=== PATIENT | female | born 1935 | race Caucasian/White ===

== ENCOUNTER 2016-10-13 08:10 | Inpatient (IN) | payer MEDICAID, OTHER ==
[~2016-10-13] VITALS: Ht 160 cm; Wt 48.1 kg
[2016-10-13] VITALS (21 sets, daily range): BP systolic 64–138; BP diastolic 33–79; PULSE 81–119; RESP 14–37; TEMP 98.7–99.5; O2SAT 80–100
[~2016-10-13 08:10] MED LIST: ACET-2165 PO; CARB1TAB21 GT; CAT.1 GT; CLON0.5T4 PO; CLON1POW; COLL100 GT; DEXT1CAP3 PO; DOCU-144 PO; DONE10TA4 PO; DONE10TA44 GT; ESCI10TA PO; FER300L GT; GLU500 PO; HYDR-1189 GT; INSU100V11 SQ; INSU100V7 SUBCUT; LACTIN GT; LEVE500T77 GT; LIP20 GT; LIP20 PO; LOVI30 SQ; MAGN400O4 GT; MAGN400O4 PO; MEGE400O2 PO; MEMA10TA12 PO; MEMA5TAB PO; MULT-1117; MULT240L3 GT; OLAN15TA3 PO; OLAN7.5T3 PO; PROR4 PO; RISP1TAB27 PO; RISP3TAB8 PO; SSNOVOLOG SUBCUT; TRIH2TAB3 PO; TYLL650 GT; VALS160T2; VIT C GT; ZIN220 GT; [UNRECOGNIZED DRUG - CODE] GT
--- NOTE | 2016-10-13 08:10 | NUR ---
Pt BIB BLS, placed to ER bed 01 and to alarm security or surveillance monitor. Pt report given to GUALBERTO Clayton.
--- NOTE | 2016-10-13 08:11 | NUR ---
RT called STAT Addendum: 10/13/16 at 0851 by VIET Patient placed on non-rebreather mask at 15L per MD verbal order.
--- NOTE | 2016-10-13 08:12 | NUR ---
Patient non-verbal, moans at times, limbs contracted. Per laborer steel handling patient began becoming tachycardia (120s) around 3AM. Patient appears to be in respiratory distress, non-rebreather mask present on arrival, tachypenic, accessory muscle usage and wheezing noted throughout lung feilds. Per laborer steel handling, the respiratory distress is patient's baseline. No other complaints/injuries per laborer steel handling/patient or noted.
--- NOTE | 2016-10-13 08:13 | NUR ---
RT at bedside. Patient's 02 93% on non-rebreather mask at 15L.
--- NOTE | 2016-10-13 08:13 | NUR ---
SBP 90's and levophed increased to 10 mcgs. Will continue to monitor.
--- NOTE | 2016-10-13 08:14 | NUR ---
Dr Gutierres at bedside.
[2016-10-13] MEDS ORDERED: NACL 0.9% 1,000 ML IV ONE ×3 (08:30→10:30)
[2016-10-13] MEDS ORDERED: IPRATROPIUM/ALBUTEROL SULFATE 3 ML AMPUL.NEB INH ONE (08:30)
--- NOTE | 2016-10-13 08:40 | NUR ---
RT placed patient on 2L NC (what patient is on at [facility] per paperwork). Addendum: 10/13/16 at 1240 by VIET per MD chappell order
--- NOTE | 2016-10-13 08:45 | NUR ---
93% on 2L NC (what patient is on at [facility] per paperwork).
[2016-10-13 08:55] LABS: BLOOD GAS BASE EXCESS 3.9 mmol/L (-3.0-3.0); BLOOD GAS COHb% 0.1 % (0.5-1.5); BLOOD GAS HHB 6.4 % (0.0-6.0); BLOOD GAS PH 7.357 (7.350-7.450); BLOOD O2Hb% 92.8 % (94.0-97.0)
[2016-10-13 09:02] LABS: BASOPHILS # (AUTO) 0.1 K/uL (0.0-0.2); BASOPHILS % (AUTO) 0.3 % (0.0-2.0); EOSINOPHILS # (AUTO) 0.2 K/uL (0.0-0.4); HEMOGLOBIN 10.6 g/dL (12.0-16.0); MEAN CORPUSCULAR HEMOGLOBIN 26 pg (27-31); MONOCYTES # (AUTO) 0.7 K/uL (0.0-1.0)
--- NOTE | 2016-10-13 09:02 | NUR ---
Spoke with Rossi BURCIAGA at [facility] who states that the martinez cath was changed today. Discussed with Dr. Gutierres who states that the trauma caused by changing a martinez would outweigh the benefit. Therefore martinez catheter was not changed out by protocol.
[2016-10-13 09:05] LABS: ANION GAP 5 (5-15); CHLORIDE 106 mmol/L (98-107); CREATININE 1.62 mg/dL (0.55-1.30); POTASSIUM 4.4 mmol/L (3.5-5.1); SODIUM SERUM 144 mmol/L (136-145); UREA NITROGEN, BLOOD 79 mg/dL (8-21)
[2016-10-13 09:08] LABS: INR 1.1 (0.8-1.2); PROTHROMBIN TIME 11.4 SECS (9.5-12.5)
[2016-10-13 09:10] LABS: ALANINE AMINOTRANSFERASE 12 U/L (12-78); ALBUMIN 2.6 g/dL (3.4-4.8); ASPARTATE AMINOTRANSFERASE 23 U/L (10-37); TOTAL BILIRUBIN 0.3 mg/dL (0.0-1.0)
[2016-10-13 09:11] LABS: GLUCOSE 433 mg/dL (70-99)
[2016-10-13 09:12] LABS: EOSINOPHILS % (AUTO) 0.6 % (0.0-4.0); LYMPHOCYTES % (AUTO) 8.8 % (20.5-51.5); MEAN CORPUSCULAR HGB CONC 31 % (32-36); MEAN CORPUSCULAR VOLUME 83 fL (79.0-98.0); NEUTROPHILS # (AUTO) 30.1 K/uL (1.8-7.7); PLATELET COUNT (AUTO) 666 K/uL (130-430); RED BLOOD CELL COUNT(AUTO) 4.08 MIL/uL (4.2-6.2); RED CELL DISTRIBUTION WIDTH 18.8 % (9.0-15.0); WHITE BLOOD COUNT (AUTO) 34.1 K/uL (4.8-10.8)
--- NOTE | 2016-10-13 09:15 | NUR ---
91% on 2L NC (what patient is on at [facility] per paperwork). Addendum: 10/13/16 at 1240 by VIET MD mata
--- NOTE | 2016-10-13 09:25 | NUR ---
Patient's respirations increasing (35-40), decreased tidal volume noted, 02 saturation decreasing to 83% on 02 2L NC (as uses at [facility]). RT called. Dr. Gutierres at bedside. Patient placed on non-rebreather mask at 15L per MD order, 02 saturation fails to rise depsite intervention. Addendum: 10/13/16 at 0946 by VIET Decreased accessory muscle usage noted.
[2016-10-13] MEDS ORDERED: ETOMIDATE 20 MG/ 10 ML VIAL (AMIDATE) IVP ONE (09:30)
[2016-10-13] MEDS ORDERED: SUCCINYLCHOLINE CHLORIDE 20 MG/ML(QUELICIN) IVP ONE (09:30)
[2016-10-13] MEDS ORDERED: ETOMIDATE 20 MG/ 10 ML VIAL (AMIDATE) ONE (09:30)
[2016-10-13] MEDS ORDERED: SUCCINYLCHOLINE CHLORIDE 20 MG/ML(QUELICIN) ONE (09:31)
--- NOTE | 2016-10-13 09:33 | NUR ---
Patient not known to be of DNR status. Patient medicated with 20 mg of Etomidate 0931 100mg of succinocholine 0932 for sedation prior to placement of ET tube. Respiratory therapy at bedside prior to placement. Size 7.5 ET tube 21cm at lip line placed by Dr. Gutierres. Cuff inflated with 10 cc air. Auscultation of breath sounds over bilateral chest wall and color change to CO2 detector. ET tube secured with tape. O2 sats 100% pulse ox. PCXR ordered to check tube placement.
--- NOTE | 2016-10-13 09:38 | NUR ---
Patient does not have any medication present at time of admission.
--- NOTE | 2016-10-13 09:40 | NUR ---
RT NOTES PT INTUBATED VIA ETT SIZE 7.5 AT 21CM LIP LINE BY DR PEREZ AT 0933. BILATERAL BREATH SOUND NOTED. ET CUFF INFLATED WITH 10CC AIR. ETT SECURED WITH LINDEN. PT CONNECTED TO VENTILATOR AT 0940 VIA SETTINGS-- AC 14 VT450 FIO2 40%-- PER DR PEREZ. FOLLOW BY ABG IN ONE HR.
--- NOTE | 2016-10-13 09:40 | NUR ---
Small amount of urine noted in martinez catheter drainage bag, not enough for sample, Dr. Gutierres aware.
[2016-10-13] MEDS ORDERED: AMIN30LI2 GT (09:41)
[2016-10-13] MEDS ORDERED: ASCO500T10 GT (09:41)
[2016-10-13] MEDS ORDERED: FAMO40TA7 GT (09:41)
[2016-10-13] MEDS ORDERED: ALBU2.5V7 INH (09:41)
[2016-10-13] MEDS ORDERED: NA P118E RC (09:41)
[2016-10-13] MEDS ORDERED: DULR10 RC (09:41)
[2016-10-13] MEDS ORDERED: IPRA4AER INH (09:41)
[2016-10-13] MEDS ORDERED: AMIO200T2 GT (09:41)
--- NOTE | 2016-10-13 09:42 | NUR ---
Medication reconciliation completed with information provided by [facility]. Any prior medication reconciliation on file was reviewed and corrected.
--- NOTE | 2016-10-13 09:55 | NUR ---
Patient moving head side to side, unable to remain still, appears to be uncomfortable, crying noted. MD aware. Propofol to begin per MD order.
[2016-10-13] MEDS ORDERED: PROPOFOL DRIP 100 ML IV ONE (10:00)
--- NOTE | 2016-10-13 10:00 | NUR ---
Propofol started at 5mcg/kg/min per MD order and protocol. Remaining with patient.
[2016-10-13 10:03] LABS: NEUTROPHILS % (AUTO) 88.3 % (40.0-70.0)
--- NOTE | 2016-10-13 10:05 | NUR ---
Patient continues to move head side to side, unable to remain still, appears uncomfortable, crying noted. Propofol titrated to 10mcg/kg/min per MD order and protocol. Remaining with patient.
--- NOTE | 2016-10-13 10:10 | NUR ---
Patient did not have enough urine output for sample until now. Dr. Gutierres aware that patient needs antibiotics for sepsis protocol but waiting for urine results in order to do so. MD will order antibiotics when results present.
[2016-10-13] MEDS ORDERED: LORazepam 2 MG/ML VIAL (FOR ER USE) IVP ONE (10:15)
[2016-10-13] MEDS ORDERED: ROCURONIUM BROMIDE 10 MG/ML (ZEMURON) IV ONE (10:15)
--- NOTE | 2016-10-13 10:15 | NUR ---
Patient continues to move head side to side, unable to remain still, appears uncomfortable, crying noted. Propofol titrated to 15mcg/kg/min per MD order and protocol. Remaining with patient.
--- NOTE | 2016-10-13 10:15 | NUR ---
Dr. Gutierres stated to hold rocuronium and ativan.
--- NOTE | 2016-10-13 10:25 | NUR ---
Patient continues to move head side to side, unable to remain still, appears uncomfortable. Propofol titrated to 20mcg/kg/min per MD order and protocol. Remaining with patient.
--- NOTE | 2016-10-13 10:30 | NUR ---
20G IV place to right lower leg after 5 attempts by ursing staff for second IV access.
--- NOTE | 2016-10-13 10:35 | NUR ---
Patient no longer moving head side to side, laying in bed calmly, appears comfortable. Propofol remaining at 20mcg/kg/min. Dr. Gutierres aware. Remaining with patient.
--- NOTE | 2016-10-13 10:36 | NUR ---
OG tube placed by Dr. Gutierres with immediant return of gastric content to LIS.
--- NOTE | 2016-10-13 10:50 | NUR ---
RT NOTES BASED ON POST INTUBATION ABG RESULTS, FIO2 INCREASED TO 50% PER DR. PEREZ. GUALBERTO ABRAHAM NOTIFED.
[2016-10-13 10:54] LABS: ABG TOTAL HEMOGLOBIN 9.7 G/dL (12.0-18.0); BLOOD GAS BASE EXCESS 0.1 mmol/L (-3.0-3.0); BLOOD GAS COHb% 0.1 % (0.5-1.5); BLOOD GAS HHB 9.9 % (0.0-6.0); BLOOD GAS PH 7.381 (7.350-7.450); BLOOD O2Hb% 89.3 % (94.0-97.0)
--- NOTE | 2016-10-13 11:00 | NUR ---
Dr. Gutierres notified that propofol is now effective, stated do not need to give rocuronium and ativan.
[2016-10-13 11:04] LABS: BILIRUBIN,URINE NEGATIVE (NEGATIVE); BLOOD, URINE 2+ (NEGATIVE); CLARITY/URINE HAZY (CLEAR); COLOR,URINE YELLOW (YELLOW); GLUCOSE,URINE NEGATIVE (NEGATIVE); KETONES,URINE NEGATIVE (NEGATIVE); LEUKOCYTE ESTERASE ,URINE 3+ (NEGATIVE); NITRITE, URINE POSITIVE (NEGATIVE); PH,URINE 7.5 (5.0-8.0); PROTEIN URINE 2+ (NEGATIVE); UROBILINOGEN,URINE 0.2 (0.2-1.0)
[2016-10-13 11:11] LABS: BACTERIA,URINE MODERATE /HPF (None Seen); MUCUS,URINE None Seen /LPF (None Seen); WBC,URINE >100 /HPF (0-3)
--- NOTE | 2016-10-13 11:15 | NUR ---
Patient will be admitted to care of Dr. Teran. Admitted to ICU unit. Will go to room 8. Belongings list completed. Summary report printed. Report given at bedside to Meri BURCIAGA.
--- NOTE | 2016-10-13 11:25 | NUR ---
Spoke to Meri ICU nurse about Dr. Gutierres ordering antibiotics for patient, stated will administer. aware
--- NOTE | 2016-10-13 11:35 | NUR ---
Note kelli in EDM - 10/13/16 at 1231 by VIET Patient no longer moving head side to side, laying in bed calmly, appears comfortable. Propofol remaining at 20mcg/kg/min. Dr. Guteirres aware. Remaining with patient.
[2016-10-13] MEDS ORDERED: MILK OF MAGNESIA 30 ML UDC PO PRN (11:45)
[2016-10-13] MEDS ORDERED: MILK OF MAGNESIA 30 ML UDC GT PRN (11:45)
[2016-10-13] MEDS ORDERED: NA PHOS,M-B/NA PHOS,DI-BA 118 ML (FLEET ENEMA) RC SCH (11:45)
[2016-10-13] MEDS: BISACODYL 10 MG/SUPPOSITORY RC SCH (11:45)
[2016-10-13] MEDS ORDERED: PIPERACILLIN/TAZO 3.375/DEX-IS 50 ML IV ONE (11:45)
[2016-10-13] MEDS ORDERED: VANCOMYCIN HCL 1 GM/NS PREMIX 250 ML IV ONE ×2 (11:45→14:45)
--- NOTE | 2016-10-13 11:45 | NUR ---
Received pt orally intubated 7.5/21 cm lip line . Sedated on diprivan at 20 mcgs infusing thru the left arm PICC line. sedated to Gibbs scale level 4. SR on monitor. VSS. HOB up. Pt has an oral NG tube and placement verified. Abd with colostomy and emptied for large formed brown stool. Good bowel sounds heard. Drew cath with foul smelling urine, brooke in bag. Pts extremites contracted. No pedal edema. Pulses felt. Pt has multiple decubs noted to both hips, and left ankle. Pt has a 20g IV to right foot with IVF infusing at 200 cc/hr. Will continue to monitor pt.
--- NOTE | 2016-10-13 11:49 | NUR ---
consult for dr. boo called (dr. arriola specification writer) spoke with julia dialed [phone]
--- NOTE | 2016-10-13 11:59 | NUR ---
consult for dr. brown (dr. griffith pavilion cutter) called spoke to marychuy dialed [phone]
[2016-10-13] MEDS ORDERED: AMIODARONE HCL 200 MG TABLET GT ONE (12:15)
[2016-10-13] MEDS ORDERED: BISACODYL 10 MG/SUPPOSITORY RC ONE (12:15)
--- NOTE | 2016-10-13 13:00 | NUR ---
Dr. Gallagher in to see pt. Orders left. Cultures for Blood, sputum, urine sent to lab by ED. ABX will be started. Urine output low and Dr. Gallagher aware. He would like to be called later today if it remains low. Will continue to monitor.
[2016-10-13] MEDS: ALBUTEROL SULFATE 0.083% 2.5 MG/3 ML VIAL.NEB INH PRN ×3 (13:18→20:07)
[2016-10-13] MEDS: MEROPENEM 500 MG in NS 50 ML IV SCH ×2 (13:19→22:43)
[2016-10-13] MEDS: 0.45% NS 1,000 ML IV SCH ×3 (13:19→22:51)
--- NOTE | 2016-10-13 13:30 | NUR ---
Repositioned in bed with pillow support. VSS. SR on monitor. Will continue to monitor. Dr. Fisherium in to see pt. Orders left.
--- NOTE | 2016-10-13 15:30 | NUR ---
Wound care done to all wounds. Photos taken and posted. Repositioned pt in bed with pillow support.
[2016-10-13] MEDS: AMIODARONE HCL 200 MG TABLET GT SCH (16:30)
[2016-10-13] MEDS: CARBIDOPA/LEVODOPA 25/100 MG TABLET GT SCH ×2 (16:32→22:44)
[2016-10-13] MEDS ORDERED: NOREPINEPHRINE 4 MG/4 ML VIAL IV ONE (16:48)
[2016-10-13] MEDS: ACETAMINOPHEN 650 MG/20.3 ML UDC GT PRN (17:03)
[2016-10-13] MEDS ORDERED: LORazepam 2 MG/ML VIAL ONE (17:03)
[2016-10-13] MEDS: HYDROCORTISONE SOD SUCC 100 MG/2 ML VIAL IVP SCH ×2 (17:15→22:44)
[2016-10-13] MEDS: INSULIN REGULAR, HUMAN 100 UNITS/ML, 10 ML VIAL (novoLIN R) SUBCUT PRN (17:21)
--- NOTE | 2016-10-13 17:25 | NUR ---
RT NOTES Dr Gallagher added PEEP 4 cmH2O on vent settings per RN.
[2016-10-13] MEDS ORDERED: HYDROCORTISONE SOD SUCC 100 MG/2 ML VIAL IVP ONE (17:30)
--- NOTE | 2016-10-13 17:50 | NUR ---
SBP 60-70's. Dr. Gallagher notified and orders left.
--- NOTE | 2016-10-13 18:10 | NUR ---
Levophed started at 5 mcgs/min for SBP 60's. Will continue to monitor.
[2016-10-13] MEDS: NOREPINEPHRINE BITARTRATE 4 MG in NS 246 ML IV PRN ×2 (18:15→22:53)
[2016-10-13] MEDS: LORazepam 2 MG/ML VIAL IVP PRN (18:30)
--- NOTE | 2016-10-13 18:30 | NUR ---
Levophed increased to 7mchs for SBP 80's. Will continue to monitor.
--- NOTE | 2016-10-13 18:45 | NUR ---
Levophed increased to 10 mcgs. Will continue to monitor.
--- NOTE | 2016-10-13 19:25 | NUR ---
PM SHIFT ASSESSMENT Pt is unable to make needs known due to sedation. Diprivan @25 mcg/kg/min, Gibbs scale of 4. No s/s of acute distressed noted. Pt is vented, and tolerating settings well. SR/ST noted on monitor. PICC line to YASIR and ALTAGRACIA, no s/s of infiltration noted. IVF infusing. Levophed infusing @ 14 mcg/min, all VS stable. OG tube noted, auscultated for correct placement, clamped. Gtube noted, auscultated for correct placement, clamped. Colostomy bag noted at LLQ. Drew catheter draining to gravity. Multiple wounds noted with dressings in place, clean, dry and intact. Safety precautions in place, will continue to monitor.
--- NOTE | 2016-10-13 19:30 | NUR ---
LEVOPHED titrated from 12mcg/min to 14mcg/min. Will continue to monitor.
[2016-10-13] MEDS: PROPOFOL DRIP 100 ML IV PRN (20:04)
[2016-10-13] MEDS: FAMOTIDINE 20 MG TABLET GT SCH (22:44)
[2016-10-13] MEDS: DOCUSATE SODIUM 100 MG/10 ML UDC GT SCH (22:44)
--- NOTE | 2016-10-13 23:30 | NUR ---
LEVOPHED titrated from 14mcg/min to 10mcg/min. Will continue to monitor.
--- NOTE | 2016-10-13 23:30 | NUR ---
DIPRIVAN titrated from 25mcg/kg/min to 30mcg/kg/min. Will continue to monitor.
[2016-10-14] VITALS (36 sets, daily range): BP systolic 94–164; BP diastolic 27–59; PULSE 64–83; RESP 17–26; TEMP 97–98; O2SAT 97–100
[2016-10-14] MEDS: INSULIN REGULAR, HUMAN 100 UNITS/ML, 10 ML VIAL (novoLIN R) SUBCUT PRN ×4 (01:18→18:32)
--- NOTE | 2016-10-14 01:30 | NUR ---
LEVOPHED titrated from 10mcg/min to 8mcg/min. Will continue to monitor.
[2016-10-14] MEDS: 0.45% NS 1,000 ML IV SCH ×4 (02:45→18:25)
[2016-10-14] MEDS ORDERED: NOREPINEPHRINE 4 MG/4 ML VIAL IV ONE (03:24)
[2016-10-14] MEDS: PROPOFOL DRIP 100 ML IV PRN ×2 (04:28→18:05)
--- NOTE | 2016-10-14 04:30 | NUR ---
LEVOPHED titrated from 8mcg/min to 5mcg/min. Will continue to monitor.
--- NOTE | 2016-10-14 05:05 | NUR ---
CHG CHG bath given. Pt tolerated care well. Will continue to monitor.
[2016-10-14] MEDS: NOREPINEPHRINE BITARTRATE 4 MG in NS 246 ML IV PRN (05:18)
[2016-10-14] MEDS: MEROPENEM 500 MG in NS 50 ML IV SCH ×3 (05:28→22:24)
[2016-10-14] MEDS: HYDROCORTISONE SOD SUCC 100 MG/2 ML VIAL IVP SCH ×3 (05:28→22:24)
--- NOTE | 2016-10-14 06:00 | NUR ---
LEVOPHED titrated off. Will continue to monitor.
[2016-10-14 06:14] LABS: HEMATOCRIT 24.8 % (36-48); HEMOGLOBIN 8.2 g/dL (12.0-16.0); MEAN CORPUSCULAR HEMOGLOBIN 28 pg (27-31); MEAN CORPUSCULAR HGB CONC 33 % (32-36); MEAN CORPUSCULAR VOLUME 83 fL (79.0-98.0); PLATELET COUNT (AUTO) 448 K/uL (130-430); RED BLOOD CELL COUNT(AUTO) 2.98 MIL/uL (4.2-6.2); RED CELL DISTRIBUTION WIDTH 18.2 % (9.0-15.0)
[2016-10-14 06:37] LABS: WHITE BLOOD COUNT (AUTO) 38.5 K/uL (4.8-10.8)
[2016-10-14 06:44] LABS: ANION GAP 7 (5-15); CHLORIDE 114 mmol/L (98-107); CREATININE 1.17 mg/dL (0.55-1.30); GLUCOSE 390 mg/dL (70-99); POTASSIUM 3.9 mmol/L (3.5-5.1); SODIUM SERUM 146 mmol/L (136-145); UREA NITROGEN, BLOOD 55 mg/dL (8-21)
--- NOTE | 2016-10-14 07:35 | NUR ---
ENDORSEMENT Pt care endorsed to GUALBERTO Acuna at bedside using nursing SBAR.
--- NOTE | 2016-10-14 07:50 | NUR ---
Call placed to Dr. Vivas's exchange to report positive blood culture.
[2016-10-14 08:02] LABS: BLOOD GAS BASE EXCESS -3.7 mmol/L (-3.0-3.0); BLOOD GAS PH 7.419 (7.350-7.450)
[2016-10-14 08:03] LABS: ABG TOTAL HEMOGLOBIN 7.8 G/dL (12.0-18.0); BLOOD GAS COHb% 0.2 % (0.5-1.5); BLOOD GAS HHB 2.4 % (0.0-6.0); BLOOD O2Hb% 97.2 % (94.0-97.0)
[2016-10-14] MEDS: DOCUSATE SODIUM 100 MG/10 ML UDC GT SCH ×2 (09:00→21:04)
[2016-10-14] MEDS: BISACODYL 10 MG/SUPPOSITORY RC SCH (09:00)
[2016-10-14 09:09] LABS: BAND % (MANUAL) 37 % (0-6); BASOPHILS % (MANUAL) 0 % (0-2); EOSINOPHILS % (MANUAL) 0 % (0-7); LYMPHOCYTES % (MANUAL) 6 % (20-46); METAMYELOCYTES % 5 % (0-0); MONOCYTES % (MANUAL) 1 % (0-11)
[2016-10-14] MEDS: FERROUS SULFATE 300 MG/5 ML UDC GT SCH (09:37)
[2016-10-14] MEDS: AMIODARONE HCL 200 MG TABLET GT SCH (09:38)
[2016-10-14] MEDS: ASCORBIC ACID 500 MG TABLET GT SCH (09:39)
[2016-10-14] MEDS: CARBIDOPA/LEVODOPA 25/100 MG TABLET GT SCH ×3 (09:39→21:03)
[2016-10-14] MEDS: FAMOTIDINE 20 MG TABLET GT SCH ×2 (09:39→21:03)
[2016-10-14] MEDS: MULTIVITS W-MIN/FERROUS GLUC 15 ML UDC GT SCH (09:40)
[2016-10-14] MEDS: ENOXAPARIN SODIUM 30 MG/0.3 ML SYRINGE SQ SCH (09:41)
--- NOTE | 2016-10-14 09:45 | NUR ---
Meds given this AM through G-tube and G-tube leaking same color as meds given earlier. Abd soft with bowel sounds. Will monitor. Comfortable on Diprivan at 20 mcgs.
--- NOTE | 2016-10-14 11:00 | NUR ---
Wound care done to both hips and left ankle. GT dressing changed.
[2016-10-14] MEDS: LORazepam 2 MG/ML VIAL IVP PRN ×2 (11:03→20:32)
--- NOTE | 2016-10-14 11:15 | NUR ---
Call out to Dr. Vivas to report corrected blood culture report. No call back from earlier this AM.
--- NOTE | 2016-10-14 12:15 | NUR ---
Dr. Gallagher in to see pt. Orders left. Rt made aware of vent changes.
--- NOTE | 2016-10-14 12:45 | NUR ---
Oral NG removed and left upper PICC line removed per MD order.
[2016-10-14] MEDS ORDERED: GENTAMICIN 100 mg/50 mL NS 50 ML IV ONE (13:00)
--- NOTE | 2016-10-14 14:01 | NUR ---
consult for dr. san called spoke to radha dialed [phone]
--- NOTE | 2016-10-14 15:00 | NUR ---
Dr. lim informed of leaking G-tube site. Orders left. Consult called to Dr. Lind. Addendum: 10/14/16 at 1611 by Kalpana Wing RN above entry occurred at 1355 .
--- NOTE | 2016-10-14 15:20 | NUR ---
Spoke with Dr. Lind regarding G-tube site leaking green stomach content. Orders left.
--- NOTE | 2016-10-14 15:40 | NUR ---
Too called to inform staff that KUB will not give results MD is looking for. Recommended contrast. Called Dr. Lind and he agreed. Too informed.
[2016-10-14] MEDS ORDERED: GASTROGRAFIN 120 ML ONE (16:19)
--- NOTE | 2016-10-14 19:00 | NUR ---
Report given to oncoming staff. Diprivan at 15 mcgs and pt sedated to caceres level 4.
--- NOTE | 2016-10-14 19:30 | NUR ---
PM SHIFT ASSESSMENT Pt is unable to make needs known due to sedation. Diprivan @15 mcg/kg/min, Gibbs scale of 4. No s/s of acute distressed noted. Pt is vented, and tolerating settings well. SR noted on monitor. PICC line ALTAGRACIA, no s/s of infiltration noted. IVF infusing. VS stable. Gtube noted, auscultated for correct placement, clamped. Colostomy bag noted at LLQ. Drew catheter draining to gravity. Multiple wounds noted with dressings in place, clean, dry and intact. Safety precautions in place, will continue to monitor.
--- NOTE | 2016-10-14 20:20 | NUR ---
DIPRIVAN titrated from 15mcg/kg/min to 25mcg/kg/min. Will continue to monitor.
--- NOTE | 2016-10-14 21:00 | NUR ---
DIPRIVAN titrated from 25mcg/kg/min to 20mcg/kg/min. Will continue to monitor.
[2016-10-15] VITALS (35 sets, daily range): BP systolic 101–152; BP diastolic 30–64; PULSE 64–91; RESP 10–34; TEMP 96.7–98.2; O2SAT 93–100; Ht 160 cm; Wt 48.1 kg
[2016-10-15] MEDS: INSULIN REGULAR, HUMAN 100 UNITS/ML, 10 ML VIAL (novoLIN R) SUBCUT PRN ×5 (00:32→23:43)
[2016-10-15] MEDS: 0.45% NS 1,000 ML IV SCH ×4 (00:40→23:41)
--- NOTE | 2016-10-15 04:30 | NUR ---
DIPRIVAN titrated from 20mcg/kg/min to 15mcg/kg/min. Will continue to monitor.
[2016-10-15] MEDS: MEROPENEM 500 MG in NS 50 ML IV SCH ×3 (05:41→21:18)
[2016-10-15] MEDS: HYDROCORTISONE SOD SUCC 100 MG/2 ML VIAL IVP SCH ×3 (05:42→21:16)
[2016-10-15 06:53] LABS: ALANINE AMINOTRANSFERASE 10 U/L (12-78); ALBUMIN 1.7 g/dL (3.4-4.8); ANION GAP 10 (5-15); ASPARTATE AMINOTRANSFERASE 36 U/L (10-37); CALCIUM 8.4 mg/dL (8.4-11.0); CHLORIDE 114 mmol/L (98-107); CREATININE 0.75 mg/dL (0.55-1.30); GLUCOSE 200 mg/dL (70-99); SODIUM SERUM 146 mmol/L (136-145); TOTAL BILIRUBIN 0.2 mg/dL (0.0-1.0); TOTAL PROTEIN, SERUM 6.5 g/dL (6.4-8.3); UREA NITROGEN, BLOOD 34 mg/dL (8-21)
[2016-10-15 07:00] LABS: POTASSIUM 2.7 mmol/L (3.5-5.1)
[2016-10-15 07:11] LABS: HEMATOCRIT 25.4 % (36-48); HEMOGLOBIN 8.1 g/dL (12.0-16.0); MEAN CORPUSCULAR HEMOGLOBIN 26 pg (27-31); MEAN CORPUSCULAR HGB CONC 32 % (32-36); MEAN CORPUSCULAR VOLUME 82 fL (79.0-98.0); PLATELET COUNT (AUTO) 345 K/uL (130-430); RED BLOOD CELL COUNT(AUTO) 3.08 MIL/uL (4.2-6.2); RED CELL DISTRIBUTION WIDTH 18.9 % (9.0-15.0)
--- NOTE | 2016-10-15 07:25 | NUR ---
ENDORSEMENT Pt care endorsed to GUALBERTO Acuna at bedside using nursing SBAR.
[2016-10-15 07:29] LABS: WHITE BLOOD COUNT (AUTO) 22.6 K/uL (4.8-10.8)
--- NOTE | 2016-10-15 07:30 | NUR ---
Received pt sedated on diprivan comfortably. Arouses to stimuli. 7.5 ET taped 21 cm lip line. Comfortable on AC 10/450/40%/p5. Suctioned thick yellow secretions from ET. Refuses oral care and clenches teeth with bite block in place. HOB up. ABD with colostomy and GT in place and GT is not leaking. Bowel sounds audible. Right upper arm PICC line in place with IVF infusing at 10 cc/hr and diprivan at 15 mcgs, sedated to caceres scale of level 4. Multiple wounds to hips and ankle with dressings in place. Drew cath with yellow urine in bag. Will continue to monitor pt.
[2016-10-15] MEDS: PROPOFOL DRIP 100 ML IV PRN ×2 (07:34→17:58)
[2016-10-15 08:04] LABS: ABG TOTAL HEMOGLOBIN 7.7 G/dL (12.0-18.0); BLOOD GAS PH 7.333 (7.350-7.450)
[2016-10-15 08:05] LABS: BLOOD GAS COHb% 0.5 % (0.5-1.5); BLOOD GAS HHB 6.3 % (0.0-6.0); BLOOD O2Hb% 92.4 % (94.0-97.0)
[2016-10-15] MEDS: ALBUTEROL SULFATE 0.083% 2.5 MG/3 ML VIAL.NEB INH PRN (08:12)
[2016-10-15] MEDS ORDERED: KCL 40 mEq in 100 mL (PREMIX) 100 ML IV ONE (08:45)
--- NOTE | 2016-10-15 08:56 | NUR ---
Nutrition Update Abdulkadir Scale 10 noted. Pt admitted for septic shock, acute respiratory failure. Diet: N/A BMI: 18.8 kg/m2 RD to follow per nutrition care standards.
[2016-10-15] MEDS: DOCUSATE SODIUM 100 MG/10 ML UDC GT SCH ×2 (09:00→21:16)
[2016-10-15] MEDS: BISACODYL 10 MG/SUPPOSITORY RC SCH (09:00)
--- NOTE | 2016-10-15 09:00 | NUR ---
Pt repositioned in bed with pillow support. HOB up. Pt sedated to caceres scale of level 4. SR on monitor.
[2016-10-15 09:27] LABS: ATYPICAL LYMPHOCYTES % 0 % (0-0); BAND % (MANUAL) 19 % (0-6); BASOPHILS % (MANUAL) 0 % (0-2); EOSINOPHILS % (MANUAL) 0 % (0-7); LYMPHOCYTES % (MANUAL) 10 % (20-46); METAMYELOCYTES % 4 % (0-0); MONOCYTES % (MANUAL) 5 % (0-11)
[2016-10-15] MEDS ORDERED: POTASSIUM CHLORIDE 20 MEQ/PKT PACKET PO ONE (09:45)
[2016-10-15] MEDS ORDERED: FUROSEMIDE 20 MG/2 ML VIAL IVP ONE (09:45)
[2016-10-15] MEDS: AMIODARONE HCL 200 MG TABLET GT SCH (10:02)
[2016-10-15] MEDS: MULTIVITS W-MIN/FERROUS GLUC 15 ML UDC GT SCH (10:02)
[2016-10-15] MEDS: FERROUS SULFATE 300 MG/5 ML UDC GT SCH (10:03)
[2016-10-15] MEDS: FAMOTIDINE 20 MG TABLET GT SCH ×2 (10:03→21:15)
[2016-10-15] MEDS: ASCORBIC ACID 500 MG TABLET GT SCH (10:03)
[2016-10-15] MEDS: CARBIDOPA/LEVODOPA 25/100 MG TABLET GT SCH ×3 (10:03→21:16)
[2016-10-15] MEDS: ENOXAPARIN SODIUM 30 MG/0.3 ML SYRINGE SQ SCH (10:04)
--- NOTE | 2016-10-15 11:30 | NUR ---
Repositioned in bed with pillow support. Continues to be difficult to do oral care with bite block in place. HOB up. SUctioned for thick yellow secretions in ET. Tachypnic at times.
[2016-10-15] MEDS: LORazepam 2 MG/ML VIAL IVP PRN (11:39)
--- NOTE | 2016-10-15 13:00 | NUR ---
CARE ASSUMED CARE ASSUMED FROM Kamryn CORCORAN RN. RESTING QUIETLY, ON VENT, NO RESP DISTRESS. HAS DROOLING OF ORAL SECRETIONS. HAS BITE BLOCK IN PLACE, KEEPS TEETH CLAMPED, UNABLE TO DO ORAL SUCTIONING, ENDOTRACHEAL SUCTIONING DONE.
--- NOTE | 2016-10-15 13:15 | NUR ---
Spoke with Dr. Casarez on the phone and clarified tube feeding order.
--- NOTE | 2016-10-15 13:30 | NUR ---
Report given to Lesia BURCIAGA to assume care.
--- NOTE | 2016-10-15 14:00 | NUR ---
REPOSITIONED REPOSITIONED IN BED, ALL EXTREMITIES ARE CONTRACTED, HAS WOUNDS ON BOTH HIPS. HEELS FLOATED OFF BED WITH PILLOWS, IS ON AIR MATTRESS. COLOSTOMY WITH DK GREEN LIQUID STOOL.
--- NOTE | 2016-10-15 16:00 | NUR ---
FEEDING TUBE FEEDING STARTED WITH NUTREN PULMONARY. WOUND CARE DONE TO WOUNDS LEFT HEEL, LEFT HIP/BUTTOCK, RIGHT HIP/BUTTOCK. RECEIVING DIPRIVAN CONTINUOUSLY AT 15MCG/KG/MIN.
[2016-10-15] MEDS: MUPIROCIN 2% TOPICAL OINTMENT 22 GM TP SCH ×2 (16:08→21:15)
--- NOTE | 2016-10-15 19:10 | NUR ---
REPORT REPORT GIVEN TO NIGHT NURSE TO ASSUME CARE.
--- NOTE | 2016-10-15 19:30 | NUR ---
PM ASSESSMENT PT OBTUNDED, RESPONDS TO NOXIOUS PAIN. INTUBATED TO VENT, SETTINGS AC12, TV400, FIO2 40%, PEEP5. RHONCHI AUSCULTATED BILAT UPPER LOBES, DIMINISHED BILAT LOWER LOBES. ETT 7.5/ 21LL. SR ON THE MONITOR. GT IN PLACE, INFUSING NUTREN PULMONARY@20ML/HR, 60ML RESIDUAL. ROTH CATHETER DRAINING TO GRAVITY W/ YELLOW URINE. COLOSTOMY ON LLQ W/ LOOSE BROWN GREEN STOOL. WOUNDS ON LT AND RT HIPS, SACRUM, AND LT ANKLE ALL COVERED W/ CLEAN DRY DRESSINGS. CONTRACTED ON BUE AND BLE. IV SITE ON ALTAGRACIA PICC DOUBLE LUMEN, INTACT AND PATENT, INFUSING 1/2NS AND PROPOFOL. SAFETY AND ISOLATION PRECAUTIONS IN PLACE, WILL CONTINUE TO MONITOR.
[2016-10-16] VITALS (33 sets, daily range): BP systolic 102–191; BP diastolic 34–81; PULSE 72–103; RESP 17–30; TEMP 96.6–99.2; O2SAT 94–100
--- NOTE | 2016-10-16 02:00 | NUR ---
RESIDUAL RESIDUAL 165ML, FEEDING STOPPED, WILL RECHECK.
--- NOTE | 2016-10-16 04:00 | NUR ---
RESIDUAL RESIDUAL 60ML, FEEDING CONTINUED TO BE OFF, WILL RECHECK.
[2016-10-16] MEDS: INSULIN REGULAR, HUMAN 100 UNITS/ML, 10 ML VIAL (novoLIN R) SUBCUT PRN ×3 (05:36→17:38)
[2016-10-16] MEDS: MEROPENEM 500 MG in NS 50 ML IV SCH ×3 (05:38→22:33)
[2016-10-16] MEDS: HYDROCORTISONE SOD SUCC 100 MG/2 ML VIAL IVP SCH ×2 (05:39→20:41)
--- NOTE | 2016-10-16 06:00 | NUR ---
RESIDUAL RESIDUAL 30ML, FEEDING CONTINUED AT 20ML/HR.
[2016-10-16] MEDS: PROPOFOL DRIP 100 ML IV PRN (06:15)
[2016-10-16 06:27] LABS: ALANINE AMINOTRANSFERASE 9 U/L (12-78); ALBUMIN 1.6 g/dL (3.4-4.8); ANION GAP 6 (5-15); ASPARTATE AMINOTRANSFERASE 15 U/L (10-37); CALCIUM 8.4 mg/dL (8.4-11.0); CHLORIDE 116 mmol/L (98-107); CREATININE 0.74 mg/dL (0.55-1.30); GLUCOSE 285 mg/dL (70-99); POTASSIUM 3.4 mmol/L (3.5-5.1); SODIUM SERUM 145 mmol/L (136-145); TOTAL BILIRUBIN 0.2 mg/dL (0.0-1.0); TOTAL PROTEIN, SERUM 6.1 g/dL (6.4-8.3); UREA NITROGEN, BLOOD 27 mg/dL (8-21)
[2016-10-16 06:55] LABS: HEMATOCRIT 24.1 % (36-48); HEMOGLOBIN 7.4 g/dL (12.0-16.0); MEAN CORPUSCULAR HEMOGLOBIN 26 pg (27-31); MEAN CORPUSCULAR HGB CONC 31 % (32-36); MEAN CORPUSCULAR VOLUME 84 fL (79.0-98.0); PLATELET COUNT (AUTO) 371 K/uL (130-430); RED BLOOD CELL COUNT(AUTO) 2.88 MIL/uL (4.2-6.2); RED CELL DISTRIBUTION WIDTH 18.4 % (9.0-15.0)
[2016-10-16 06:57] LABS: WHITE BLOOD COUNT (AUTO) 20.8 K/uL (4.8-10.8)
--- NOTE | 2016-10-16 07:29 | NUR ---
CLOSING ALL NEEDS MET. ENDORSED CARE TO CHARGE NURSE GUALBERTO DONOVAN.
[2016-10-16 07:51] LABS: BLOOD GAS BASE EXCESS -3.2 mmol/L (-3.0-3.0); BLOOD GAS PH 7.398 (7.350-7.450)
[2016-10-16 07:52] LABS: ABG TOTAL HEMOGLOBIN 7.6 G/dL (12.0-18.0); BLOOD GAS COHb% 0.2 % (0.5-1.5); BLOOD GAS HHB 0.8 % (0.0-6.0); BLOOD O2Hb% 98.2 % (94.0-97.0)
--- NOTE | 2016-10-16 08:00 | NUR ---
ASSESSMENT IS NOT AROUSABLE TO VERBAL OR TACTILE STIMULUS, RECEIVING DIPRIVAN. DIPRIVAN REDUCED TO 10MCG/KG/MIN. RESISTS ORAL CARE, HAS ORAL AIRWAY IN PLACE DUE TO BITING ON ETT. SM AMT SUCTIONED VIA ETT. COLOSTOMY W DK, GREEN DRAINAGE, SM AMT OF STOOL. ROTH DRAINING CLEAR REHANA URINE. ALL EXTREMITIES ARE CONTRACTED, IS ON AIR MATTRESS, HEELS ELEVATED OFF BED W PILLOW. GT TUBE W FEEDING, NUTREN PULMONARY, 60 CC RESIDUAL, FEEDING WILL BE HELD UNTIL MEDS ARE GIVEN.
[2016-10-16] MEDS: BISACODYL 10 MG/SUPPOSITORY RC SCH (09:00)
[2016-10-16 09:27] LABS: ATYPICAL LYMPHOCYTES % 0 % (0-0); BAND % (MANUAL) 2 % (0-6); BASOPHILS % (MANUAL) 0 % (0-2); EOSINOPHILS % (MANUAL) 0 % (0-7); LYMPHOCYTES % (MANUAL) 6 % (20-46); MONOCYTES % (MANUAL) 2 % (0-11)
--- NOTE | 2016-10-16 09:41 | NUR ---
0830 FIO2 TITRATED DOWN TO 30%, SAT 100%, PT TOLERATING. Addendum: 10/16/16 at 0941 by Kenya Jefferson RT Amended: Links added.
[2016-10-16] MEDS ORDERED: FUROSEMIDE 20 MG/2 ML VIAL IVP ONE (09:45)
[2016-10-16] MEDS ORDERED: POTASSIUM CHLORIDE 40 MEQ in 0.45% NS 250 ML IV ONE (10:00)
[2016-10-16] MEDS: AMIODARONE HCL 200 MG TABLET GT SCH (10:00)
[2016-10-16] MEDS: DOCUSATE SODIUM 100 MG/10 ML UDC GT SCH ×2 (10:01→20:42)
[2016-10-16] MEDS: CARBIDOPA/LEVODOPA 25/100 MG TABLET GT SCH ×3 (10:02→20:42)
[2016-10-16] MEDS: FERROUS SULFATE 300 MG/5 ML UDC GT SCH (10:02)
[2016-10-16] MEDS: FAMOTIDINE 20 MG TABLET GT SCH ×2 (10:02→20:42)
[2016-10-16] MEDS: ASCORBIC ACID 500 MG TABLET GT SCH (10:02)
[2016-10-16] MEDS: ENOXAPARIN SODIUM 30 MG/0.3 ML SYRINGE SQ SCH (10:03)
[2016-10-16] MEDS: MULTIVITS W-MIN/FERROUS GLUC 15 ML UDC GT SCH (10:07)
[2016-10-16] MEDS: MUPIROCIN 2% TOPICAL OINTMENT 22 GM TP SCH ×2 (10:08→20:41)
--- NOTE | 2016-10-16 11:00 | NUR ---
MD VISITS DR. DODD SAW PT EARLIER THIS AM, DR. BUTT EXAMINED AND ORDERED. DR. BAILEY EXAMINED, INFORMED OF BLOOD CULTURE RESULTS.
--- NOTE | 2016-10-16 11:16 | NUR ---
VENT CHANGES VENT SETTING CHANGED BY RT, SIMV /03/28 PER MD ORDERS.
--- NOTE | 2016-10-16 12:00 | NUR ---
ASSESSMENT TOLERATING VENT CHANGES AND TUBE FEEDING. HAS LG AMT ORAL SECRETIONS, SUCTIONED. KEEPS MOUTH/TEETH CLENCHED RESULTING IN DIFFICULTY PERFORMING ORAL CARE.
[2016-10-16] MEDS: IPRATROPIUM BROM 0.5 MG/2.5 ML VIAL.NEB (ATROVENT) INH SCH ×2 (13:42→19:40)
[2016-10-16] MEDS: LevALBUTEROL HCL 1.25 MG/0.5 ML *CONC.* VIAL.NEB (XOPENEX CONC.) INH SCH ×2 (13:42→19:40)
[2016-10-16] MEDS: 0.45% NS 1,000 ML IV SCH (14:00)
[2016-10-16] MEDS: GENTAMICIN 100 MG/ ISO-OSM 50 ML PREMIX IV SCH (15:04)
--- NOTE | 2016-10-16 15:20 | NUR ---
WOUND CARE WOUND CARE NURSE AT BEDSIDE TO ASSESS WOUNDS AND RECOMMEND TREATMENT - SEE NOTES BY WOUND CARE NURSE. HEART RATE AND RESP ELEVATED DURING WOUND CARE, MD CALLED FOR PAIN MEDICATION WHICH WAS ADMINISTERED.
--- NOTE | 2016-10-16 15:20 | NUR ---
Wound Evaluation: Wound Consult ordered by Dr. Teran. Thank you, Dr. Teran, for the consult. Patient received in an ICU [facility] bed on a low air-loss mattress, awake, non-verbal, non-responsive to verbal cues. Skin is poor. Past medical history: Diabetes Mellitus, Hypertension, Advanced Dementia, Parkinson's Disease, Hyperlipidemia, recurrent UTI's, Dysphagia, on G-Tube feeding, Malnutrition, prior Stage IV Decubitus Ulcer and multiple Stage II and III decubitus ulcers. Labs: WBC 20.8, RBC 2.88, Hgb 7.4, Hct 24.1, K 3.4, Cl 116, BUN 27, Creat 0.74, Gluc 285, Alb 1.6. Blood Culture x 2 positive for Acinetobacter Baumanii/Haemol, WET END HELPER. Endotracheal Sputum Culture results in progress. MRSA Screen positive. Urine void culture positive for Proteus Mirabilis and Providencia Stuartii. Intrinsic Factors that delay wound healing: Diabetes Mellitus, Anemia. Extrinsic factors that decrease wound healing: immobility, very limited turning areas available. Sacral, Coccygeal, and buttocks areas have scar tissue. Wound Assessment: 1) Left Hip: Unstageable Pressure Ulcer, present on admission. Wound bed is 10% pink tissue, 80% yellow tissue, 10% red tissue. No odor, scant sanguineous drainage. Colt-wound and surrounding tissue has scar tissue. Measures 6.1 cm x 8.0 cm x 1.4 cm. Undermining present from 8-2 o'clock, deepest 1.8 cm at 10 o'clock. Recommend: Cleanse wound with normal saline. Pat dry. Put moisture barrier cream onto colt-wound. Put Venelex ointment onto wound bed. Place 2.2 inch tender wet dressing into wound cavity. Cover with foam dressings, then transparent dressings. Perform wound care daily and as needed for dressing soiling or dislodgment. 2) Right Lateral Buttock: Prior Stage 4 Pressure Ulcer, present on admission. 90% yellow tissue, 10% red tissue. No odor, scant serous drainage. White colt-wound. Measures 5.0 cm x 1.5 cm. 3) Right Buttock, Medial to Wound 2): Unstageable Pressure Ulcer, present on admission. 50% yellow tissue, 50% pink tissue. No odor, no drainage. White colt-wound. Measures 5.5 cm x 1.5 cm x 0.5 cm. Undermining present from 7-10 o'clock, deepest 0.4 cm at 9 o'clock. Recommend: Cleanse wounds with normal saline. Pat dry. Put moisture barrier cream onto colt-wounds. Put Venelex ointment onto wound beds. Cover with foam dressings, then transparent dressings. Perform wound care daily and as needed for dressing soiling or dislodgment. 4) Right Buttock, Medial to Wound 2): Area of non-intact skin, medial to Wound 3), present on admission. 100% red tissue. No odor, no drainage. White colt-wound. Measures 4.5 cm x 0.5 cm. Recommend: Cleanse wound with normal saline. Pat dry. Put moisture barrier cream onto wound and colt-wound. Put Venelex ointment onto any portion of wound not covered by moisture barrier cream. Cover with foam dressing, then transparent dressings. Perform wound care daily and as needed for dressing soiling or dislodgment. 5) Left Buttock near Ischium: Scar tissue, present on admission. No odor, no drainage. 6) Coccygeal area: 100% brown eschar. No odor, no drainage. Periwound intact. Measures 0.7 cm X 0.5 cm. Recommend: Cover with foam dressing for protection. Change dressing daily, and as needed for dressing soiling or dislodgment. 7) Left Medial Great Toe: Blanchable redness, present on admission. No odor, no drainage. 8) left foot metatarsal head: Blanchable redness, present on admission. No odor, no drainage. Recommend: Cover with foam dressing for protection. Change dressing daily, and as needed for dressing soiling or dislodgment. Elevate, offload and float bilateral feet and heels with pillows at all times. Also recommend: Reposition patient side to side only every two hours with pillow support, off-load heels in bilateral heel boots, off-load pressure areas with pillows for pressure re-distribution. Do not place patient flat on her back. Perform skin care and monitor skin integrity q shift. Use moisture barrier cream on moisture susceptible areas qid and prn for soiling. Elevate, offload, and float bilateral heels with Heelift Boots. Maintain patient on a Low Air-Loss Mattress.
[2016-10-16] MEDS ORDERED: MORPHINE 2 MG/ML INJ. SYRINGE ONE (15:51)
--- NOTE | 2016-10-16 16:15 | NUR ---
ASSESSMENT RESP RATE IS IN HIGH 20'S AFTER COMPLETION OF WOUND CARE, RESP ARE LABORED. RT CALLED TO EVALUATE. 1620 PLACED BACK TO PRIOR AC SETTINGS BY RT.
--- NOTE | 2016-10-16 18:25 | NUR ---
1620 PT PLACED ON AC12 DUE TO SOB. Addendum: 10/16/16 at 1826 by Kenya Jefferson RT Amended: Links added.
--- NOTE | 2016-10-16 20:00 | NUR ---
PM Assessment Pt opened eye for tactile stimuli. Lethargic, nonverbal. Pt intubated ETT size 7.5, lip line 21cm noted. Pt on AC 12, FIo2 30%, TV 400, PEEP 5. Pt spo2 at 98% at the time. PICC noted on the right upper arm. Infusing 1/2 NS at 70ml/hr. Patent. Dressing clean, dry, and intact. Upper lobe clear breath sounds to auscultate, bilateral lower lobes diminished. martinez catheter gravity to drain, yellow, clear urine noted. G-tube noted, infusing Nutren pulmonary at 30ml/hr. Residual 5ml. Will flush every 6 hours per MD. Multiple wounds noted, Clean, dry and intact. wound care was done on the 10/15/16 by the wound care nurse. New ostomy with colostomy bag noted on the right lower abdomen, brown loose stool noted. Safety precaution in place, Bed in the lowest positioned, locked. HOB semi garcia positioned. DVT prophylactic Lovenox. Educated to use call light for assistance. Pt non verbal. Call light within reach. Will continue to monitor
[2016-10-16] MEDS ORDERED: VANCOMYCIN HCL 750 MG in NS 250 ML IV SCH (21:00)
--- NOTE | 2016-10-16 22:30 | NUR ---
Dr. Preston at bedside Assessing the pt.
[2016-10-17] VITALS (35 sets, daily range): BP systolic 95–172; BP diastolic 42–83; PULSE 77–105; RESP 18–32; TEMP 97.1–100.2; O2SAT 91–100
[2016-10-17] MEDS: INSULIN REGULAR, HUMAN 100 UNITS/ML, 10 ML VIAL (novoLIN R) SUBCUT PRN ×4 (00:43→17:54)
[2016-10-17] MEDS: LevALBUTEROL HCL 1.25 MG/0.5 ML *CONC.* VIAL.NEB (XOPENEX CONC.) INH SCH ×4 (00:50→19:20)
[2016-10-17] MEDS: IPRATROPIUM BROM 0.5 MG/2.5 ML VIAL.NEB (ATROVENT) INH SCH ×4 (00:51→19:20)
[2016-10-17] MEDS: 0.45% NS 1,000 ML IV SCH (03:16)
[2016-10-17] MEDS: MEROPENEM 500 MG in NS 50 ML IV SCH ×3 (05:30→21:42)
[2016-10-17 06:46] LABS: ANION GAP 5 (5-15); CALCIUM 8.3 mg/dL (8.4-11.0); CHLORIDE 110 mmol/L (98-107); CREATININE 0.66 mg/dL (0.55-1.30); GLUCOSE 208 mg/dL (70-99); SODIUM SERUM 141 mmol/L (136-145); UREA NITROGEN, BLOOD 21 mg/dL (8-21)
[2016-10-17 06:54] LABS: POTASSIUM 2.9 mmol/L (3.5-5.1)
[2016-10-17 07:14] LABS: HEMATOCRIT 23.3 % (36-48); HEMOGLOBIN 7.4 g/dL (12.0-16.0); MEAN CORPUSCULAR HEMOGLOBIN 26 pg (27-31); MEAN CORPUSCULAR HGB CONC 32 % (32-36); MEAN CORPUSCULAR VOLUME 82 fL (79.0-98.0); PLATELET COUNT (AUTO) 383 K/uL (130-430); RED BLOOD CELL COUNT(AUTO) 2.84 MIL/uL (4.2-6.2); RED CELL DISTRIBUTION WIDTH 18.9 % (9.0-15.0); WHITE BLOOD COUNT (AUTO) 16.2 K/uL (4.8-10.8)
[2016-10-17] MEDS ORDERED: POTASSIUM CHLORIDE 20 MEQ TAB.PRT.SR PO ONE (07:45)
[2016-10-17] MEDS ORDERED: KCL 40 mEq in 100 mL (PREMIX) 100 ML IV ONE (07:45)
--- NOTE | 2016-10-17 07:45 | NUR ---
GUALBERTO NOTES PATIENT IS AWAKE WHEN SEEN, EYES OPEN, STILL ORALLY INTUBATED TO VENT ON AC-12, VT- 400, FIO2- 30%, PEEP- 5. WITH NUTREN PULMONARY FEEDING GOING ON @ 20ML/HR VIA NASOGASTRIC TUBE. IV FLUIDS INFUSING WELL, SINUS RHYTHM ON THE MONITOR. Addendum: 10/17/16 at 1437 by Rich Harris RN FEEDING VIA GASTROSTOMY TUBE.
[2016-10-17 07:54] LABS: BLOOD GAS BASE EXCESS 1.1 mmol/L (-3.0-3.0); BLOOD GAS COHb% 0.3 % (0.5-1.5); BLOOD GAS PH 7.495 (7.350-7.450); BLOOD O2Hb% 93.4 % (94.0-97.0)
[2016-10-17 07:55] LABS: BLOOD GAS HHB 6.2 % (0.0-6.0)
[2016-10-17] MEDS: FERROUS SULFATE 300 MG/5 ML UDC GT SCH (08:53)
[2016-10-17] MEDS: HYDROCORTISONE SOD SUCC 100 MG/2 ML VIAL IVP SCH ×2 (08:53→20:29)
[2016-10-17] MEDS: DOCUSATE SODIUM 100 MG/10 ML UDC GT SCH ×2 (08:54→20:31)
[2016-10-17] MEDS: ENOXAPARIN SODIUM 30 MG/0.3 ML SYRINGE SQ SCH (08:55)
[2016-10-17] MEDS: ASCORBIC ACID 500 MG TABLET GT SCH (08:55)
[2016-10-17] MEDS: AMIODARONE HCL 200 MG TABLET GT SCH (08:56)
[2016-10-17] MEDS: FAMOTIDINE 20 MG TABLET GT SCH ×2 (08:56→20:30)
[2016-10-17] MEDS: CARBIDOPA/LEVODOPA 25/100 MG TABLET GT SCH ×3 (08:57→20:30)
[2016-10-17] MEDS: BISACODYL 10 MG/SUPPOSITORY RC SCH (08:58)
[2016-10-17] MEDS: MUPIROCIN 2% TOPICAL OINTMENT 22 GM TP SCH ×2 (08:59→20:42)
[2016-10-17] MEDS: MULTIVITS W-MIN/FERROUS GLUC 15 ML UDC GT SCH (08:59)
--- NOTE | 2016-10-17 09:00 | NUR ---
MD VISIT: DR. FILOMENA BUTT HERE TO SEE PATIENT, WITH ORDER FOR VENT SETTING CHANGES.
--- NOTE | 2016-10-17 09:05 | NUR ---
RT NOTES Vent settings changed to AC [address] Hermelindo MD was also made aware of pt's bloody secretions.
--- NOTE | 2016-10-17 09:20 | NUR ---
RN NOTES: TEMP - 100.2 COOLING MEASURES DONE, DUE MEDS FOR FEVER GIVEN. PATIENT REPOSITIONED.
[2016-10-17] MEDS: LORazepam 2 MG/ML VIAL IVP PRN (09:37)
[2016-10-17] MEDS: ACETAMINOPHEN 650 MG/20.3 ML UDC GT PRN (09:41)
[2016-10-17] MEDS: 0.45% NACL 1,000 ML IV SCH (09:42)
[2016-10-17 09:53] LABS: ATYPICAL LYMPHOCYTES % 0 % (0-0); BAND % (MANUAL) 5 % (0-6); BASOPHILS % (MANUAL) 0 % (0-2); EOSINOPHILS % (MANUAL) 0 % (0-7); LYMPHOCYTES % (MANUAL) 5 % (20-46); MONOCYTES % (MANUAL) 4 % (0-11)
--- NOTE | 2016-10-17 12:00 | NUR ---
RN NOTES: BS - 282 MG/DL 6 UNITS REGULAR INSULIN GIVEN SQ
[2016-10-17] MEDS: GENTAMICIN 100 MG/ ISO-OSM 50 ML PREMIX IV SCH (14:08)
--- NOTE | 2016-10-17 15:54 | NUR ---
RN NOTES PM CARE DONE, PATIENT REPOSITIONED FOR COMFORT. SINUS RHYTHM ON THE MONITOR.
--- NOTE | 2016-10-17 16:30 | NUR ---
RN NOTES: WOUND CARE DONE.
--- NOTE | 2016-10-17 20:00 | NUR ---
PM Shift Assessment Received patient lying in bed, lethargic with eyes closed, no acute respiratory distress noted. Assessment complete, vital signs stable. Patient noted to be intubated with settings AC 14, TV 400, FiO2 30%, PEEP 5, tolerating well. G-tube noted to abdomen, tube feeding infusing well. Colostomy noted to left abdomen, soft brown stool noted. Drew catheter noted, secured in place, draining clear yellow urine well to gravity. PICC line noted to ATLAGRACIA, IV fluids infusing well. Plan of care updated on board. Call light is within reach with soft music for comfort, Patient was repositioned and made comfortable in bed with pillow support to prevent further skin breakdown. All safety and isolation precautions in place, will continue to monitor for change in patient status.
[2016-10-17] MEDS: MORPHINE 2 MG/ML INJ. SYRINGE IVP PRN (20:16)
--- NOTE | 2016-10-17 22:00 | NUR ---
RN Rounds Patient is resting quietly in bed, no acute respiratory distress noted, tolerating vent settings well. Drew catheter is draining well to gravity, IV fluids infusing well to ALTAGRACIA PICC line. Tube feeding infusing well. Oral care provided for comfort. Patient repositioned with pillow support. All safety and isolation precautions in place. Patient unable to verbally make meeds known, will continue to monitor closely.
[2016-10-18] VITALS (36 sets, daily range): BP systolic 117–162; BP diastolic 45–85; PULSE 74–101; RESP 15–30; TEMP 97.4–98.8; O2SAT 94–100
--- NOTE | 2016-10-18 | NUR ---
RN Rounds Patient is resting quietly in bed, no acute respiratory distress noted, tolerating vent settings well. Patient lethargic, but arousable to tactile stimuli. CHG bath given, patient cleaned and repositioned with pillow support. Blood sugar was assessed and insulin provided per sliding scale. Free water flush given via G-tube, 5mL residual noted, patient tolerating feeding well. Call light is within reach with soft music for comfort. All safety and isolation precautions in place, will continue to monitor closely.
[2016-10-18] MEDS: INSULIN REGULAR, HUMAN 100 UNITS/ML, 10 ML VIAL (novoLIN R) SUBCUT PRN ×5 (00:12→23:48)
--- NOTE | 2016-10-18 02:00 | NUR ---
RN Rounds Patient is resting quietly in bed, opens eyes to tactile stimuli, no acute respiratory distress noted, tolerating vent settings well. Sinus rhythm on the monitor, HR 89-90's. No non-verbal signs of pain noted. Repositioned patient with pillow support and made comfortable in bed. All safety and isolation precautions in place, will continue to monitor closely.
[2016-10-18] MEDS: 0.45% NACL 1,000 ML IV SCH (03:15)
[2016-10-18] MEDS: LevALBUTEROL HCL 1.25 MG/0.5 ML *CONC.* VIAL.NEB (XOPENEX CONC.) INH SCH ×4 (03:44→19:40)
[2016-10-18] MEDS: IPRATROPIUM BROM 0.5 MG/2.5 ML VIAL.NEB (ATROVENT) INH SCH ×4 (03:44→19:40)
--- NOTE | 2016-10-18 04:00 | NUR ---
RN Rounds Patient is resting quietly in bed with eyes closed, opens eyes to tactile stimuli. No acute respiratory distress noted, tolerating vent settings well, O2 saturation 95%. Vital sings remain stable at this time, patient is afebrile. Oral care was provided. Patient repositioned with pillow support to prevent further skin breakdown, made comfortable in bed. All safety and isolation precautions in place, will continue to monitor closely for change in patient status.
[2016-10-18] MEDS: MEROPENEM 500 MG in NS 50 ML IV SCH ×3 (05:39→21:09)
--- NOTE | 2016-10-18 06:00 | NUR ---
RN Rounds Patient is resting quietly in bed, arousable to tactile stimuli. No acute respiratory distress noted, tolerating vent settings well. Blood sugar was assessed and insulin administered per sliding scale. RT at the bedside, suctioning provided. Patient repositioned with pillow support and made comfortable in bed. IV antibiotics infusing well to ALTAGRACIA PICC. All safety and isolation precautions in place, will continue to monitor closely.
[2016-10-18 06:37] LABS: ALANINE AMINOTRANSFERASE 23 U/L (12-78); ALBUMIN 1.7 g/dL (3.4-4.8); ANION GAP 3 (5-15); ASPARTATE AMINOTRANSFERASE 37 U/L (10-37); CALCIUM 8.3 mg/dL (8.4-11.0); CHLORIDE 108 mmol/L (98-107); CREATININE 0.58 mg/dL (0.55-1.30); GLUCOSE 249 mg/dL (70-99); POTASSIUM 3.1 mmol/L (3.5-5.1); SODIUM SERUM 141 mmol/L (136-145); TOTAL BILIRUBIN 0.3 mg/dL (0.0-1.0); TOTAL PROTEIN, SERUM 6.7 g/dL (6.4-8.3); UREA NITROGEN, BLOOD 19 mg/dL (8-21)
[2016-10-18 06:52] LABS: BASOPHILS # (AUTO) 0.1 K/uL (0.0-0.2); BASOPHILS % (AUTO) 0.4 % (0.0-2.0); EOSINOPHILS # (AUTO) 0.1 K/uL (0.0-0.4); EOSINOPHILS % (AUTO) 0.3 % (0.0-4.0); HEMATOCRIT 25.2 % (36-48); HEMOGLOBIN 7.9 g/dL (12.0-16.0); LYMPHOCYTES # (AUTO) 1.3 K/uL (1.0-5.5); LYMPHOCYTES % (AUTO) 7.6 % (20.5-51.5); MEAN CORPUSCULAR HEMOGLOBIN 26 pg (27-31); MEAN CORPUSCULAR HGB CONC 31 % (32-36); MEAN CORPUSCULAR VOLUME 82 fL (79.0-98.0); MONOCYTES # (AUTO) 0.7 K/uL (0.0-1.0); MONOCYTES % (AUTO) 3.9 % (1.7-9.3); NEUTROPHILS # (AUTO) 14.6 K/uL (1.8-7.7); NEUTROPHILS % (AUTO) 87.8 % (40.0-70.0); PLATELET COUNT (AUTO) 358 K/uL (130-430); RED BLOOD CELL COUNT(AUTO) 3.08 MIL/uL (4.2-6.2); RED CELL DISTRIBUTION WIDTH 18.4 % (9.0-15.0); WHITE BLOOD COUNT (AUTO) 16.8 K/uL (4.8-10.8)
--- NOTE | 2016-10-18 07:00 | NUR ---
Closing Notes-Patient Resting Patient is resting quietly in bed, no acute respiratory distress noted. Patient is stable, all needs met throughout shift. SBAR report endorsed to AM nurse.
--- NOTE | 2016-10-18 07:20 | NUR ---
INITIAL NOTES RECEIVED PATIENT ON BED ASLEEP;OPENS EYES WITH LIGHT STIMULI.BREATHING EVEN AND UNLABORED WITH ETT INTACT AND PATENT ATTACHED TO VENTILATOR MACHINE;TOLERATING SETTINGS WELL.GTF RUNNING AT 40 ML/HR;TOLERATING WELL.IVF INFUSING AT 40 ML/HR;TOLERATING WELL.ROTH CATHETER INTACT AND PATENT DRAINING CLEAR YELLOW URINE.SAFETY AND FALL PRECAUTIONS IN PLACE.CALL LIGHT WITHIN REACH
[2016-10-18 08:07] LABS: ABG TOTAL HEMOGLOBIN 8.5 G/dL (12.0-18.0); BLOOD GAS BASE EXCESS 5.9 mmol/L (-3.0-3.0); BLOOD GAS COHb% 0.4 % (0.5-1.5); BLOOD GAS HHB 4.7 % (0.0-6.0); BLOOD GAS PH 7.524 (7.350-7.450); BLOOD O2Hb% 94.6 % (94.0-97.0)
[2016-10-18] MEDS: MULTIVITS W-MIN/FERROUS GLUC 15 ML UDC GT SCH (08:11)
[2016-10-18] MEDS: FERROUS SULFATE 300 MG/5 ML UDC GT SCH (08:12)
[2016-10-18] MEDS: AMIODARONE HCL 200 MG TABLET GT SCH (08:12)
[2016-10-18] MEDS: ASCORBIC ACID 500 MG TABLET GT SCH (08:13)
[2016-10-18] MEDS: FAMOTIDINE 20 MG TABLET GT SCH ×2 (08:13→21:06)
[2016-10-18] MEDS: CARBIDOPA/LEVODOPA 25/100 MG TABLET GT SCH ×3 (08:13→21:06)
[2016-10-18] MEDS: MUPIROCIN 2% TOPICAL OINTMENT 22 GM TP SCH ×2 (08:13→21:08)
[2016-10-18] MEDS: ENOXAPARIN SODIUM 30 MG/0.3 ML SYRINGE SQ SCH (08:13)
[2016-10-18] MEDS: HYDROCORTISONE SOD SUCC 100 MG/2 ML VIAL IVP SCH ×2 (08:17→21:06)
--- NOTE | 2016-10-18 08:30 | NUR ---
DR. WEBBIUM HERE TO SEE PATIENT.
[2016-10-18] MEDS: DOCUSATE SODIUM 100 MG/10 ML UDC GT SCH ×2 (08:40→21:00)
[2016-10-18] MEDS: BISACODYL 10 MG/SUPPOSITORY RC SCH (08:40)
[2016-10-18] MEDS: POTASSIUM CHLORIDE 20 MEQ/PKT PACKET GT SCH ×3 (09:00→21:05)
--- NOTE | 2016-10-18 11:10 | NUR ---
DR. BAILEY HERE TO SEE PATIENT. MADE AWARE OF PT MICRO/CULTURE AND SENSITIVITY RESULT.
[2016-10-18] MEDS: GENTAMICIN 100 MG/ ISO-OSM 50 ML PREMIX IV SCH (12:17)
[2016-10-18] MEDS: BALSAM PERU/CASTOR OIL 60 GM OINT...G. TP SCH (14:00)
--- NOTE | 2016-10-18 14:30 | NUR ---
WOUND CARE TREATMENT DONE WITH THE WOUND SPRING INSPECTOR NURSE;TOLERATED WELL
--- NOTE | 2016-10-18 14:30 | NUR ---
Wound Re-Evaluation: Patient received in an ICU [facility] bed on a low air-loss mattress, awake, non-verbal, non-responsive to verbal cues. Skin is poor. Endotracheal Sputum Culture results: Peudomonas Aeruginosa (MDRO, ACCESS DIRECTOR), Klebsiella Pneumoniae (ESBL, MDRO), MRSA Colonization. Intrinsic Factors that delay wound healing: Diabetes Mellitus, Anemia. Extrinsic factors that decrease wound healing: immobility, very limited turning areas available. Sacral, Coccygeal, and buttocks areas have scar tissue. Wound Assessment: 1) Left Hip: Unstageable Pressure Ulcer, present on admission. Wound bed is 50% pink tissue, 45% yellow tissue, 5% red tissue. No odor, scant sanguineous drainage. Colt-wound and surrounding tissue has scar tissue. Measures 6.5 cm x 6.0 cm x 2.0 cm. Undermining present from 8-2 o'clock, at 10 o'clock. Recommend continue: Cleanse wound with normal saline. Pat dry. Put moisture barrier cream onto colt-wound. Put Venelex ointment onto wound bed. Place 2.2 inch tender wet dressing into wound cavity. Cover with foam dressings, then transparent dressings. Perform wound care daily and as needed for dressing soiling or dislodgment. 2) Right Lateral Buttock: Prior Stage 4 Pressure Ulcer, present on admission. 65% yellow tissue, 35% pink tissue. No odor, scant serous drainage. White colt-wound. Measures 5.2 cm x 1.0 cm x 0.5 cm. 3) Right Buttock, Medial to Wound 2): Unstageable Pressure Ulcer, present on admission. 50% yellow tissue, 50% pink tissue. No odor, no drainage. White colt-wound. Measures 1.5 cm x 1.6 cm x 0.3 cm. Undermining present from 7-10 o'clock, deepest 0.4 cm at 9 o'clock. Recommend continue: Cleanse wounds with normal saline. Pat dry. Put moisture barrier cream onto colt-wounds. Put Venelex ointment onto wound beds. Cover with foam dressings, then transparent dressings. Perform wound care daily and as needed for dressing soiling or dislodgment. 4) Right Buttock, Medial to Wound 2): Area of non-intact skin, medial to Wound 3), present on admission. 100% red tissue. No odor, no drainage. White colt-wound. Recommend continue: Cleanse wound with normal saline. Pat dry. Put moisture barrier cream onto wound and colt-wound. Put Venelex ointment onto any portion of wound not covered by moisture barrier cream. Cover with foam dressing, then transparent dressings. Perform wound care daily and as needed for dressing soiling or dislodgment. 5) Left Buttock near Ischium: Scar tissue, present on admission. [place] and red discoloration. No odor, no drainage. 6) Coccygeal area: 100% brown eschar. No odor, no drainage. Periwound intact. Recommend: Cover with foam dressing for protection. Change dressing daily, and as needed for dressing soiling or dislodgment. 7) Left Lateral Malleolus: Unstageable Pressure Ulcer, present on admission. 70% yellow tissue, 30% pink tissue. No odor, no drainage. White colt-wound. Measures 1.5 cm x 1.5 cm. Recommend continue: Cleanse wound with normal saline. Put moisture barrier cream onto colt-wound. Put Venelex ointment onto wound bed. Cover with foam dressing. Perform wound care daily and as needed for dressing soiling or dislodgment. 8) Left Medial Great Toe: Blanchable redness, present on admission. No odor, no drainage. 9) Left foot, 1st metatarsal head: Blanchable redness, present on admission. No odor, no drainage. Recommend continue: Cover with foam dressing for protection. Change dressing daily, and as needed for dressing soiling or dislodgment. Elevate, offload and float bilateral feet and heels with pillows at all times. Also recommend continue: Reposition patient side to side only every two hours with pillow support, off-load heels in bilateral heel boots, off-load pressure areas with pillows for pressure re-distribution. Do not place patient flat on her back. Perform skin care and monitor skin integrity q shift. Use moisture barrier cream on moisture susceptible areas qid and prn for soiling. Elevate, offload, and float bilateral heels with Heelift Boots. Maintain patient on a Low Air-Loss Mattress. Addendum: 10/18/16 at 1730 by Lincoln Gaspar RN After reviewing history, site 5) was scar tissue from a previously healed wound of unknown etiology. Area is reopening secondary to tissue weakness and co-morbidities.
--- NOTE | 2016-10-18 15:20 | NUR ---
Nutrition F/U Admitting Diagnosis Septic shock, acute respiratory failure, UTI, ARF, severe malnutrition Reviewed Pertinent Medical/Surgical Hx Patient Primary puddler helper RN Medical Record Medical History Comment: Parkinson Dz, dementia, stage 4 decubitus ulcer of coccyx, DM, severe malnutrition, chronic anemia, GT placement, diverting colostomy per MD notes Subjective Information Pt seen resting in bed, +obtunded, +intubated to vent, at time of RD visit. TF seen infusing at 40 ml/hr; 348 ml infused, providing 522 kcal. Per charge master specialist, pt's TF was increased by Dr. Casarez via JAKE Additional orders. She also noted pt's elevated BG values. RN also reported that pt is now on SIMV mode, and may possibly have trach placement. RD s/w Dr. Teran at [facility] nursing station, and he was agreeable w/ RD rec to modify pt's TF to Diabetisource at 40 ml/hr w/ Prosource TID and Free Water Flush: 100 ml Q6h via GT. Per EMR, TF Intakes: 400 ml 10/18/16. Residuals: 5 ml 10/18/16. Abd is soft and non-distended w/ active bowel sounds. Output (stool): 700 ml 10/18/16. I/O: 320/345 (-25 ml) per 12 hours. Current TF regimen (at 40 ml/hr) provides 1620 kcal/day, 110 gm protein/day, and 1151 ml free water/day. This meets 140% of estimated caloric needs and meets 115% of upper end of estimated protein needs. Pt would most benefit from diabetic-friendly formula to help improve BG levels. Pt is not appropriate for nutrition education. Current Diet Order/Nutrition Support Nutren Pulmonary at 20 ml/hr, Prosource TID, Free Water Flush: 100 via GT Patient/Significant Other Unable To Verbalize Education Provided Not Indicated Pertinent Medications solu-cortef, morphine, gentamicin/NaCl IV, ferrous gluconate, VIT C, pepcid, colace, SSI, zinc sulfate, fleet enema, MOM, dulcolax suppository Pertinent Labs WBC 16.8H, BG 249 H, POC BG 248 H, ALB 1.7 L, BNP 1030 H Height (Feet) 5 feet Height (Inches) 3.00 inches Weight (Pounds) 106 pounds (admission) [facility]: 112.5 lb, 51 kg (10/18/16) -- note that pt is on an air mattress Weight (Calculated Kilograms) 48.442762 kilograms Patient Weight 48.081 kg Body Mass Index 18.77 kg/m2 %IBW 92 [place]/Adjusted Body Weight IBW: 116 lb, 52 kg Recent Weight Change Unknown Last BM Oct 18, 2016 Food Allergies Unknown Usual Diet At Home Oc Maier: Glucerna 1.2 at 55 cc/hr x20 hours, ProStat BID Skin Integrity Comment: Abdulkadir scale: 11; per Sales Advisory Manager note 10/16/16: skin is poor. 1) Left Hip: Unstageable Pressure Ulcer, present on admission. 2) Right Lateral Buttock: Prior Stage 4 Pressure Ulcer, present on admission. 3) Right Buttock, Medial to Wound 2): Unstageable Pressure Ulcer, present on admission. 4) Right Buttock, Medial to Wound 2): Area of non-intact skin, medial to Wound 3), present on admission. 5) Left Buttock near Ischium: Scar tissue, present on admission. No odor, no drainage. 6) Coccygeal area: 100% brown eschar. No odor, no drainage. Periwound intact. Measures 0.7 cm X 0.5 cm. 7) Left Medial Great Toe: Blanchable redness, present on admission. No odor, no drainage. 8) left foot metatarsal head: Blanchable redness, Estimated Energy Expenditure (kcals/day) 1160 kcal/day (PSU 2003b for critical illness, vent support) Estimated Protein Required (g/day) 72-96 gm/day (1.5-2 gm/kg CBW for sepsis, wound healing) Estimated Fluid Required (l/day) 1.4 L/day (30 ml/kg CBW for geriatric maintenance) Problem/Etiology/Signs/Symptoms Inadequate nutritional intakes related to increased nutritional needs for metabolic demands as evidenced by no currently infusing nutrition support to meet estimated nutritional requirements. *resolved Altered nutrition-related labs related to endocrine dysfunction as evidenced by elevated BG and POC BG labs. Expected Outcomes/Goals - Monitor provision of EN w/ goal of pt meeting at least 50% of estimated nutritional needs, labs trending WNL, normal GI function, and skin integrity/wt maintenance Dietitian Recommendations * Recommend Diabetisource AC at 40 ml/hr, Prosource TID, Free Water Flush: 100 ml Q6h via GT Provides: 1332 kcal/day, 103 gm protein/day, and 1183 ml free water/day Meets: 114% of estimated caloric needs and 107% of upper end of estimated protein needs Follow Up High Risk: F/U in 2-3 days
--- NOTE | 2016-10-18 15:30 | NUR ---
RT NOTES Vent settings to SIMV [address] Casarez's order. Pt. was observed for 5 minutes, pt did not show any respiratory distress. Vitals before changes H.R. 83 R.R 21 SPO2 96%. @ 1535 Vitals on SIMV: H.R 87 R.R 27 SPO2 96%. Will cont. to monitor pt.
--- NOTE | 2016-10-18 16:15 | NUR ---
PATIENT ON BED AWAKE;NO SIGNS AND SYMPTOMS OF ACUTE DISTRESS
--- NOTE | 2016-10-18 18:52 | NUR ---
PATIENT ON BED ASLEEP.BREATHING EVEN AND UNLABORED;TOLERATING VENTILATOR SETTINGS WELL.NO SIGNS AND SYMPTOMS OF ACUTE DISTRESS.IVF INFUSING WELL;NO SIGNS AND SYMPTOMS OF INFILTRATION.GTF INFUSING WELL;TOLERATING WELL.ROTH CATHETER INTACT AND PATENT.SAFETY AND FALL PRECAUTIONS IN PLACE.KEPT ON CONTACT ISOLATION PRECAUTIONS STRICTLY OBSERVED.WILL ENDORSE TO NEXT SHIFT ACCORDINGLY
--- NOTE | 2016-10-18 19:30 | NUR ---
Received report from Pamela Wang RN using SBAR. Patient obtunded. Unable to follow command. Orally intubated to the ventilator. V/S stable. No distress noted.
[2016-10-18] MEDS: COLISTIMETHATE SODIUM 150 MG VIAL INH SCH (21:00)
[2016-10-19] VITALS (35 sets, daily range): BP systolic 126–166; BP diastolic 40–69; PULSE 82–99; RESP 14–29; TEMP 97.7–99; O2SAT 93–100
--- NOTE | 2016-10-19 | NUR ---
Condition unchanged. Remains intubated. Oral care rendered. No distress noted.
[2016-10-19] MEDS: IPRATROPIUM BROM 0.5 MG/2.5 ML VIAL.NEB (ATROVENT) INH SCH ×4 (01:00→20:09)
[2016-10-19] MEDS: LevALBUTEROL HCL 1.25 MG/0.5 ML *CONC.* VIAL.NEB (XOPENEX CONC.) INH SCH ×4 (01:00→20:09)
--- NOTE | 2016-10-19 04:30 | NUR ---
CHG bath done. Tolerated well without distress noted. Condition unchanged.
[2016-10-19] MEDS: INSULIN REGULAR, HUMAN 100 UNITS/ML, 10 ML VIAL (novoLIN R) SUBCUT PRN ×3 (05:45→18:08)
[2016-10-19] MEDS: MEROPENEM 500 MG in NS 50 ML IV SCH ×3 (05:47→21:43)
[2016-10-19 06:59] LABS: ANION GAP 1 (5-15); CALCIUM 7.6 mg/dL (8.4-11.0); CHLORIDE 102 mmol/L (98-107); CREATININE 0.57 mg/dL (0.55-1.30); GLUCOSE 260 mg/dL (70-99); PHOSPHORUS 2.4 mg/dL (2.7-4.5); SODIUM SERUM 138 mmol/L (136-145); UREA NITROGEN, BLOOD 15 mg/dL (8-21)
[2016-10-19 07:04] LABS: POTASSIUM 2.8 mmol/L (3.5-5.1)
[2016-10-19 07:12] LABS: HEMOGLOBIN 7.9 g/dL (12.0-16.0); MEAN CORPUSCULAR HEMOGLOBIN 26 pg (27-31); MEAN CORPUSCULAR HGB CONC 32 % (32-36); MEAN CORPUSCULAR VOLUME 82 fL (79.0-98.0); PLATELET COUNT (AUTO) 336 K/uL (130-430); RED BLOOD CELL COUNT(AUTO) 3.04 MIL/uL (4.2-6.2); RED CELL DISTRIBUTION WIDTH 18.4 % (9.0-15.0)
--- NOTE | 2016-10-19 07:30 | NUR ---
AM ROUNDS RECEIVED PT UP IN BED. AWAKE, NONVERBAL, TRACKS WITH EYES- RESPONDS TO NAME. BREATHING IS EVEN AND UNLABORED ON MECH VENT. ETT IS 21CM AT LIPLINE. S1, S2 NOTED. LUNGS CTA. BOWEL SOUNDS X4. GT TO MID UPPER ABDOMEN WTIH GTF RUNNING AT 40/HR. F/C DRAINING CLEAR YELLOW URINE TO GRAVITY. MULTIPLE WDS TO B/L FEET AND SACRUM. RT HAND IS CONTRACTED. BLE CONTRACTED. FULL ASSESSMENT COMPLETED, VSS. WILL MONITOR CLOSELY SINCE PT IS UNABLE TO PERFORM RD OF CALL LIGHT. CONTACT ISOLATION PRECAUTIONS OBSERVED.
[2016-10-19 07:39] LABS: WHITE BLOOD COUNT (AUTO) 11.8 K/uL (4.8-10.8)
[2016-10-19 08:21] LABS: ABG TOTAL HEMOGLOBIN 8.7 G/dL (12.0-18.0); BLOOD GAS BASE EXCESS 11.1 mmol/L (-3.0-3.0); BLOOD GAS COHb% 0.4 % (0.5-1.5); BLOOD GAS HHB 6.3 % (0.0-6.0); BLOOD GAS PH 7.552 (7.350-7.450); BLOOD O2Hb% 92.8 % (94.0-97.0)
[2016-10-19] MEDS: 0.45% NACL 1,000 ML IV SCH (08:32)
[2016-10-19] MEDS: AMIODARONE HCL 200 MG TABLET GT SCH (08:43)
[2016-10-19] MEDS: FAMOTIDINE 20 MG TABLET GT SCH ×2 (08:43→21:40)
[2016-10-19] MEDS: ASCORBIC ACID 500 MG TABLET GT SCH (08:43)
[2016-10-19] MEDS: CARBIDOPA/LEVODOPA 25/100 MG TABLET GT SCH ×3 (08:43→21:40)
[2016-10-19] MEDS: POTASSIUM CHLORIDE 20 MEQ/PKT PACKET GT SCH ×2 (08:44→21:39)
[2016-10-19] MEDS: MUPIROCIN 2% TOPICAL OINTMENT 22 GM TP SCH ×2 (08:45→21:42)
[2016-10-19] MEDS: FERROUS SULFATE 300 MG/5 ML UDC GT SCH (08:45)
[2016-10-19] MEDS: HYDROCORTISONE SOD SUCC 100 MG/2 ML VIAL IVP SCH ×2 (08:46→21:41)
[2016-10-19] MEDS: ENOXAPARIN SODIUM 30 MG/0.3 ML SYRINGE SQ SCH (08:46)
[2016-10-19] MEDS: DOCUSATE SODIUM 100 MG/10 ML UDC GT SCH ×2 (08:47→21:38)
[2016-10-19] MEDS: MULTIVITS W-MIN/FERROUS GLUC 15 ML UDC GT SCH (08:47)
[2016-10-19] MEDS: BISACODYL 10 MG/SUPPOSITORY RC SCH (08:47)
--- NOTE | 2016-10-19 08:50 | NUR ---
RN R0UNDS ADMIN AM MEDS WITH APU STUDENT, SILVER. PT SHANTI MEDS WELL.
[2016-10-19] MEDS: BALSAM PERU/CASTOR OIL 60 GM OINT...G. TP SCH (09:00)
[2016-10-19] MEDS: COLISTIMETHATE SODIUM 150 MG VIAL INH SCH ×2 (09:00→21:00)
[2016-10-19] MEDS ORDERED: MAGNESIUM SULFATE 50 ML IV ONE (09:00)
[2016-10-19] MEDS ORDERED: KCL 40 mEq in 100 mL (PREMIX) 100 ML IV ONE (09:00)
[2016-10-19 09:24] LABS: ATYPICAL LYMPHOCYTES % 0 % (0-0); BAND % (MANUAL) 3 % (0-6); BASOPHILS % (MANUAL) 0 % (0-2); EOSINOPHILS % (MANUAL) 1 % (0-7); LYMPHOCYTES % (MANUAL) 12 % (20-46); MONOCYTES % (MANUAL) 8 % (0-11)
--- NOTE | 2016-10-19 12:00 | NUR ---
RN ROUNDS BS ASSESSED. WILL ADMIN INSULIN PER S/S. ORAL CARE PROVIDED. PT SHANTI WELL
--- NOTE | 2016-10-19 12:15 | NUR ---
INDUSTRIAL ENGINEERING NOTE: Pt referred by Wet Pan Operator for ICU/ high risk assessment. According to pt's chart, pt is a 81 year old female admitted with the diagnosis of Septic Shock, Acute Respiratory Failure; [facility]; pt's Conservator is Geeta Snider ([phone]); pt has a history of Parkinson Disease, Dementia, Stage 4 Decubitus Ulcer of Coccyx, Diabetes Mellitus, Severe Malnutrition, and Chronic Anemia. FITNESS AND WELLNESS COORDINATOR observed pt at bedside. Due to pt being on a vent/non-verbal, FITNESS AND WELLNESS COORDINATOR unable to communicate with pt at this time. Pt appears to be resting comfortably with all needs met at this time. FITNESS AND WELLNESS COORDINATOR spoke with pt's Nurse, Hayley. Pt's Nurse states that there are no Social Service concerns at this time. Wet Pan Operator will continue to remain available and follow up as needed.
[2016-10-19] MEDS: GENTAMICIN 100 MG/ ISO-OSM 50 ML PREMIX IV SCH (13:06)
--- NOTE | 2016-10-19 14:15 | NUR ---
RN ROUNDS ADMIN AFTERNOON MEDS, INCLUDING IVATB. NO ADVERSE REACTIONS NOTED. PT SHANTI WELL
--- NOTE | 2016-10-19 16:00 | NUR ---
WD CARE WD CARE PROVIDED. PT SHANTI WELL. COLOSTOMY CHANGED. ORAL CARE AND ENDOTRACHEAL SUCTIONING PROVIDED. REPOSITIONED PT, SUPPORTED WITH PILLOWS. ISOLATION PRECAUTIONS OBSERVED.
--- NOTE | 2016-10-19 18:33 | NUR ---
CLOSING NOTE PT RESTING IN BED. ALL NEEDS MET. HOURLY AND PRN ROUNDS OBSERVED. WILL ENDORSE REPORT TO NOC SHIFT NURSE.
--- NOTE | 2016-10-19 20:00 | NUR ---
pt.assessed.pt.presents ventilator status.the settings corresponding to the pt's end shift report and the dr's recent orders:pt.presents simv status.pt.presents et-tube.size:7.5cm lip-line: 21.pt.presents picc -line:in fluids infusing.g-tube assessed.diabetic source:rate:40ml/hr. pt.presents martinez catheter patent.catheter lock in place.pt.suctioned.oral care provided. call light placed w/in pt's reach. Addendum: 10/20/16 at 0440 by Toni Silverman RN colostomy bag attended to:contents emptied.
--- NOTE | 2016-10-19 21:30 | NUR ---
the 2100p medications have been administered via the g-tube.i have cleaned and changed the picc line;central line:rt raquel.call light within the pt.'s reach.
[2016-10-20] VITALS (37 sets, daily range): BP systolic 114–147; BP diastolic 47–74; PULSE 76–98; RESP 17–28; TEMP 97.3–98.4; O2SAT 93–100
--- NOTE | 2016-10-20 | NUR ---
pt.assessed.the blood glucose assessed:197mg/dl.2 units regular insulin administered per the sliding scale:migel lutz,apprised of the blood glucose value:and has co-signed the regular insulin coverage.oral care attended to.g-tube residual assessed;10ml.oral suctioned attended to.pt.repositioned.ventilator settings assessed:pt.response w/in normal limits. call light palced w/in pt's reach. Addendum: 10/20/16 at 0440 by Toni Silverman RN colostomy bag attended to:contents emptied.
[2016-10-20] MEDS: LevALBUTEROL HCL 1.25 MG/0.5 ML *CONC.* VIAL.NEB (XOPENEX CONC.) INH SCH ×4 (00:29→19:45)
[2016-10-20] MEDS: IPRATROPIUM BROM 0.5 MG/2.5 ML VIAL.NEB (ATROVENT) INH SCH ×4 (00:29→19:45)
[2016-10-20] MEDS: INSULIN REGULAR, HUMAN 100 UNITS/ML, 10 ML VIAL (novoLIN R) SUBCUT PRN ×4 (00:37→23:57)
--- NOTE | 2016-10-20 01:15 | NUR ---
i have cleaned the g-tube site and changed the g-tube dressing.
--- NOTE | 2016-10-20 04:00 | NUR ---
pt.assessed.v/s assessed:values within normal limits.ventilator settings reviewed. pt.tolerating vent settings.i have attended to oral care/suction.i have attended to colostomy bag contents emptied.ett tube placement 7.5 cm size:21 at lipline. g-tube residual noted 20ml.call light placed w/in pt's reach.
--- NOTE | 2016-10-20 05:39 | NUR ---
pt.cleaned.chg bath attended to.holly-valve changed.
[2016-10-20 06:25] LABS: BASOPHILS % (AUTO) 0.1 % (0.0-2.0); HEMOGLOBIN 8.1 g/dL (12.0-16.0); LYMPHOCYTES # (AUTO) 1.2 K/uL (1.0-5.5)
[2016-10-20 06:40] LABS: ANION GAP 4 (5-15); CALCIUM 8.1 mg/dL (8.4-11.0); CHLORIDE 100 mmol/L (98-107); GLUCOSE 331 mg/dL (70-99); POTASSIUM 3.5 mmol/L (3.5-5.1); SODIUM SERUM 137 mmol/L (136-145); UREA NITROGEN, BLOOD 20 mg/dL (8-21)
[2016-10-20 06:44] LABS: EOSINOPHILS % (AUTO) 0.3 % (0.0-4.0); HEMATOCRIT 25.2 % (36-48); LYMPHOCYTES % (AUTO) 10.4 % (20.5-51.5); MEAN CORPUSCULAR HEMOGLOBIN 27 pg (27-31); MEAN CORPUSCULAR HGB CONC 32 % (32-36); MEAN CORPUSCULAR VOLUME 83 fL (79.0-98.0); MONOCYTES # (AUTO) 0.6 K/uL (0.0-1.0); MONOCYTES % (AUTO) 5.6 % (1.7-9.3); NEUTROPHILS # (AUTO) 9.5 K/uL (1.8-7.7); NEUTROPHILS % (AUTO) 83.6 % (40.0-70.0); PLATELET COUNT (AUTO) 405 K/uL (130-430); RED BLOOD CELL COUNT(AUTO) 3.06 MIL/uL (4.2-6.2); RED CELL DISTRIBUTION WIDTH 18.5 % (9.0-15.0); WHITE BLOOD COUNT (AUTO) 11.3 K/uL (4.8-10.8)
--- NOTE | 2016-10-20 07:30 | NUR ---
AM Assessment Received Pt awake, alert, eyes open. Pt unable to follow commands and verbalized needs. Pt withdraws to painful stimuli. PERRLA noted. Pt is currently intubated. ETT size 7.5 noted @21 cm lip line. Pt breathing ETT to vent. Vent settings SIMV 6, TV 400, FiO2 30%, PEEP 5, PS 10. Pt tolerating vent settings. Lung sounds clears throughout all lobes. O2 sat @98%. Abd auscultated, bowel sounds noted throughout all lobes. Abd soft and non distended. Colostomy bag noted left abd. Stoma is beefy red. Colostomy bag intact. Multi wounds noted left and right hips, buttocks, and right ankle. Dressing is clean, dry and intact. G-tube noted. G-tube flush and patent. No residual noted. IV access noted ALTAGRACIA double lumen PICC line. Both ports patent and flushed. Drew cath noted. Drew cath draining clear yellow urine. Drew cath secure device noted. Pt is on isolation precaution for MRSA, MDRO, and ESBL. Assessment done, plan of care discussed with Pt, call light within easy reach. bed at lowest position, will continue to monitor. Addendum: 10/24/16 at 0817 by Leona Beck RN Data entered in error. Bowel sounds noted throughout all quadrant.
[2016-10-20 07:53] LABS: ABG TOTAL HEMOGLOBIN 9.2 G/dL (12.0-18.0); BLOOD GAS COHb% 0.5 % (0.5-1.5); BLOOD GAS PH 7.515 (7.350-7.450); BLOOD O2Hb% 94.9 % (94.0-97.0)
[2016-10-20] MEDS: CARBIDOPA/LEVODOPA 25/100 MG TABLET GT SCH ×3 (09:26→20:17)
[2016-10-20] MEDS: 0.45% NACL 1,000 ML IV SCH (09:26)
[2016-10-20] MEDS: HYDROCORTISONE SOD SUCC 100 MG/2 ML VIAL IVP SCH ×2 (09:27→20:15)
[2016-10-20] MEDS: DOCUSATE SODIUM 100 MG/10 ML UDC GT SCH ×2 (09:28→20:15)
[2016-10-20] MEDS: FERROUS SULFATE 300 MG/5 ML UDC GT SCH (09:31)
[2016-10-20] MEDS: FAMOTIDINE 20 MG TABLET GT SCH ×2 (09:32→20:15)
[2016-10-20] MEDS: MULTIVITS W-MIN/FERROUS GLUC 15 ML UDC GT SCH (09:32)
[2016-10-20] MEDS: ASCORBIC ACID 500 MG TABLET GT SCH (09:32)
[2016-10-20] MEDS: POTASSIUM CHLORIDE 20 MEQ/PKT PACKET GT SCH ×2 (09:32→20:14)
[2016-10-20] MEDS: AMIODARONE HCL 200 MG TABLET GT SCH (09:32)
[2016-10-20] MEDS: MUPIROCIN 2% TOPICAL OINTMENT 22 GM TP SCH ×2 (09:33→20:16)
[2016-10-20] MEDS: BALSAM PERU/CASTOR OIL 60 GM OINT...G. TP SCH (09:34)
[2016-10-20] MEDS: BISACODYL 10 MG/SUPPOSITORY RC SCH (09:36)
[2016-10-20] MEDS: ENOXAPARIN SODIUM 30 MG/0.3 ML SYRINGE SQ SCH (09:36)
[2016-10-20] MEDS: COLISTIMETHATE SODIUM 150 MG VIAL INH SCH ×2 (10:14→20:02)
--- NOTE | 2016-10-20 11:30 | NUR ---
Nutrition F/U Admitting Diagnosis Septic shock, acute respiratory failure, UTI, ARF, severe malnutrition Reviewed Pertinent Medical/Surgical Hx Patient Primary RN Medical Record Medical History Comment: Parkinson Dz, dementia, stage 4 decubitus ulcer of coccyx, DM, severe malnutrition, chronic anemia, GT placement, diverting colostomy per MD notes Subjective Information Pt seen resting in bed, +obtunded, +intubated to vent (SIMV mode), at time of RD visit. RD reported that pt has been tolerating TF well, no residuals. She also reported that pt is slowly being weaned off vent support. RN stated that pt received Prosource x1 this morning, and will receive second Prosource at noon. Per EMR, TF Intakes: 400 ml 10/20/16. Residuals: 30 ml 10/20/16. Abd is soft w/ active bowel sounds. Output (stool): 350 ml 10/20/16. I/O: 320/250 (+70 ml) per 12 hours. Current TF regimen remains appropriate. Pt is not appropriate for nutrition education. Current Diet Order/Nutrition Support Diabetisource AC at 40 ml/hr, Prosource TID, Free Water Flush: 100 ml Q6h via GT Patient/Significant Other Unable To Verbalize Education Provided Not Indicated Pertinent Medications solu-cortef, morphine, gentamicin/NaCl IV, ferrous gluconate, VIT C, pepcid, colace, SSI, zinc sulfate, fleet enema, MOM, dulcolax suppository Pertinent Labs WBC 11.3 H, BG 331 H, POC BG 294 H, ALB 1.7 L (10/18/16), BNP 847 H (10/20/16) *note elevated BG levels; pt is on steroids Height (Feet) 5 feet Height (Inches) 3.00 inches Weight (Pounds) 106 pounds (admission) BEDSCALE WT: 112.5 lb, 51 kg (10/18/16); 109 lb, 50 kg (10/20/16) -- note that pt is on an air mattress Weight (Calculated Kilograms) 48.290403 kilograms Patient Weight 48.081 kg Body Mass Index 18.77 kg/m2 %IBW 92 [place]/Adjusted Body Weight IBW: 116 lb, 52 kg Recent Weight Change Unknown Last BM Oct 20, 2016 Food Allergies Unknown Usual Diet At Home Oc Maier: Glucerna 1.2 at 55 cc/hr x20 hours, ProStat BID Skin Integrity Comment: Abdulkadir scale: 11; per Marketing Automation Analyst note 10/18/16: skin is poor. 1) Left Hip: Unstageable Pressure Ulcer, present on admission. 2) Right Lateral Buttock: Prior Stage 4 Pressure Ulcer, present on admission. 3) Right Buttock, Medial to Wound 2): Unstageable Pressure Ulcer, present on admission. 4) Right Buttock, Medial to Wound 2): Area of non-intact skin, medial to Wound 3), present on admission. 5) Left Buttock near Ischium: Scar tissue, present on admission. 6) Coccygeal area: 100% brown eschar. No odor, no drainage. Periwound intact. 7) Left Lateral Malleolus: Unstageable Pressure Ulcer, present on admission. 8) Left Medial Great Toe: Blanchable redness, present on admission. No odor, no drainage. 9) Left foot, 1st metatarsal head: Blanchable redness, present on admission. Estimated Energy Expenditure (kcals/day) 1160 kcal/day (PSU 2003b for critical illness, vent support) Estimated Protein Required (g/day) 72-96 gm/day (1.5-2 gm/kg CBW for sepsis, wound healing) Estimated Fluid Required (l/day) 1.4 L/day (30 ml/kg CBW for geriatric maintenance) Problem/Etiology/Signs/Symptoms Inadequate nutritional intakes related to increased nutritional needs for metabolic demands as evidenced by no currently infusing nutrition support to meet estimated nutritional requirements. *resolved Altered nutrition-related labs related to endocrine dysfunction as evidenced by elevated BG and POC BG labs. *ongoing Expected Outcomes/Goals - Monitor provision of EN w/ goal of pt meeting at least 50% of estimated nutritional needs, labs trending WNL, normal GI function, and skin integrity/wt maintenance Dietitian Recommendations * Recommend continuing Diabetisource AC at 40 ml/hr, Prosource TID, Free Water Flush: 100 ml Q6h via GT Provides: 1332 kcal/day, 103 gm protein/day, and 1183 ml free water/day Meets: 114% of estimated caloric needs and 107% of upper end of estimated protein needs Follow Up High Risk: F/U in 2-3 days
--- NOTE | 2016-10-20 12:54 | NUR ---
Pt awake, eyes open. Pt unable to follow commands and verbalized needs. Pt withdraws to painful stimuli. Pt tolerating vent settings. Lung sounds clears throughout all lobes. Dr. Casarez at the bedside discussing plan of care. Tube feeding and IVF still infusing. HOB elevated 45 degree angle, call light within easy reach, bed at lowest position, will continue to monitor.
[2016-10-20] MEDS: GENTAMICIN 100 MG/ ISO-OSM 50 ML PREMIX IV SCH (13:03)
--- NOTE | 2016-10-20 13:30 | NUR ---
Wound care, CHG, skin care, colt care, and linen changed Pt awake. Eyes open. Wound care, colt care, skin care, and linen changed provided to Pt with assistance staff nurse midwife. Pt tolerate care. Wound care provided per all around presser orders. CHG bath and colt care provided. Linen changes performed. Pt tolerated care. HOB elevated 45 degree angle, call light within easy reach, bed at lowest position, HOB 45 degree angle, will continue to monitor.
--- NOTE | 2016-10-20 14:00 | NUR ---
wound care / dressing change Wound assessed with the following observations:Right Hip:wound bed 20% white, 10% red and 70% pink.No odor, No drainage. Right buttock: 50% white, 40% pink and 10% red.odor, No drainage Left Hip: 50% pink, 40% red, 10% white.No odor, scant drainage Left ankle: 80% yellow and 20% pink. No odor. GT Tube dressing also changed. No s/s of infection noted.Wound care and dressing change provided as per wound care nurse orders.
[2016-10-20] MEDS: MEROPENEM 500 MG in NS 50 ML IV SCH ×2 (14:33→20:16)
--- NOTE | 2016-10-20 15:32 | NUR ---
PATIENT RESTING: Patient resting quietly. No acute distress noted. Vital signs within normal range.
--- NOTE | 2016-10-20 16:00 | NUR ---
oral care Pt. provided scheduled oral care. Scheduled shift assessment and Vent assessment also done. Pt. suctioned - minimal, clear liquid obtained. Pt. resting quietly after these assessments and Tx. No sign of pain or distress noted.
--- NOTE | 2016-10-20 18:36 | NUR ---
closing notes Pt. in bed with eyes closed. Rise and fall of chest noted. Vital signs within normal limits. No signs of distress noted. Patient shift needs and orders met. Will endorse stable patient and report to NOC shift nurse.
--- NOTE | 2016-10-20 19:28 | NUR ---
INITIAL ASSESSTMENT Received Tt a/a/, open her eyes to verbal stimuli. V/S 135/56,98.0,87,23,98%. Pt on vent with settings settings SIMV 6, TV 400, FiO2 30%, PEEP 5, PS 10. Colostomy bag noted left abd. Colostomy bag noted to RLQ. Multi wounds noted left and right hips, buttocks, and right ankle. Dressing is clean, dry and intact. G-tub intact with no kink, flushing well with no residual noted. PICC line noted to ALTAGRACIA, both lumen are flushing well with good blood return. Drew cath patent with clear yellow urine in the bag. Drew cath secure device noted. Bed in low position with call light within reach, will continue to monitor.
--- NOTE | 2016-10-20 21:30 | NUR ---
Carleen care and Oral care Carleen care and oral care rendered to pt. no s/s of any distress noted @ this time. Call light in reach. Will cont to monitor.
--- NOTE | 2016-10-20 23:30 | NUR ---
Colostomy Care Colostomy bag replace. Green liquid stool approx 800cc noted. Stoma is pink no excoriation noted.
[2016-10-21] VITALS (34 sets, daily range): BP systolic 101–166; BP diastolic 42–75; PULSE 74–102; RESP 16–26; TEMP 97.4–98.9; O2SAT 93–100
[2016-10-21] MEDS: IPRATROPIUM BROM 0.5 MG/2.5 ML VIAL.NEB (ATROVENT) INH SCH ×4 (00:07→19:37)
[2016-10-21] MEDS: LevALBUTEROL HCL 1.25 MG/0.5 ML *CONC.* VIAL.NEB (XOPENEX CONC.) INH SCH ×4 (00:07→19:38)
--- NOTE | 2016-10-21 01:00 | NUR ---
CHANGE FEEDING BAG Change feeding bag. No residual noted.
--- NOTE | 2016-10-21 05:30 | NUR ---
AM Care and Oral Care AM care and oral care was rwndered to pt. No s/s of any distess noted
[2016-10-21] MEDS: MEROPENEM 500 MG in NS 50 ML IV SCH ×3 (05:34→21:03)
[2016-10-21] MEDS: INSULIN REGULAR, HUMAN 100 UNITS/ML, 10 ML VIAL (novoLIN R) SUBCUT PRN ×4 (05:41→23:25)
--- NOTE | 2016-10-21 06:00 | NUR ---
Pt on c-pap at the rate 0f 23. Will take ABG @ 4610.
[2016-10-21 06:37] LABS: BASOPHILS # (AUTO) 0.1 K/uL (0.0-0.2); EOSINOPHILS # (AUTO) 0.1 K/uL (0.0-0.4); HEMOGLOBIN 8.3 g/dL (12.0-16.0); LYMPHOCYTES # (AUTO) 1.6 K/uL (1.0-5.5); MEAN CORPUSCULAR VOLUME 83 fL (79.0-98.0); NEUTROPHILS # (AUTO) 7.9 K/uL (1.8-7.7)
[2016-10-21 06:40] LABS: BASOPHILS % (AUTO) 0.7 % (0.0-2.0); EOSINOPHILS % (AUTO) 0.7 % (0.0-4.0); HEMATOCRIT 26.6 % (36-48); LYMPHOCYTES % (AUTO) 15.1 % (20.5-51.5); MEAN CORPUSCULAR HEMOGLOBIN 26 pg (27-31); MEAN CORPUSCULAR HGB CONC 31 % (32-36); MONOCYTES # (AUTO) 0.6 K/uL (0.0-1.0); MONOCYTES % (AUTO) 6.2 % (1.7-9.3); NEUTROPHILS % (AUTO) 77.3 % (40.0-70.0); PLATELET COUNT (AUTO) 419 K/uL (130-430); RED BLOOD CELL COUNT(AUTO) 3.21 MIL/uL (4.2-6.2); RED CELL DISTRIBUTION WIDTH 18.6 % (9.0-15.0); WHITE BLOOD COUNT (AUTO) 10.3 K/uL (4.8-10.8)
[2016-10-21 06:49] LABS: ANION GAP 3 (5-15); CALCIUM 8.3 mg/dL (8.4-11.0); CHLORIDE 102 mmol/L (98-107); CREATININE 0.65 mg/dL (0.55-1.30); GLUCOSE 286 mg/dL (70-99); POTASSIUM 3.9 mmol/L (3.5-5.1); SODIUM SERUM 138 mmol/L (136-145); UREA NITROGEN, BLOOD 20 mg/dL (8-21)
--- NOTE | 2016-10-21 06:57 | NUR ---
FINAL NOTES Pt is resting comfortably @ this time. No s/s of any distress noted. Pt is tolerating c-pap at this time. All needs met and anticipated. Bed in low position with call light within reach. Endorsed.
[2016-10-21 07:25] LABS: BLOOD GAS PH 7.497 (7.350-7.450)
[2016-10-21 07:26] LABS: ABG TOTAL HEMOGLOBIN 8.7 G/dL (12.0-18.0); BLOOD GAS BASE EXCESS 8.9 mmol/L (-3.0-3.0); BLOOD GAS COHb% 0.5 % (0.5-1.5); BLOOD GAS HHB 4.1 % (0.0-6.0); BLOOD O2Hb% 95.1 % (94.0-97.0)
--- NOTE | 2016-10-21 08:45 | NUR ---
MD rounds Pt awake. Eyes open. Pt unable to follow simple commands and verbalize needs. Pt withdraws to painful stimuli. Pt tolerating Cpap mode. O2 sat @ 98%. Lung sounds clear throughout all lobes. Dr. Tejeda at the bedside discussing plan of care. Currently awaiting new orders. HOB elevated 45 degree angle, call light within easy reach, bed at lowest position, will continue to monitor.
[2016-10-21] MEDS: POTASSIUM CHLORIDE 20 MEQ/PKT PACKET GT SCH ×2 (10:10→21:00)
[2016-10-21] MEDS: AMIODARONE HCL 200 MG TABLET GT SCH (10:11)
[2016-10-21] MEDS: HYDROCORTISONE SOD SUCC 100 MG/2 ML VIAL IVP SCH ×2 (10:11→21:01)
[2016-10-21] MEDS: BISACODYL 10 MG/SUPPOSITORY RC SCH (10:12)
[2016-10-21] MEDS: FERROUS SULFATE 300 MG/5 ML UDC GT SCH (10:12)
[2016-10-21] MEDS: MULTIVITS W-MIN/FERROUS GLUC 15 ML UDC GT SCH (10:12)
[2016-10-21] MEDS: DOCUSATE SODIUM 100 MG/10 ML UDC GT SCH ×2 (10:13→21:00)
[2016-10-21] MEDS: FAMOTIDINE 20 MG TABLET GT SCH ×2 (10:13→21:01)
[2016-10-21] MEDS: CARBIDOPA/LEVODOPA 25/100 MG TABLET GT SCH ×3 (10:13→21:01)
[2016-10-21] MEDS: ASCORBIC ACID 500 MG TABLET GT SCH (10:14)
[2016-10-21] MEDS: 0.45% NACL 1,000 ML IV SCH (10:14)
[2016-10-21] MEDS: ENOXAPARIN SODIUM 30 MG/0.3 ML SYRINGE SQ SCH (10:14)
[2016-10-21] MEDS: BALSAM PERU/CASTOR OIL 60 GM OINT...G. TP SCH (10:15)
[2016-10-21] MEDS: MUPIROCIN 2% TOPICAL OINTMENT 22 GM TP SCH ×2 (10:15→21:04)
--- NOTE | 2016-10-21 11:30 | NUR ---
Pt appears restless and agitated. HR 112 and R 30. Pt is on Cpap 6. Dr. Casarez at the bedside evaluating. New orders acknowledge and noted. Addendum: 10/21/16 at 1635 by Leona Beck RN vent settings were changed to SIMV 6, TV 400, FiO2 30%, PEEP 5. Pt tolerating new vent settings, will continue to monitor.
[2016-10-21] MEDS: COLISTIMETHATE SODIUM 150 MG VIAL INH SCH ×2 (12:04→20:25)
[2016-10-21] MEDS: GENTAMICIN 100 MG/ ISO-OSM 50 ML PREMIX IV SCH (13:08)
--- NOTE | 2016-10-21 15:54 | NUR ---
Wound care, CHG, skin care, colt care, colostomy bag change, and linen changed Pt awake. Eyes open. Wound care, colt care, skin care, and linen changed provided to Pt with assistance staff software engineer. Left hip wound bed is 80% pink tissue, 20% red tissue. No odor, scant sanguineous drainage. Colt-wound and surrounding tissue has scar tissue. Wound cleanse with NS, pat dry with 4x4, applied z guard cream and foam dressing. Left buttocks wound bed is 90% red and 10%yellow, tunneling and odor noted. Wound cleanse with NS, pat dry with 4x4, applied Venelex ointment on wound bed and z guard cream around wound bed. Tender wet dressing and foam dressing. Right buttock wound bed 50% yellow, 40%red and 10%yellow. No odor noted. Wound cleanse with NS, pat dry with 4x4, applied Venelex ointment on wound bed and z guard cream around wound bed. Right hip wound bed 80% red, 5% pink, and 15% yellow.Wound cleanse with NS, pat dry with 4x4, applied Venelex ointment on wound bed and z guard cream around wound bed. Ostomy bag changed. Ostomy site intact. No s/s of redness or inflammation noted. Pt tolerated care. HOB elevated 45 degree angle, call light within easy reach, bed at lowest position, HOB 45 degree angle, will continue to monitor.
--- NOTE | 2016-10-21 20:00 | NUR ---
PM Assessment pt opened eye for tactile stimuli. Pt on SIMV 6, FIO2 30%, TV 400, PEEP 5, and pressure support 10. ETT size 7.5, lip line 21cm. Pt spo2 at 100%. tolerating well. Multiple wounds noted. dressing in place. Clean and intact. PICC on the right upper arm. dressing was changed on 10/19/16. IV fluid infusing 1/2 NS at 40ml/hr. patent. Drew to gravity yellow urine with sediments. Colostomy noted with loose brown stool. G-tube noted infusing Diabetic source 40ml/hr. Residual 5ml noted. Aspiration precaution in place. Oral care provided. HOB 30 degrees elevated. Pt repositioned with heels floating. Multiple wounds noted, dressing clean and intact. Pt on air matress for skin precaution. DVT prophylactic Lovenox. Safety precaution in place. Bed in the lowest positioned, locked. call light in reach. Will continue to monitor.
[2016-10-22] VITALS (31 sets, daily range): BP systolic 108–148; BP diastolic 42–69; PULSE 70–92; RESP 10–29; TEMP 97.7–99.8; O2SAT 95–100
[2016-10-22] MEDS: LevALBUTEROL HCL 1.25 MG/0.5 ML *CONC.* VIAL.NEB (XOPENEX CONC.) INH SCH ×4 (00:12→19:30)
[2016-10-22] MEDS: IPRATROPIUM BROM 0.5 MG/2.5 ML VIAL.NEB (ATROVENT) INH SCH ×4 (00:13→19:30)
[2016-10-22] MEDS: MEROPENEM 500 MG in NS 50 ML IV SCH ×3 (05:57→21:17)
[2016-10-22] MEDS: INSULIN REGULAR, HUMAN 100 UNITS/ML, 10 ML VIAL (novoLIN R) SUBCUT PRN ×3 (06:02→18:30)
[2016-10-22 06:43] LABS: ANION GAP -1 (5-15); CALCIUM 8.3 mg/dL (8.4-11.0); CHLORIDE 102 mmol/L (98-107); CREATININE 0.64 mg/dL (0.55-1.30); GLUCOSE 311 mg/dL (70-99); POTASSIUM 4.3 mmol/L (3.5-5.1); SODIUM SERUM 137 mmol/L (136-145); UREA NITROGEN, BLOOD 18 mg/dL (8-21)
[2016-10-22 07:00] LABS: HEMATOCRIT 25.7 % (36-48); HEMOGLOBIN 8.1 g/dL (12.0-16.0); MEAN CORPUSCULAR HEMOGLOBIN 27 pg (27-31); MEAN CORPUSCULAR HGB CONC 31 % (32-36); MEAN CORPUSCULAR VOLUME 84 fL (79.0-98.0); PLATELET COUNT (AUTO) 430 K/uL (130-430); RED BLOOD CELL COUNT(AUTO) 3.05 MIL/uL (4.2-6.2); RED CELL DISTRIBUTION WIDTH 19.3 % (9.0-15.0)
--- NOTE | 2016-10-22 08:00 | NUR ---
AM ASSESSMENT. PT ON SIMV MODE, BREATHING REGULAR RATE, OPENS HER EYES WHEN TALKED TO, ORAL CARE DONE, BITE BLOCK IN PLACE, MODERATE SECRETIONS, CLEAR CONSISTENCY, REPOSITIONED IN BED, CONTRACTED EXTREMITIES, FOAM DRESSINGS TO INNER KNEES, LEFT ANKLE, BUTTOCKS, COLOSTOMY WITH LOOSE GREENISH OUTPUT, ROTH CATHETER DRAINING WELL.
[2016-10-22 08:05] LABS: WHITE BLOOD COUNT (AUTO) 11.4 K/uL (4.8-10.8)
[2016-10-22] MEDS: DOCUSATE SODIUM 100 MG/10 ML UDC GT SCH ×2 (09:00→20:50)
[2016-10-22] MEDS: BISACODYL 10 MG/SUPPOSITORY RC SCH (09:00)
[2016-10-22] MEDS: COLISTIMETHATE SODIUM 150 MG VIAL INH SCH ×2 (09:00→21:02)
[2016-10-22 09:34] LABS: ATYPICAL LYMPHOCYTES % 0 % (0-0); BAND % (MANUAL) 0 % (0-6); BASOPHILS % (MANUAL) 0 % (0-2); EOSINOPHILS % (MANUAL) 1 % (0-7); LYMPHOCYTES % (MANUAL) 11 % (20-46); METAMYELOCYTES % 2 % (0-0); MONOCYTES % (MANUAL) 4 % (0-11); MYELOCYTES % 2 % (0-0)
[2016-10-22] MEDS: FAMOTIDINE 20 MG TABLET GT SCH ×2 (09:42→20:50)
[2016-10-22] MEDS: AMIODARONE HCL 200 MG TABLET GT SCH (09:42)
[2016-10-22] MEDS: ASCORBIC ACID 500 MG TABLET GT SCH (09:42)
[2016-10-22] MEDS: CARBIDOPA/LEVODOPA 25/100 MG TABLET GT SCH ×3 (09:42→20:50)
[2016-10-22] MEDS: FERROUS SULFATE 300 MG/5 ML UDC GT SCH (09:43)
[2016-10-22] MEDS: ENOXAPARIN SODIUM 30 MG/0.3 ML SYRINGE SQ SCH (09:43)
[2016-10-22] MEDS: HYDROCORTISONE SOD SUCC 100 MG/2 ML VIAL IVP SCH ×2 (09:44→20:52)
[2016-10-22] MEDS: POTASSIUM CHLORIDE 20 MEQ/PKT PACKET GT SCH ×2 (09:44→20:50)
[2016-10-22] MEDS: MULTIVITS W-MIN/FERROUS GLUC 15 ML UDC GT SCH (09:45)
[2016-10-22] MEDS: 0.45% NACL 1,000 ML IV SCH (09:48)
[2016-10-22] MEDS: BALSAM PERU/CASTOR OIL 60 GM OINT...G. TP SCH (09:50)
[2016-10-22] MEDS: MUPIROCIN 2% TOPICAL OINTMENT 22 GM TP SCH ×2 (09:50→20:52)
--- NOTE | 2016-10-22 10:00 | NUR ---
VENT. DR BUTT HERE AND CHANGED MODE TO CPAP TV 400 PRESSURE SUPPORT 10 FIO2 30% PEEP 5. WILL GET ABG AFTER 2 HOURS.
[2016-10-22] MEDS ORDERED: FUROSEMIDE 20 MG/2 ML VIAL IVP ONE (10:15)
[2016-10-22 12:16] LABS: BLOOD GAS PH 7.524 (7.350-7.450)
[2016-10-22 12:17] LABS: ABG TOTAL HEMOGLOBIN 9.8 G/dL (12.0-18.0); BLOOD GAS BASE EXCESS 12.4 mmol/L (-3.0-3.0); BLOOD GAS COHb% 0.5 % (0.5-1.5); BLOOD GAS HHB 5.6 % (0.0-6.0); BLOOD O2Hb% 93.4 % (94.0-97.0)
--- NOTE | 2016-10-22 13:25 | NUR ---
Wound Re-Evaluation: Patient received in an ICU [facility] bed on a low air-loss mattress, awake, non-verbal, non-responsive to verbal cues. Skin is poor. Endotracheal Sputum Culture results: Peudomonas Aeruginosa (MDRO, BRAIDING MACHINE OPERATOR), Klebsiella Pneumoniae (ESBL, MDRO), MRSA Colonization. Intrinsic Factors that delay wound healing: Diabetes Mellitus, Anemia. Extrinsic factors that decrease wound healing: immobility, very limited turning areas available. Sacral, Coccygeal, and buttocks areas have scar tissue. Wound Assessment: 1) Left Hip: Unstageable Pressure Ulcer, present on admission. Wound bed is 50% pink tissue, 45% yellow tissue, 5% red tissue. No odor, scant sanguineous drainage. Colt-wound and surrounding tissue has scar tissue. Measures 6.5 cm x 7.0 cm x 2.0 cm. Undermining present from 7-1 o'clock, deepest 1.6 cm at 10 o'clock. Recommend continue: Cleanse wound with normal saline. Pat dry. Put moisture barrier cream onto colt-wound. Put Venelex ointment onto wound bed. Place 2.2 inch tender wet dressing into wound cavity. Cover with foam dressings, then transparent dressings. Perform wound care daily and as needed for dressing soiling or dislodgment. 2) Right Lateral Buttock: Prior Stage 4 Pressure Ulcer, present on admission. 50% yellow tissue, 50% pink tissue. No odor, scant serous drainage. White colt-wound. Measures 2.3 cm x 1.0 cm x 0.5 cm. 3) Right Buttock, Medial to Wound 2): Unstageable Pressure Ulcer, present on admission. 30% yellow tissue, 70% pink tissue. No odor, no drainage. White colt-wound. Measures 5.4 cm x 1.7 cm x 0.4 cm. Undermining present from 7-10 o'clock, deepest 0.4 cm at 9 o'clock. Recommend continue: Cleanse wounds with normal saline. Pat dry. Put moisture barrier cream onto colt-wounds. Put Venelex ointment onto wound beds. Cover with foam dressings, then transparent dressings. Perform wound care daily and as needed for dressing soiling or dislodgment. 4) Right Buttock, Medial to Wound 2): Area of non-intact skin, medial to Wound 3), present on admission. 100% red tissue. No odor, no drainage. White colt-wound. Recommend continue: Cleanse wound with normal saline. Pat dry. Put moisture barrier cream onto wound and colt-wound. Put Venelex ointment onto any portion of wound not covered by moisture barrier cream. Cover with foam dressing, then transparent dressings. Perform wound care daily and as needed for dressing soiling or dislodgment. 5) Left Buttock near Ischium: scar tissue from a previously healed wound of unknown etiology. Area is reopening secondary to tissue weakness and co-morbidities. Visible tissue is red with dark discoloration. No odor, no drainage. Colt-wound intact. 6) Coccygeal area: 100% brown eschar. No odor, scant sanguineous drainage. Periwound intact. Recommend: Cleanse wound with normal saline. Put moisture barrier cream onto colt-wound. Put Venelex ointment onto wound bed. Cover with foam dressing. Perform wound care daily and as needed for dressing soiling or dislodgment. 7) Left Lateral Malleolus: Unstageable Pressure Ulcer, present on admission. 50% yellow tissue, 50% red tissue. No odor, no drainage. White colt-wound. Measures 1.5 cm x 1.5 cm. Recommend continue: Cleanse wound with normal saline. Put moisture barrier cream onto colt-wound. Put Venelex ointment onto wound bed. Cover with foam dressing. Perform wound care daily and as needed for dressing soiling or dislodgment. 8) Left Medial Great Toe: Blanchable redness, present on admission. No odor, no drainage. 9) Left Medial foot, 1st metatarsal head: Blanchable redness, present on admission. No odor, no drainage. Recommend continue: Cover with foam dressing for protection. Change dressing daily, and as needed for dressing soiling or dislodgment. Elevate, offload and float bilateral feet and heels with pillows at all times. Also recommend continue: Reposition patient side to side only every two hours with pillow support, off-load heels in bilateral heel boots, off-load pressure areas with pillows for pressure re-distribution. Do not place patient flat on her back. Perform skin care and monitor skin integrity q shift. Use moisture barrier cream on moisture susceptible areas qid and prn for soiling. Elevate, offload, and float bilateral heels with Heelift Boots. Maintain patient on a Low Air-Loss Mattress.
[2016-10-22] MEDS: GENTAMICIN 100 MG/ ISO-OSM 50 ML PREMIX IV SCH (13:26)
--- NOTE | 2016-10-22 14:24 | NUR ---
Wound Care Planning: Updated Dr. Teran on patient's wounds. Recommended surgical consult. No orders received at this time.
--- NOTE | 2016-10-22 14:45 | NUR ---
TUBE FEEDING. CALLED DR BUTT. PT COMPLETED HER WOUND CARE TREATMENT THIS AFTERNOON AND WAS ABLE TO TOLERATE PROCEDURE. ORDERED TO DISCONTINUE TUBE FEEDING AND R. T. TO EXTUBATE PT.
--- NOTE | 2016-10-22 16:43 | NUR ---
[address] maxi carpenter. placed on 2l nasal cannula. sat99%, rn aware. Addendum: 10/22/16 at 1644 by Kenya Jefferson RT Amended: Links added.
--- NOTE | 2016-10-22 18:15 | NUR ---
NURSING. PT'S BREATHING IN NORMAL PATTERN, AWAKE, O2 VIA NASAL CANNULA AT 2L, SINUS RHYTHM ON PRINTING SIGN MACHINE OPERATOR, COLOSTOMY IN PLACE, NO LEAKS, MADE PT CLEAN AND DRY, FOAM DRESSING TO BUTTOCKS, LEFT ANKLE, INNER SIDE OF KNEES INTACT.
--- NOTE | 2016-10-22 20:00 | NUR ---
LETHARGIC. EASILY AROUSABLE. ON O2 AT 2L/MIN/NC. POX 100%. SUCTIONED BUCCAL CAVITY VIA [place]AUER. EXTREMITIES CONTRACTED. REPOSITIONED. ROTH CATH PATENT DRAINING CLOUDY REHANA URINE TO GRAVITY. COLOSTOMY IN RLQ. CONTACT ISOLATION OBSERVED. NSR
--- NOTE | 2016-10-22 22:00 | NUR ---
TURNED. HS CARE. UO ADEQUATE.
[2016-10-23] VITALS (25 sets, daily range): BP systolic 101–147; BP diastolic 32–60; PULSE 68–81; RESP 12–23; TEMP 96.5–97.9; O2SAT 96–100
--- NOTE | 2016-10-23 | NUR ---
SOUNDLY ASLEEP. VSS. ACCU-CHEK 139, NO INSULIN COV DUE PER SLIDING SCALE. TURNED.
[2016-10-23] MEDS: INSULIN REGULAR, HUMAN 100 UNITS/ML, 10 ML VIAL (novoLIN R) SUBCUT PRN ×3 (00:15→17:42)
[2016-10-23] MEDS: IPRATROPIUM BROM 0.5 MG/2.5 ML VIAL.NEB (ATROVENT) INH SCH ×4 (00:47→19:45)
[2016-10-23] MEDS: LevALBUTEROL HCL 1.25 MG/0.5 ML *CONC.* VIAL.NEB (XOPENEX CONC.) INH SCH ×4 (00:47→19:45)
--- NOTE | 2016-10-23 02:00 | NUR ---
SOUNDLY ASLEEP. UO GOOD. TURNED.
--- NOTE | 2016-10-23 04:00 | NUR ---
GRINDS TEETH. ABLE TO FOCUS EYES. ORAL CARE. TURNED. VSS. UO ADEQUATE.
[2016-10-23] MEDS: MEROPENEM 500 MG in NS 50 ML IV SCH ×3 (05:56→22:21)
--- NOTE | 2016-10-23 06:00 | NUR ---
COLOSTOMY 150CC OUT. ACCU-CHEK 173, 2 UNITS REGULAR INSULIN SQ GIVEN PER SLIDING SCALE COV. UO GOOD. REMAINS IN GUARDED CONDITION.
[2016-10-23 06:43] LABS: CALCIUM 8.4 mg/dL (8.4-11.0); CHLORIDE 100 mmol/L (98-107); CREATININE 0.57 mg/dL (0.55-1.30); GLUCOSE 209 mg/dL (70-99); POTASSIUM 3.9 mmol/L (3.5-5.1); SODIUM SERUM 137 mmol/L (136-145); UREA NITROGEN, BLOOD 19 mg/dL (8-21)
[2016-10-23 06:53] LABS: ANION GAP > 3 (5-15)
[2016-10-23 07:04] LABS: BASOPHILS # (AUTO) 0.1 K/uL (0.0-0.2); BASOPHILS % (AUTO) 0.6 % (0.0-2.0); EOSINOPHILS # (AUTO) 0.1 K/uL (0.0-0.4); EOSINOPHILS % (AUTO) 0.7 % (0.0-4.0); HEMATOCRIT 25.1 % (36-48); HEMOGLOBIN 7.9 g/dL (12.0-16.0); LYMPHOCYTES # (AUTO) 1.2 K/uL (1.0-5.5); LYMPHOCYTES % (AUTO) 12.1 % (20.5-51.5); MEAN CORPUSCULAR HEMOGLOBIN 27 pg (27-31); MEAN CORPUSCULAR HGB CONC 31 % (32-36); MEAN CORPUSCULAR VOLUME 84 fL (79.0-98.0); MONOCYTES # (AUTO) 0.5 K/uL (0.0-1.0); MONOCYTES % (AUTO) 4.9 % (1.7-9.3); NEUTROPHILS # (AUTO) 8.2 K/uL (1.8-7.7); NEUTROPHILS % (AUTO) 81.7 % (40.0-70.0); PLATELET COUNT (AUTO) 418 K/uL (130-430); RED CELL DISTRIBUTION WIDTH 19.9 % (9.0-15.0); WHITE BLOOD COUNT (AUTO) 10.1 K/uL (4.8-10.8)
[2016-10-23 07:35] LABS: BLOOD GAS PH 7.493 (7.350-7.450)
[2016-10-23 07:36] LABS: ABG TOTAL HEMOGLOBIN 8.4 G/dL (12.0-18.0); BLOOD GAS BASE EXCESS 14.6 mmol/L (-3.0-3.0); BLOOD GAS COHb% 0.2 % (0.5-1.5); BLOOD GAS HHB 2.8 % (0.0-6.0); BLOOD O2Hb% 96.9 % (94.0-97.0)
--- NOTE | 2016-10-23 08:00 | NUR ---
AM ASSESSMENT PT AWAKENS WITH TACTILE STIMULATION, NONVERBAL, PUPILS PERRLA. SINUS RHYTHM. LUNG SOUNDS CLEAR x5 LOBES, DIMINISHED AT THE BASES. NASAL CANNULA AT 2L. BOWEL SOUNDS ACTIVE x4 QUADRANTS, PT NPO AT THIS TIME. COLOSTOMY BAG INTACT, WITH GREEN/BROWN STOOL IN BAG. GT INTACT. ROTH CATH IN PLACE, SECURED TO PATIENT, WITH CLEAR YELLOW URINE IN DRAINAGE BAG. WOUND DRESSINGS CDI, WOUNDS NOT SEEN AT THIS TIME. IVs PATENT AND FLUSHABLE, DRESSINGS CDI. PATIENT REPOSITIONED ON SIDE WITH PILLOWS SUPPORTING BONY PROMINENCES. PT PREPARED FOR WOUND DEBRIDEMENT.
[2016-10-23 08:08] LABS: RED BLOOD CELL COUNT(AUTO) 2.97 MIL/uL (4.2-6.2)
--- NOTE | 2016-10-23 08:51 | NUR ---
ABG. RESULT RELAYED TO DR BUTT. NO NEW ORDERS RECEIVED.
[2016-10-23] MEDS: FERROUS SULFATE 300 MG/5 ML UDC GT SCH (09:00)
[2016-10-23] MEDS: ASCORBIC ACID 500 MG TABLET GT SCH (09:00)
[2016-10-23] MEDS: DOCUSATE SODIUM 100 MG/10 ML UDC GT SCH ×2 (09:00→20:39)
[2016-10-23] MEDS: MULTIVITS W-MIN/FERROUS GLUC 15 ML UDC GT SCH (09:00)
[2016-10-23] MEDS: FAMOTIDINE 20 MG TABLET GT SCH ×2 (09:00→20:39)
[2016-10-23] MEDS: CARBIDOPA/LEVODOPA 25/100 MG TABLET GT SCH ×3 (09:00→20:39)
[2016-10-23] MEDS: AMIODARONE HCL 200 MG TABLET GT SCH (09:00)
[2016-10-23] MEDS: BISACODYL 10 MG/SUPPOSITORY RC SCH (09:00)
[2016-10-23] MEDS: POTASSIUM CHLORIDE 20 MEQ/PKT PACKET GT SCH ×2 (09:00→20:39)
[2016-10-23] MEDS: COLISTIMETHATE SODIUM 150 MG VIAL INH SCH ×2 (09:07→21:06)
[2016-10-23] MEDS: HYDROCORTISONE SOD SUCC 100 MG/2 ML VIAL IVP SCH ×2 (09:14→20:39)
[2016-10-23] MEDS: MUPIROCIN 2% TOPICAL OINTMENT 22 GM TP SCH ×2 (09:15→21:05)
[2016-10-23] MEDS ORDERED: PROPOFOL 200MG/ 20ML VIAL (DIPRIVAN) IV ONE (10:12)
[2016-10-23] MEDS ORDERED: WATER FOR IRRIGATION,STERILE 1,000 ML IRRIG.SOLN IR ONE (10:12)
--- NOTE | 2016-10-23 10:20 | NUR ---
WOUND DEBRIDEMENT DR. SINGLETARY AND OR STAFF ARRIVE FOR BEDSIDE DEBRIDEMENT OF PT's WOUNDS ON THE LEFT HIP. CONSENT WAS MADE OF YESTERDAY. TIME OUT OCCURRED WITH OR STAFF. SUCTION WITH YANKEUR AVAILABLE FOR USE DURING PROCEDURE.
--- NOTE | 2016-10-23 10:40 | NUR ---
WOUND CARE. NEW WOUND VACUUM TO LEFT HIP I PLACE, CONTINUOUS SUCTION, NO LEAKS COMING FROM THE DEVICE.
[2016-10-23] MEDS: 0.45% NACL 1,000 ML IV SCH (11:39)
[2016-10-23] MEDS: BALSAM PERU/CASTOR OIL 60 GM OINT...G. TP SCH (11:39)
[2016-10-23] MEDS: ENOXAPARIN SODIUM 30 MG/0.3 ML SYRINGE SQ SCH (11:40)
--- NOTE | 2016-10-23 12:00 | NUR ---
BLOOD GLUCOSE PT NPO AT THIS TIME. BLOOD GLUCOSE READING OF 145 BY FINGERSTICK. NO INSULIN NEEDED PER SLIDING SCALE.
--- NOTE | 2016-10-23 14:57 | NUR ---
ASSESSMENT PT AWAKENS TO VERBAL/TACTILE STIMULATION. NO VERBAL RESPONSE. SINUS RHYTHM. LUNGS CLEAR x5 LOBES, NASAL CANNULA 2L, O2 SATURATION 100%. BOWEL SOUNDS ACTIVE x4 QUADRANTS. COLOSTOMY BAG EMPTIED WITH 100ML GREEN LOOSE STOOL. DIABETICSOURCE TUBE FEEDING RESUMED AT 40ML/HR PER DR ORDERS. ROTH CATH SECURED, DRAINING CLEAR YELLOW URINE. WOUND DRESSINGS CDI. ALTAGRACIA PICC DRESSING CHANGED USING STERILE TECHNIQUE, NEW DRESSING CDI. REPOSITIONED PATIENT ON RIGHT SIDE WITH HOB ELEVATED AND PILLOWS USED TO SUPPORT BONY PROMINENCES. WILL CONTINUE TO MONITOR PT.
--- NOTE | 2016-10-23 15:40 | NUR ---
ENDORSEMENT OF CARE ENDORSED CARE TO OLEKSANDR BURCIAGA AT THIS TIME. BEDSIDE REPORT GIVEN.
--- NOTE | 2016-10-23 15:45 | NUR ---
ASSUMPTION OF CARE Received Pt from GUALBERTO Johnson. Pt within normal vital signs. Continued care on Pt and monitored.
--- NOTE | 2016-10-23 15:47 | NUR ---
10/23/16 NUTRITION F/U Admitting Diagnosis Septic shock, acute respiratory failure, UTI, ARF, severe malnutrition Reviewed Pertinent Medical/Surgical Hx Patient Primary RN Medical Record Medical History Comment: Parkinson Dz, dementia, stage 4 decubitus ulcer of coccyx, DM, severe malnutrition, chronic anemia, GT placement, diverting colostomy per MD notes Pt also seen with S/P Septic shock, MDR Acinetobacter Septisemia 2/2 Pneumonia, MRSA Colonization, infected decub ulcers, Respiratory failure, CRD Pseudomonas Pneumonia vs Colonization. per MD notes 10/23/16 Subjective Information Pt seen resting in bed, +intubated to vent (SIMV mode), at time of RD visit. Pt TF on hold for pending debridement. Per RN, TF was on hold since yesterday afternoon. Per MD notes: Excisional debridement of sacral decubitus ulcer, sacral ulcer and left leg ulcer. NPO after midnight. Current TF regimen remains appropriate. Pt is not appropriate for nutrition education. Current Diet Order/Nutrition Support Diabetisource AC at 40 ml/hr, Prosource TID, Free Water Flush: 100 ml Q6h via GT Patient/Significant Other Unable To Verbalize Education Provided Not Indicated Pertinent Medications solu-cortef, morphine, Potassium chloride, ferrous sulfate oral liquid, MVI, VIT C, pepcid, colace, SSI, fleet enema, MOM, dulcolax suppository Pertinent Labs 10/23/16 RBC 2.97L, Hgb 7.9L, Hct 25.1L, Lymph % 12.1L, BG 209H, POC BG 173H, Carbon Dioxide 36H Height (Feet) 5 feet Height (Inches) 3.00 inches Weight (Pounds) 106 pounds (admission) BEDSCALE WT: 112.5 lb, 51 kg (10/18/16); 109 lb, 50 kg (10/20/16) -- note that pt is on an air mattress Weight (Calculated Kilograms) 48.825465 kilograms Patient Weight 48.081 kg Body Mass Index 18.77 kg/m2 %IBW 92 [place]/Adjusted Body Weight IBW: 116 lb, 52 kg Recent Weight Change Unknown Last BM Oct 20, 2016 Food Allergies Unknown Usual Diet At Home Oc Maier: Glucerna 1.2 at 55 cc/hr x20 hours, ProStat BID Skin Integrity Comment: Abdulkadir scale: 12; per EMR. Per MD notes 10/23 : Excisional debridement of sacral decubitus ulcer, sacral ulcer and left leg ulcer. Estimated Energy Expenditure (kcals/day) 1160 kcal/day (PSU 2003 for critical illness, vent support) Estimated Protein Required (g/day) 72-96 gm/day (1.5-2 gm/kg CBW for sepsis, wound healing) Estimated Fluid Required (l/day) 1.4 L/day (30 ml/kg CBW for geriatric maintenance) Problem/Etiology/Signs/Symptoms Inadequate nutritional intakes related to increased nutritional needs for metabolic demands as evidenced by no currently infusing nutrition support to meet estimated nutritional requirements. *resolved Altered nutrition-related labs related to endocrine dysfunction as evidenced by elevated BG and POC BG labs. *ongoing Expected Outcomes/Goals - Monitor provision of EN w/ goal of pt meeting at least 50% of estimated nutritional needs, labs trending WNL, normal GI function, and skin integrity/wt maintenance Dietitian Recommendations *Consider NPO order. *Consider resuming TF per MD orders. Follow Up High Risk: F/U in 2-3 days. Follow up by: October 26, 2016
--- NOTE | 2016-10-23 16:00 | NUR ---
OUTPUT DR AWARE OF CURRENT PT I&O STATUS. NO CHANGE IN ORDERS.
--- NOTE | 2016-10-23 17:00 | NUR ---
Dr. Jeffry Teran seen pt. Updated Pt's status.
--- NOTE | 2016-10-23 19:10 | NUR ---
Closing notes Report given to GUALBERTO Alcaraz and endorsed all care. Vital signs stable, wound dressings intact and no signs of distress.
--- NOTE | 2016-10-23 19:20 | NUR ---
PM SHIFT ASSESSMENT Pt is awake and alert, not oriented. Nonverbal. No s/s of acute distress noted. NC @ 2L. RR even and unlabored. SR on monitor. Colostomy to LLQ with brown loose stool. Gtube noted, auscultated for correct placement, residual of 30ml. Diabetic source @ 40ml/hr. Drew catheter draining to gravity. PICC line to ALTAGRACIA, IVF infusing, no s/s of infiltration. Wounds to sacrum and hip, dressing clean, dry and intact. Safety precautions in place, will continue to monitor.
[2016-10-24] VITALS (13 sets, daily range): BP systolic 99–151; BP diastolic 41–60; PULSE 69–83; RESP 13–19; TEMP 97–98.3; O2SAT 94–100
--- NOTE | 2016-10-24 | NUR ---
Pt sleeping in bed. No s/s of acute distress noted. Will continue to monitor.
[2016-10-24] MEDS: LevALBUTEROL HCL 1.25 MG/0.5 ML *CONC.* VIAL.NEB (XOPENEX CONC.) INH SCH ×4 (00:28→20:02)
[2016-10-24] MEDS: IPRATROPIUM BROM 0.5 MG/2.5 ML VIAL.NEB (ATROVENT) INH SCH ×4 (00:29→20:02)
[2016-10-24] MEDS: MEROPENEM 500 MG in NS 50 ML IV SCH ×3 (05:31→21:22)
[2016-10-24] MEDS: INSULIN REGULAR, HUMAN 100 UNITS/ML, 10 ML VIAL (novoLIN R) SUBCUT PRN ×3 (05:57→17:57)
[2016-10-24 06:43] LABS: ANION GAP < 3 (5-15); CALCIUM 8.3 mg/dL (8.4-11.0); CHLORIDE 102 mmol/L (98-107); CREATININE 0.57 mg/dL (0.55-1.30); GLUCOSE 226 mg/dL (70-99); POTASSIUM 4.2 mmol/L (3.5-5.1); SODIUM SERUM 136 mmol/L (136-145); UREA NITROGEN, BLOOD 21 mg/dL (8-21)
[2016-10-24 06:46] LABS: BASOPHILS % (AUTO) 0.2 % (0.0-2.0); EOSINOPHILS # (AUTO) 0.3 K/uL (0.0-0.4); EOSINOPHILS % (AUTO) 2.6 % (0.0-4.0); HEMATOCRIT 25.4 % (36-48); LYMPHOCYTES # (AUTO) 1.2 K/uL (1.0-5.5); LYMPHOCYTES % (AUTO) 10.5 % (20.5-51.5); MEAN CORPUSCULAR HEMOGLOBIN 27 pg (27-31); MEAN CORPUSCULAR HGB CONC 31 % (32-36); MEAN CORPUSCULAR VOLUME 85 fL (79.0-98.0); MONOCYTES # (AUTO) 0.5 K/uL (0.0-1.0); MONOCYTES % (AUTO) 4.4 % (1.7-9.3); NEUTROPHILS # (AUTO) 9.1 K/uL (1.8-7.7); NEUTROPHILS % (AUTO) 82.3 % (40.0-70.0); PLATELET COUNT (AUTO) 437 K/uL (130-430); RED BLOOD CELL COUNT(AUTO) 2.99 MIL/uL (4.2-6.2); RED CELL DISTRIBUTION WIDTH 19.6 % (9.0-15.0); WHITE BLOOD COUNT (AUTO) 11.1 K/uL (4.8-10.8)
--- NOTE | 2016-10-24 07:25 | NUR ---
ENDORSEMENT Pt care endorsed to GUALBERTO Abdi at bedside using nursing SBAR.
[2016-10-24] MEDS: COLISTIMETHATE SODIUM 150 MG VIAL INH SCH ×2 (07:37→20:07)
--- NOTE | 2016-10-24 07:50 | NUR ---
AM Shift Assessment Received pt awake, nonverbal, unable to follow commands or track. Respirations even and unlabored on 2L O2 via NC. No SOB or acute distress noted. Skin warm and dry. Multiple wounds noted, covered with dressings, clean, dry, intact. Wound on L hip with wound vac in place to suction 150 mmHg. PICC on ALTAGRACIA intact, patent, with 1/2 NS 40 ml/hr. GT intact, patent with Diabetesource 40 ml/hr, no residual noted. Drew in place draining brooke urine. Colostomy in left quadrant with loose brown stool. Lungs clear bilaterally. Heart sounds regular, SR on monitor, HR 78. Repositioned patient. Bed in lowest position. Patient is on air mattress. Call light in reach. Will continue to monitor.
[2016-10-24] MEDS: BISACODYL 10 MG/SUPPOSITORY RC SCH (09:00)
--- NOTE | 2016-10-24 09:00 | NUR ---
Dr. Casarez in to see patient.
[2016-10-24] MEDS: POTASSIUM CHLORIDE 20 MEQ/PKT PACKET GT SCH ×2 (09:01→21:22)
[2016-10-24] MEDS: AMIODARONE HCL 200 MG TABLET GT SCH (09:02)
[2016-10-24] MEDS: FAMOTIDINE 20 MG TABLET GT SCH ×2 (09:02→21:22)
[2016-10-24] MEDS: ASCORBIC ACID 500 MG TABLET GT SCH (09:03)
[2016-10-24] MEDS: FERROUS SULFATE 300 MG/5 ML UDC GT SCH (09:03)
[2016-10-24] MEDS: CARBIDOPA/LEVODOPA 25/100 MG TABLET GT SCH ×3 (09:03→21:22)
[2016-10-24] MEDS: ENOXAPARIN SODIUM 30 MG/0.3 ML SYRINGE SQ SCH (09:04)
[2016-10-24] MEDS: 0.45% NACL 1,000 ML IV SCH (09:05)
[2016-10-24] MEDS: BALSAM PERU/CASTOR OIL 60 GM OINT...G. TP SCH (09:07)
[2016-10-24] MEDS: MUPIROCIN 2% TOPICAL OINTMENT 22 GM TP SCH ×2 (09:07→21:00)
[2016-10-24] MEDS: DOCUSATE SODIUM 100 MG/10 ML UDC GT SCH ×2 (09:09→21:22)
[2016-10-24] MEDS: MULTIVITS W-MIN/FERROUS GLUC 15 ML UDC GT SCH (09:14)
[2016-10-24] MEDS: HYDROCORTISONE SOD SUCC 100 MG/2 ML VIAL IVP SCH (09:32)
--- NOTE | 2016-10-24 09:40 | NUR ---
Dr. Montoya in to see patient.
--- NOTE | 2016-10-24 10:30 | NUR ---
Dr. Holly in to see patient.
--- NOTE | 2016-10-24 12:05 | NUR ---
DISCHARGE PLANNING Faxed referral to [facility] [phone]. Notified Nasim Calderon requesting patient to be evaluated. Will follow up. Addendum: 10/24/16 at 1637 by Mariama Moran DP Spoke with Nasim Calderon patient accepted and pending bed assignment at [facility]. WAP will follow up in AM.
--- NOTE | 2016-10-24 15:25 | NUR ---
Transfer to [facility] Patient transfer to [facility] to room 100 A with continuous monitoring. Report given to Elizabeth Allen RN. No acute distress noted.
--- NOTE | 2016-10-24 15:33 | NUR ---
Notes Wound care completed per wound college and career counselor guidelines. Wound vac in correct placement and settings.
--- NOTE | 2016-10-24 15:33 | NUR ---
Wound Re-Evaluation: Patient received in a [place] bed on an IsoFlex TACOS low air-loss mattress, awake, non-verbal, non-responsive to verbal cues. Skin is poor. Intrinsic Factors that delay wound healing: Diabetes Mellitus, Anemia. Extrinsic factors that decrease wound healing: immobility, very limited turning areas available. Sacral, Coccygeal, and buttocks areas have scar tissue. Wound Assessment: 1) Left Hip: Unstageable Pressure Ulcer, present on admission. Patient is status post surgical debridement with wound vac palcement by Dr. Montoya on 10/23/16. Dressing is not due to be changed until 10/26/16. Recommend: Cleanse wound with normal Saline. Pat dry. Put SurePrep onto carleen-wound. Put Venelex ointment onto wound bed. Place Black Granufoam dressing onto wound bed. Cover with Vac Drape. Lay Vac Drape from wound to anterior thigh, then lay black granufoam and attach it to wound, then lay more Vac Drape on top. Attach suction attachment to thigh, and attach to Wound Vac. Run Wound Vac at 75 mmHg, continuous. Perform wound care q Saturday/Saturday/Saturday, and and needed for dressing soiling or dislodgment. 2) Right Lateral Buttock: Prior Stage 4 Pressure Ulcer, present on admission. 20% yellow tissue, 80% pink tissue. No odor, scant serous drainage. White carleen-wound. Measures 1.2 cm x 1.6 cm x 0.3 cm. 3) Right Buttock, Medial to Wound 2): Unstageable Pressure Ulcer, present on admission. 40% yellow tissue, 60% pink tissue. No odor, no drainage. White carleen-wound. Measures 3.5 cm x 5.5 cm x 0.4 cm. Undermining present from 7-10 o'clock, deepest at 9 o'clock. Recommend: Cleanse wounds with normal saline. Pat dry. Put moisture barrier cream onto carleen-wounds. Put Venelex ointment onto wound beds. Pack wound 3) with 1/4 inch Iodoform. Cover with foam dressings, then transparent dressings. Perform wound care daily and as needed for dressing soiling or dislodgment. 4) Right Buttock, Medial to Wound 2): Area of non-intact skin, medial to Wound 3), present on admission. 100% red tissue. No odor, no drainage. White carleen-wound. Recommend continue: Cleanse wound with normal saline. Pat dry. Put moisture barrier cream onto wound and carleen-wound. Put Venelex ointment onto any portion of wound not covered by moisture barrier cream. Cover with foam dressing, then transparent dressings. Perform wound care daily and as needed for dressing soiling or dislodgment. 5) Left Buttock near Ischium: scar tissue from a previously healed wound of unknown etiology. Area is reopening secondary to tissue weakness and co-morbidities. Visible tissue is red, yellow, and pink tissue, with dark discoloration. No odor, no drainage. Carleen-wound intact. Recommend: Cleanse wound with normal saline. Put moisture barrier cream onto carleen-wound. Put Venelex ointment onto wound beds. Cover with foam dressing. Perform wound care daily and as needed for dressing soiling or dislodgment. 6) Coccygeal area: 100% brown eschar. No odor, scant sanguineous drainage. Periwound intact. Recommend: Cleanse wound with normal saline. Put moisture barrier cream onto carleen-wound. Cover with foam dressing. Perform wound care daily and as needed for dressing soiling or dislodgment. 7) Left Lateral Malleolus: Unstageable Pressure Ulcer, present on admission. 40% yellow tissue, 60% pink tissue. No odor, scant sanguineous drainage. White carleen-wound. Measures 1.5 cm x 1.3 cm. Recommend continue: Cleanse wound with normal saline. Put moisture barrier cream onto carleen-wound. Put Venelex ointment onto wound bed. Cover with foam dressing. Perform wound care daily and as needed for dressing soiling or dislodgment. 8) Left Medial Great Toe: Blanchable redness, present on admission. No odor, no drainage. 9) Left Medial foot, 1st metatarsal head: Blanchable redness, present on admission. No odor, no drainage. Recommend continue: Cover with foam dressing for protection. Change dressing daily, and as needed for dressing soiling or dislodgment. Elevate, offload and float bilateral feet and heels with pillows at all times. Also recommend continue: Reposition patient side to side only every two hours with pillow support, off-load heels in bilateral heel boots, off-load pressure areas with pillows for pressure re-distribution. Do not place patient flat on her back. Perform skin care and monitor skin integrity q shift. Use moisture barrier cream on moisture susceptible areas qid and prn for soiling. Elevate, offload, and float bilateral heels with Heelift Boots. Maintain patient on a Low Air-Loss Mattress. Recommend surgical consult on Bilateral Buttock wounds.
--- NOTE | 2016-10-24 18:17 | NUR ---
Closing Note Patient needs met throughout shift. Hourly rounds completed. Wound vac continues to be in place. Patient on air mattress. Will continue to monitor until patient care is endorsed to oncoming shift nurse.
--- NOTE | 2016-10-24 20:05 | NUR ---
initial note pt. received in bed with eyes closed. non verbal. no s/s of sob or distress. no facial grimacing indicating any pain. pt. receiving breathing tx at this time. PICC line to ALTAGRACIA noted. no redness or swelling to the site. iv fluids infusing well as ordered. g tube feeding infusing well as ordered. will flush g tube Q6 hours as ordered. pt. has a left ankle wound with dressing that is CDI. wounds to sacral area are covered with dressings, will change as needed this shift for soiling or dislodgement. wound vac noted, with 50 ml red drainage noted. martinez catheter draining to gravity with clear yelow urine noted. pt. is on air mattress, and well supported with pillows to offload pressure areas. will turn q2 this shift to prevent skin breakdown. unable to discuss the plan of care due to pt. mental status. safety, fall and contact precautions are in place. call light in reach.
--- NOTE | 2016-10-24 21:00 | NUR ---
MEDS BACTROBAN OINTMENT NOT AVAIL FOR PT. WILL ENDORSE TO DAY NURSE TO OBTAIN MED FROM THE PHARMACY. ALL OTHER SCHEDULED MEDS GIVEN. IV MERREM WAS BROUGHT OVER FROM ICU AND PLACED IN PT. BIN IN MED ROOM.
--- NOTE | 2016-10-24 22:25 | NUR ---
ROUNDS PT. RESTING IN BED WITH EYES OPEN. NO S/S OF SOB OR DISTRESS. NO FACIAL GRIMACING FOR PAIN. IV ABX INFUSING WELL ORDERED NO ADVERSE REACTIONS NOTED. G TUBE FEEDING CONTINUES TO INFUSE WELL. PT. IS WELL SUPPORTED WITH PILLOWS OFFLOADING PRESSURE PRONE AREAS. WILL CONT.TO MONITOR FOR CHANGES. SAFETY AND FALL PRECAUTIONS IN PLACE. CALL LIGHT IN REACH.
[2016-10-25] VITALS: BP 144/51; PULSE 71; RESP 15; TEMP 97; O2SAT 99
--- NOTE | 2016-10-25 | NUR ---
ROUNDS PT. RESTING QUIETLY IN BED AT THIS TIME WITH EYES OPEN. NO S/S OF SOB OR DISTRESS. NO FACIAL GRIMACING FOR PAIN. G TUBE FLUSHED WITH 100 CC FREE WATER, NO RESISTANCE NOTED, FLUSHES WELL. ACCU CHECK DONE, BLOOD SUGAR WNL, NO INSULIN COVERAGE NEEDED PER SLIDING SCALE. PT. REPOSITIONED AND SUPPORTED WELL WITH PILLOWS TO OFFLOAD PRESSURE AREAS. IV FLUIDS CONT. TO INFUSE WELL. GTUBE FEEDING INFUSING WELL. WILL CONT. TO MONITOR FOR ANY CHANGES. SAFETY, FALL AND CONTACT PRECAUTIONS ARE IN PLACE. CALL LIGHT IN REACH.
--- NOTE | 2016-10-25 02:23 | NUR ---
ROUNDS PT.RESTING QUIETLY. NO S/S OF SOB OR DISTRESS. NO FACIAL GRIMACING FOR PAIN. WOUND VAC CONNECTED TO CONT;. SUCTION AT 75MMHG. IV FLUIDS AND G TUBE FEEDING CONT. TO INFUSE WELL. PT. SUPPORTED WELL WITH PILLOWS TO OFFLOAD PRESSURE PRONE AREAS. WILL CONT. TO MONITOR FOR CHANGES. SAFETY AND FALL PRECAUTIONS IN PLACE, CALL LIGHT IN REACH.
[2016-10-25] MEDS: IPRATROPIUM BROM 0.5 MG/2.5 ML VIAL.NEB (ATROVENT) INH SCH ×4 (02:26→20:21)
[2016-10-25] MEDS: LevALBUTEROL HCL 1.25 MG/0.5 ML *CONC.* VIAL.NEB (XOPENEX CONC.) INH SCH ×4 (02:26→20:21)
[2016-10-25] MEDS ORDERED: IPRATROPIUM BROM 0.5 MG/2.5 ML VIAL.NEB (ATROVENT) INH ONE (02:30)
[2016-10-25 03:45] VITALS: BP 157/84; PULSE 77; RESP 20; TEMP 97.2; O2SAT 92
--- NOTE | 2016-10-25 04:30 | NUR ---
ROUNDS PT. RESTING IN BED QUIETLY. NO FACIAL GRIMACING FOR PAIN. NO S/S OF SOB OR DISTRESS. 150 CC EMPTIED FROM COLOSTOMY BAG. PT. REPOSITIONED AND SUPPORTED WELL WITH PILLOWS TO OFFLOAD PRESSURE AREAS. WILL CONT. TO MONITOR FOR CHANGES. SAFETY AND FALL PRECAUTIONS IN PLACE, CALL LIGHT IN REACH.
[2016-10-25] MEDS: MEROPENEM 500 MG in NS 50 ML IV SCH (05:23)
[2016-10-25] MEDS: INSULIN REGULAR, HUMAN 100 UNITS/ML, 10 ML VIAL (novoLIN R) SUBCUT PRN ×2 (05:36→12:52)
--- NOTE | 2016-10-25 06:26 | NUR ---
CLOSING NOTE PT. RESTING IN BED. APPEARS TO BE SCRATCHING HER CHEST. PT. DOES NOT HAVE ANYTHING ORDERED TO RELIEVE ITCHING. THE SCRATCHING IS NEW AND JUST STARTED NOW. WILL ENDORSE TO AM NURSE TO MONITOR AND NOTIFY MD IF IT BECOMES MORE SEVERE. MORNING BLOOD SUGAR WAS CHECKED, BS WAS 197, 2 UNITS OF REGULAR INSULIN GIVEN PER SLIDING SCALE PROTOCOL. G TUBE WAS FLUSHED WITH 100 CC OF FREE WATER, NO RESISTANCE NOTED, FLUSHES WELL. IV FLUIDS CONT. TO INFUSE WELL. NO NEW DRAINAGE NOTED IN WOUND VAC. SAME AMOUNT FROM PREVIOUS SHIFT IN THE DRAIN. PT. HEELS REMAIN ELEVATED ON PILLOWS. ALL NECESSARY NEEDS WERE MET THROUGHOUT THE SHIFT. SAFETY AND FALL PRECAUTIONS WERE MAINTAINED. WILL ENDORSE CARE TO AM NURSE. CALL LIGHT IN REACH. BED IN LOWEST LOCKED POSITION WITH THE BED ALARM ON.
[2016-10-25 07:43] LABS: BASOPHILS # (AUTO) 0.1 K/uL (0.0-0.2); BASOPHILS % (AUTO) 0.4 % (0.0-2.0); EOSINOPHILS # (AUTO) 0.5 K/uL (0.0-0.4); EOSINOPHILS % (AUTO) 3.6 % (0.0-4.0); HEMATOCRIT 27.9 % (36-48); HEMOGLOBIN 8.8 g/dL (12.0-16.0); LYMPHOCYTES # (AUTO) 1.1 K/uL (1.0-5.5); LYMPHOCYTES % (AUTO) 8.3 % (20.5-51.5); MEAN CORPUSCULAR HEMOGLOBIN 26 pg (27-31); MEAN CORPUSCULAR HGB CONC 32 % (32-36); MEAN CORPUSCULAR VOLUME 84 fL (79.0-98.0); MONOCYTES # (AUTO) 0.5 K/uL (0.0-1.0); NEUTROPHILS # (AUTO) 10.9 K/uL (1.8-7.7); NEUTROPHILS % (AUTO) 83.7 % (40.0-70.0); PLATELET COUNT (AUTO) 462 K/uL (130-430); RED BLOOD CELL COUNT(AUTO) 3.33 MIL/uL (4.2-6.2); RED CELL DISTRIBUTION WIDTH 20.3 % (9.0-15.0); WHITE BLOOD COUNT (AUTO) 13.1 K/uL (4.8-10.8)
[2016-10-25 08:09] LABS: ANION GAP 1 (5-15); CALCIUM 8.5 mg/dL (8.4-11.0); CHLORIDE 96 mmol/L (98-107); GLUCOSE 221 mg/dL (70-99); POTASSIUM 4.1 mmol/L (3.5-5.1); SODIUM SERUM 133 mmol/L (136-145); UREA NITROGEN, BLOOD 14 mg/dL (8-21)
[2016-10-25 08:15] VITALS: BP 139/47; PULSE 78; RESP 16; TEMP 97; O2SAT 98
--- NOTE | 2016-10-25 08:15 | NUR ---
INITIAL ROUNDS Received pt awake, non-verbal, no s/s resp distress, no s/s pain or discomfort. Contact isolation precautions in place. IVF infusing well to ALTAGRACIA PICC line at ordered rate with no s/s infiltration to site. Diabetisource infusing well via G-tube at ordered rate with no residual noted. Drew draining to gravity. Pt has wound vac to left hip with good suction. Noted multiple dressings clean, dry and intact to buttocks/coccyx area and LLE. Pt on air mattress. Will reposition pt Q 2hrs/PRN with pillow support and heels off-loaded for skin care and comfort. Side rails up x3, bed alarm on for safety.
[2016-10-25] MEDS ORDERED: HYDROCORTISONE SOD SUCC 100 MG/2 ML VIAL IVP SCH (09:00)
[2016-10-25] MEDS: 0.45% NACL 1,000 ML IV SCH (09:00)
[2016-10-25] MEDS: POTASSIUM CHLORIDE 20 MEQ/PKT PACKET GT SCH ×2 (09:49→20:55)
[2016-10-25] MEDS: BISACODYL 10 MG/SUPPOSITORY RC SCH (09:49)
[2016-10-25] MEDS: ASCORBIC ACID 500 MG TABLET GT SCH (09:49)
[2016-10-25] MEDS: ENOXAPARIN SODIUM 30 MG/0.3 ML SYRINGE SQ SCH (09:49)
[2016-10-25] MEDS: AMIODARONE HCL 200 MG TABLET GT SCH (09:50)
[2016-10-25] MEDS: CARBIDOPA/LEVODOPA 25/100 MG TABLET GT SCH ×2 (09:50→20:55)
[2016-10-25] MEDS: FAMOTIDINE 20 MG TABLET GT SCH ×2 (09:51→20:55)
[2016-10-25] MEDS: DOCUSATE SODIUM 100 MG/10 ML UDC GT SCH ×2 (09:51→20:54)
[2016-10-25] MEDS: MULTIVITS W-MIN/FERROUS GLUC 15 ML UDC GT SCH (09:52)
[2016-10-25] MEDS: FERROUS SULFATE 300 MG/5 ML UDC GT SCH (09:52)
--- NOTE | 2016-10-25 10:27 | NUR ---
DISCHARGE PLANNING Patient assigned to room 312B at [facility] RN to report [phone] bed available after 7pm. Ordered Radiology CD. Called JAMES Geeta Agatha [phone] and [phone] left voice message requesting return call back. Placed transportation packet in nurse station. GUALBERTO Jerez made aware. Addendum: 10/25/16 at 1137 by Mariama Moran DP Received return call back from Geeta Snider who is agreeable with patient discharge and transfer to [facility]. Called [facility] ambulance [phone] spoke with Gertrude cordova ACLS (Welder Fitter Helper) transport mixing picker tender 8pm.
--- NOTE | 2016-10-25 10:30 | NUR ---
ROUNDS Pt resting quietly in bed with no s/s resp distress, no s/s pain or discomfort. All precautions remain in place.
[2016-10-25 12:03] VITALS: BP 150/59; PULSE 85; RESP 18; TEMP 96.6; O2SAT 95
[2016-10-25] MEDS: MUPIROCIN 2% TOPICAL OINTMENT 22 GM TP SCH ×2 (12:36→20:56)
--- NOTE | 2016-10-25 12:55 | NUR ---
ROUNDS/MED Pt resting quietly in bed with no s/s resp distress, pt given Insulin as ordered per sliding scale. Pt repositioned for comfort and skin care. All precautions remain in place.
--- NOTE | 2016-10-25 13:16 | NUR ---
NUTRITION F/U Admitting Diagnosis Septic shock, acute respiratory failure, UTI, ARF, severe malnutrition Reviewed Pertinent Medical/Surgical Hx Medical Record Medical History Comment: Parkinson Dz, dementia, stage 4 decubitus ulcer of coccyx, DM, severe malnutrition, chronic anemia, GT placement, diverting colostomy per MD notes Pt also seen with S/P Septic shock, MDR Acinetobacter Septisemia 2/2 Pneumonia, MRSA Colonization, infected decub ulcers, Respiratory failure, CRD Pseudomonas Pneumonia vs Colonization. per MD notes 10/23/16 Subjective Information Physical: Pt seen resting in bed, awake but non-verbal, at time of visit. No caregivers/family present. Pt appeared undernourished for height, exhibiting physical signs of malnutrition including moderately sunken orbital regions and moderate temporal wasting. Pt was extubated 10/22, currently on nasal cannula. GI Integrity: Per nursing assessment, abdomen is soft and non-distended with active bowel sounds. BM x1 today, 150 ml stool via colostomy bag. Tube Feeding: EN formula seen running as per MD orders with 759 currently infused. Per RN, 0 ml residuals collected this AM, pt is tolerating well. Plans/Procedures: DC planning - pt has been assigned to [facility]. Per MD, continue current meds. Pt is s/p 2 days debridement of L hip stage 4 decubitus ulcer and application of wound VAC. Current Diet Order/Nutrition Support Diabetisource AC at 40 ml/hr, Prosource TID, Free Water Flush: 100 ml Q6h via GT Patient/Significant Other Unable To Verbalize Education Provided Not Indicated Pertinent Medications Solu-cortef, morphine, Potassium chloride, ferrous sulfate oral liquid, VIT C, pepcid, colace, SSI, fleet enema, MOM, dulcolax suppository, gentamycin per pharmacy, zinc sulfate Pertinent Labs 10/25/16: WBC 13.1 H, Hgb 8.8 L, Hct 27.9 L, BG 221 H, BNP 423 H 10/24/16: BNP 423 H Height (Feet) 5 feet Height (Inches) 3.00 inches Weight (Pounds) 106 pounds (admission) 10/18/16: 112.5 lb, 51 kg (bedscale) 10/20/16: 109 lb, 50 kg (bedscale) -- note that pt is on an air mattress 10/25/16: 102 lb, 46 kg (bedscale) Weight (Calculated Kilograms) 48.056350 kilograms Patient Weight 48.081 kg Body Mass Index (modified) 18.16 kg/m2 %IBW 88 [place]/Adjusted Body Weight IBW: 116 lb, 52 kg Recent Weight Change Unknown Last BM October 25, 2016 - 150 ml via colostomy bag Food Allergies Unknown Usual Diet At Home Oc Maier: Glucerna 1.2 at 55 cc/hr x20 hours, ProStat BID Skin Integrity Comment: Per skin assessment, Abdulkadri scale: 10 (10/24/16) Wound assessment (10/24/16) Wound Assessment: 1) Left Hip: Unstageable Pressure Ulcer, present on admission. Patient is status post surgical debridement with wound vac palcement by Dr. Montoya on 10/23/16. 2) Right Lateral Buttock: Prior Stage 4 Pressure Ulcer, present on admission. 3) Right Buttock, Medial to Wound 2):Unstageable Pressure Ulcer, present on admission. 4) Right Buttock, Medial to Wound 2): Area of non-intact skin, medial to Wound 3), present on admission.. 5) Left Buttock near Ischium: Scar tissue from a previously healed wound of unknown etiology. 6) Coccygeal area: 100% brown eschar. 7) Left Lateral Malleolus: Unstageable Pressure Ulcer, present on admission. 8) Left Medial Great Toe: Blanchable redness, present on admission. 9) Left Medial foot, 1st metatarsal head: Blanchable redness, present on admission. Estimated Energy Expenditure (kcals/day) 7334-7993 kcal/day (BEE x 1.2-1.5 for severe malnutrition and wound healing) Estimated Protein Required (g/day) 78-104 gm/day (1.5-2 gm/kg IBW for sepsis, wound healing, severe malnutrition) Estimated Fluid Required (l/day) 1.5-1.8 L/day (30-35 ml/kg IBW for geriatric maintenance) Problem/Etiology/Signs/Symptoms Inadequate nutritional intakes related to increased nutritional needs for metabolic demands as evidenced by no currently infusing nutrition support to meet estimated nutritional requirements. *resolved Altered nutrition-related labs related to endocrine dysfunction as evidenced by elevated BG and POC BG labs. *ongoing Increased nutritional needs related to metabolic demands for healing and malnutrition as evidenced by multiple wounds, recent debridement of decubitus ulcer, and physical signs of malnutrition including moderately sunken orbital regions and moderate temporal wasting. Expected Outcomes/Goals 1. Monitor tolerance of EN with goal of meeting at least 75% of estimated needs with acceptable tolerance 2. Labs trending within normal limits 3. Maintain weight status, weight gain 4. Maintain normal GI function 5. Improved skin integrity, wound healing Dietitian Recommendations * Continue Diabetisource AC at 40 m/hr, ProSource TID, free water flush 100 ml q6h via GT Provides: 1332 kcal, 103 gm protein, and 1183 ml free water per day Meets: 85% of high end of estimated calorie needs and 99% of high end of estimated protein needs Comment [place] reviewed/approved wedding planning internship's note. KINGSTON AMADOR. Follow Up High Risk: F/U in 2-3 days. Follow up by: October 28, 2016 Addendum: 10/25/16 at [address] [place] reviewed/approved wedding planning internship's note. KINGSTON AMADOR
--- NOTE | 2016-10-25 13:44 | NUR ---
PT CONDITION Called in by RT Eugenia in the room the check patient. Pt is diaphoretic, audible crackles can be heard, pt rolling eyes upward. bp 160/70, pr 89, o2 sat 100 % RR 19 BS 249. Breathing treatment administered by RT, suctioned secretions. pt respiratory status appeared to improve. will continue to monitor
--- NOTE | 2016-10-25 14:00 | NUR ---
ROUNDS/RT Spoke with Jennifer RT and she informed me of need to suction via pt's nose large amount of thick sputum and that pt was diaphoretic-voting machine repairer aware and checked on pt. Pt now sitting up in bed with no further s/s resp distress. Will monitor pt closely. All precautions remain in place.
--- NOTE | 2016-10-25 15:50 | NUR ---
ROUNDS Pt having bed bath by CYCLE LIAISON. No s/s resp distress, no s/s pain or discomfort. All precautions remain in place.
[2016-10-25 16:56] VITALS: BP 132/59; PULSE 81; RESP 18; TEMP 97.8; O2SAT 94
[2016-10-25] MEDS: BALSAM PERU/CASTOR OIL 60 GM OINT...G. TP SCH (17:30)
--- NOTE | 2016-10-25 17:30 | NUR ---
WOUND CARE Wound Vac removed from left hip. Area cleansed with normal saline, wound measured 5 cm x 6 cm with tunneling noted at 9 o'clock and 12 o'clock. Wound bed 90% pink tissue, 10% yellow tissue, no odor, no necrotic tissue noted. Periwound pink-moisture barrier cream applied to area. Venelex cream applied to wound bed, Tender wet placed in wound bed, covered with foam dressing and secured in place with Tegaderm. *Left buttock wound cleansed with normal saline, wound bed 100% pink tissue, periwound pink, slightly foul odor noted. Moisture barrier cream applied to area, Venelex cream applied to wound bed, wound covered with foam dressing and secured in place with Tegaderm Right lateral buttocks wound cleansed with normal saline, wound bed 100% yellow tissue, periwound pink. Moisture barrier cream applied to periwound, Venelex applied to wound bed, wound covered with foam dressing, secured in place with Tegaderm. Right medial buttocks cleansed with normal saline, wound bed 20% pink tissue & 80% yellow tissue, Periwound pink-moisture barrier cream applied to area. Venelex cream applied to wound bed, wound covered with foam dressing and secured in place with Tegaderm. Left lateral ankle wound cleansed with normal saline, Venelex cream applied to wound bed, moisture barrier cream applied to periwound, wound covered with foam dressing. Wound bed 25% pink tissue, 75% yellow tissue, periwound pink. Right knee dressing removed-noted slight redness. area cleansed with normal saline, foam dressing applied. Colostomy Care: Old colostomy removed, new colostomy bag place. Noted stoma pink. G-tube site dressing changed, area cleansed with normal saline, clean, dry dressing applied and secured in place with paper tape. Noted slight pinkness to area with some drainage and odor.
--- NOTE | 2016-10-25 19:36 | NUR ---
REPORT CALLED Report called to Feliz BURCIAGA at [facility], current status reviewed, wounds explained.
--- NOTE | 2016-10-25 19:40 | NUR ---
CLOSING NOTE Pt resting quietly in bed with no s/s resp distress-suctioned small amount of thick, beige mucus. Endorsed to Lsea BURCIAGA shift supervisor melting nurse. Contact isolation precautions maintained throughout shift. Aspiration, skin and safety precautions remain in place.
[2016-10-25 19:49] VITALS: BP 177/67; PULSE 78; RESP 18; TEMP 96.6; O2SAT 99
[2016-10-25] MEDS: MORPHINE 2 MG/ML INJ. SYRINGE IVP PRN (20:08)
--- NOTE | 2016-10-25 20:28 | NUR ---
STARTING NOTE CASHIER TICKET SELLING Patient in bed resting. She appears to be in pain and she is grinding her teeth and moving restlessly. BP 177/76, Morphine 2 mg IV push was administered by me. No other S/S of distress noted. SaO2 99%. Report received from the day shift nurse Meri BURCIAGA. [facility]. Fall precautions in place.
[2016-10-25] MEDS ORDERED: COLISTIMETHATE SODIUM 75 MG in NS 50 ML IV SCH (21:00)
== END 2016-10-25 21:25 | DRG 853 ==
LOC: SED 08:10 → SIC 10:41 → STU 10-24 14:06
PROVIDERS: ADMIT Family Medicine; ATTEND Family Medicine
PROC: 5A1955Z Respiratory Ventilation, Greater than 96 Consecutive Hours (ICD-10-PCS; principal; 2016-10-13)
PROC: 0BH17EZ Insertion of Endotracheal Airway into Trachea, Via Natural or Artificial Opening (ICD-10-PCS; 2016-10-13)
PROC: 02HV33Z Insertion of Infusion Device into Superior Vena Cava, Percutaneous Approach (ICD-10-PCS; 2016-10-13)
PROC: B548ZZA Ultrasonography of Superior Vena Cava, Guidance (ICD-10-PCS; 2016-10-13)
PROC: 0QB10ZZ Excision of Sacrum, Open Approach (ICD-10-PCS; 2016-10-23)
DX: A41.9 Sepsis, unspecified organism (principal); R65.21 Severe sepsis with septic shock; E43 Unspecified severe protein-calorie malnutrition; L89.154 Pressure ulcer of sacral region, stage 4; J96.01 Acute respiratory failure with hypoxia; J69.0 Pneumonitis due to inhalation of food and vomit; N39.0 Urinary tract infection, site not specified; N17.9 Acute kidney failure, unspecified; Z68.1 Body mass index [BMI] 19.9 or less, adult; E87.0 Hyperosmolality and hypernatremia; E86.0 Dehydration; E11.65 Type 2 diabetes mellitus with hyperglycemia; I48.0 Paroxysmal atrial fibrillation; F02.80 Dementia in other diseases classified elsewhere, unspecified severity, without behavioral disturbance, psychotic disturbance, mood disturbance, and anxiety; G20 Parkinson's disease; E11.22 Type 2 diabetes mellitus with diabetic chronic kidney disease; D64.9 Anemia, unspecified; E78.5 Hyperlipidemia, unspecified; I12.9 Hypertensive chronic kidney disease with stage 1 through stage 4 chronic kidney disease, or unspecified chronic kidney disease; N18.9 Chronic kidney disease, unspecified; R13.10 Dysphagia, unspecified; B96.89 Other specified bacterial agents as the cause of diseases classified elsewhere; B96.4 Proteus (mirabilis) (morganii) as the cause of diseases classified elsewhere; J44.9 Chronic obstructive pulmonary disease, unspecified; Z86.73 Personal history of transient ischemic attack (TIA), and cerebral infarction without residual deficits; Z93.1 Gastrostomy status; Z93.3 Colostomy status; Z88.6 Allergy status to analgesic agent; Z79.899 Other long term (current) drug therapy; Z22.322 Carrier or suspected carrier of Methicillin resistant Staphylococcus aureus
CPT/HCPCS: 36415; 36600; 71010; 74240-TC; 80048; 80053; 80170-TC; 81000-TC; 82803-TC; 82962; 83605; 83735-TC; 83880; 84100-TC; 84484; 85007; 85025; 85027; 85610-TC; 87040-TC; 87070-TC; 87081; 87086; 87186-TC; 87205-TC; 93005; 94002; 94003; 94640; 94760; 99291; A5061; C1751; J0330; J0770; J1580; J1650; J1720; J1815; J1940; J2060; J2185; J2270; J2543; J2704; J3370; J3475; J3480; J3490; J7030; J7050; Q9963

== ENCOUNTER 2017-02-14 21:49 | Inpatient (IN) | payer OTHER, MEDICAID ==
[~2017-02-14] VITALS: Ht 162.6 cm; Wt 54.0 kg
[~2017-02-14 21:49] MED LIST changes: -ACET-2165 PO; +ALBU2.5V7 INH; +AMIN30LI2 GT; +AMIO200T2 GT; +ASCO500T10 GT; -CAT.1 GT; -CLON0.5T4 PO; -CLON1POW; -DEXT1CAP3 PO; -DOCU-144 PO; -DONE10TA4 PO; +DULR10 RC; -ESCI10TA PO; +FAMO40TA7 GT; -GLU500 PO; -INSU100V11 SQ; -INSU100V7 SUBCUT; +IPRA4AER INH; -LEVE500T77 GT; -LIP20 PO; -MAGN400O4 PO; -MEGE400O2 PO; -MEMA10TA12 PO; -MEMA5TAB PO; -MULT-1117; +NA P118E RC; -OLAN15TA3 PO; -OLAN7.5T3 PO; -PROR4 PO; -RISP1TAB27 PO; -RISP3TAB8 PO; -SSNOVOLOG SUBCUT; -TRIH2TAB3 PO; -VALS160T2; -VIT C GT; -[UNRECOGNIZED DRUG - CODE] GT
--- NOTE | 2017-02-14 21:50 | NUR ---
Patient to ER bed 7 to gown for evaluation. Side rails up. Report given to Valerie BURCIAGA.
--- NOTE | 2017-02-14 22:00 | NUR ---
Patient sent to ER from [facility] with complaint of SOB. Per EMT patient was evaluated at [facility] at 3 pm and found to be in respiratory distress. In ER Patient Is on non-rebreather mask oxigenating 80-92%. Patient is non-verbal, bedbound, severe muscle atrophy noted, ronchi throughout, G-tube present (patency not verified), abdomen hard distended with large diffuse SQ hematoma noted on right side. Colostomy bag present left mid abdomen draining loose dark stool. Patient arrived with Drew catheter which was not attached to the patient. Patient is laying on urine saturated linen. Large aprox 10 cm diameter 3cm depth open wound on left hip. Right buttock pressure wound, left lateral ankle pressure wound. Will continue to monitor.
[2017-02-14 22:07] VITALS: BP_SYST 130
[2017-02-14] MEDS ORDERED: NOR10 PO (22:20)
--- NOTE | 2017-02-14 22:20 | NUR ---
Patient cleaned. Positioned for comfort.
[2017-02-14] MEDS ORDERED: CHLO473M5 GT (22:22)
[2017-02-14] MEDS ORDERED: FAMO20TA8 PO (22:24)
[2017-02-14] MEDS ORDERED: NA P118E RC (22:25)
[2017-02-14] MEDS ORDERED: HEPA500014 SUBCUT (22:26)
[2017-02-14] MEDS ORDERED: INSU100V11 SQ ×2 (22:27→22:28)
[2017-02-14] MEDS ORDERED: MAGN400O4 GT (22:29)
[2017-02-14] MEDS ORDERED: PRED20TA PO (22:32)
[2017-02-14] MEDS ORDERED: IPRA3AMP9 INH (22:33)
[2017-02-14] MEDS ORDERED: ACET-1010 PO (22:35)
[2017-02-14] MEDS ORDERED: CRAN1CAP5 GT (22:38)
[2017-02-14] MEDS ORDERED: LACT237L26 PO (22:40)
--- NOTE | 2017-02-14 22:50 | NUR ---
# 16 FR Martinez catheter with use of sterile technique. Immediate return of 200 cc cloudy pale urine noted. Bedside drainage bag placed below level of bladder. Urine sample collected and sent to lab. Pt tolerated procedure well. Patient arrived with martinez in place, changed due to standard of practice prior to admission. Patient unable to toilet self.
[2017-02-14] MEDS ORDERED: NACL 0.9% 1,000 ML IV ONE (23:01)
--- NOTE | 2017-02-14 23:05 | NUR ---
ER MD Triana at bedside evaluating the patient
[2017-02-14] MEDS ORDERED: ALBUTEROL SULFATE 0.083% 2.5 MG/3 ML VIAL.NEB IH ONE (23:15)
[2017-02-14] MEDS ORDERED: IPRATROPIUM BROM 0.5 MG/2.5 ML VIAL.NEB (ATROVENT) IH ONE (23:15)
--- NOTE | 2017-02-14 23:19 | NUR ---
Corporate Buyer at bedside for blood draw. Patient identified x2
--- NOTE | 2017-02-14 23:27 | NUR ---
RT at bedside for ABG draw.
[2017-02-14 23:33] LABS: BILIRUBIN,URINE NEGATIVE (NEGATIVE); BLOOD, URINE 3+ (NEGATIVE); CLARITY/URINE CLOUDY (CLEAR); COLOR,URINE YELLOW (YELLOW); GLUCOSE,URINE NEGATIVE (NEGATIVE); KETONES,URINE NEGATIVE (NEGATIVE); LEUKOCYTE ESTERASE ,URINE 3+ (NEGATIVE); NITRITE, URINE NEGATIVE (NEGATIVE); PH,URINE 8.5 (5.0-8.0); PROTEIN URINE 3+ (NEGATIVE); UROBILINOGEN,URINE 0.2 (0.2-1.0)
[2017-02-14 23:36] LABS: BACTERIA,URINE MODERATE /HPF (None Seen); MUCUS,URINE None Seen /LPF (None Seen); TRIPLE PHOSPHATE CRYSTAL,UR 0-10 /HPF (None Seen); WBC,URINE >100 /HPF (0-3)
[2017-02-14 23:44] LABS: HEMATOCRIT 42.3 % (36-48); HEMOGLOBIN 13.9 g/dL (12.0-16.0); MEAN CORPUSCULAR HEMOGLOBIN 30 pg (27-31); MEAN CORPUSCULAR HGB CONC 33 % (32-36); MEAN CORPUSCULAR VOLUME 90 fL (79.0-98.0); PLATELET COUNT (AUTO) 501 K/uL (130-430); RED BLOOD CELL COUNT(AUTO) 4.71 MIL/uL (4.2-6.2); RED CELL DISTRIBUTION WIDTH 14.6 % (9.0-15.0); WHITE BLOOD COUNT (AUTO) 27.8 K/uL (4.8-10.8)
--- NOTE | 2017-02-14 23:46 | NUR ---
Received order for PICC line access. Picc line upper left arm, dressing is clean. PICC line patent, flusched with 20ml NS. Unable to obtain blood for LAB from the PICC. MD & LAB aware.
[2017-02-14 23:53] LABS: ANION GAP 8 (5-15); CALCIUM 9.9 mg/dL (8.4-11.0); CHLORIDE 103 mmol/L (98-107); CREATININE 1.47 mg/dL (0.55-1.30); GLUCOSE 205 mg/dL (70-99); POTASSIUM 5.4 mmol/L (3.5-5.1); SODIUM SERUM 139 mmol/L (136-145); UREA NITROGEN, BLOOD 64 mg/dL (8-21)
[2017-02-14 23:58] LABS: ALANINE AMINOTRANSFERASE 23 U/L (12-78); ALBUMIN 2.9 g/dL (3.4-4.8); ASPARTATE AMINOTRANSFERASE 27 U/L (10-37); TOTAL BILIRUBIN 0.4 mg/dL (0.0-1.0)
[2017-02-15] VITALS (18 sets, daily range): BP systolic 100–135
[2017-02-15 00:17] LABS: BAND % (MANUAL) 10 % (0-6); LYMPHOCYTES % (MANUAL) 4 % (20-46); MONOCYTES % (MANUAL) 3 % (0-11)
[2017-02-15 00:18] LABS: BASOPHILS % (MANUAL) 0 % (0-2); EOSINOPHILS % (MANUAL) 1 % (0-7); METAMYELOCYTES % 2 % (0-0)
[2017-02-15] MEDS ORDERED: LEVOFLOXACIN 500 MG/D5W 100 ML IV ONE (00:30)
[2017-02-15] MEDS ORDERED: LevALBUTEROL HCL 1.25 MG/0.5 ML *CONC.* VIAL.NEB (XOPENEX CONC.) INH ONE (00:30)
--- NOTE | 2017-02-15 00:33 | NUR ---
RT at bedside for second breathing treatment
[2017-02-15] MEDS ORDERED: MEROPENEM 1 GM IVPB PREMIX 50 ML IV ONE (00:45)
--- NOTE | 2017-02-15 00:47 | NUR ---
Zbigniew stoped per MD Triana order.
--- NOTE | 2017-02-15 01:00 | NUR ---
Received ICu admission orders from DR Teran. No beds available in ICU. Patient in ER HOLD
[2017-02-15] MEDS ORDERED: MEROPENEM 500 MG VIAL IV ONE (01:06)
--- NOTE | 2017-02-15 01:10 | NUR ---
Patient is in ER ICU HOLD. Charge, MD & supervisor pyrotechnic loading aware.
--- NOTE | 2017-02-15 01:11 | NUR ---
Patient will be admitted to care of Dr Tavera. Admitted to ICU unit. Will go to room - no beds available. Patient is held in ER. Belongings list completed. Summary report printed. Report will be given at bedside.
[2017-02-15] MEDS ORDERED: ALBUTEROL SULFATE 0.083% 2.5 MG/3 ML VIAL.NEB INH PRN (01:30)
[2017-02-15] MEDS ORDERED: MILK OF MAGNESIA 30 ML UDC GT PRN (01:30)
[2017-02-15] MEDS ORDERED: ACETAMINOPHEN 500 MG TABLET PO PRN (01:30)
[2017-02-15] MEDS ORDERED: BISACODYL 10 MG/SUPPOSITORY RC PRN (01:30)
[2017-02-15] MEDS ORDERED: ACETAMINOPHEN 650 MG/20.3 ML UDC GT PRN (01:30)
[2017-02-15] MEDS ORDERED: NA PHOS,M-B/NA PHOS,DI-BA 118 ML (FLEET ENEMA) RC PRN (01:30)
[2017-02-15] MEDS ORDERED: MILK OF MAGNESIA 30 ML UDC PO PRN ×2 (01:30)
--- NOTE | 2017-02-15 01:31 | NUR ---
Colostomy bag changed.
[2017-02-15 02:03] LABS: INR 0.9 (0.8-1.2); PROTHROMBIN TIME 10.1 SECS (9.5-12.5)
[2017-02-15] MEDS: 0.45% NACL 1,000 ML IV SCH ×3 (02:10→15:58)
--- NOTE | 2017-02-15 02:10 | NUR ---
RT at bedside for deep succtioning.
--- NOTE | 2017-02-15 02:43 | NUR ---
Patient calm in bed, no signs of acute distress.
--- NOTE | 2017-02-15 02:50 | NUR ---
Patient moved to ER bed 1. Bed changed to ICU bed.
--- NOTE | 2017-02-15 02:52 | NUR ---
Glass Tinter at bedside for 2nd lactic blood draw. Patient identified.
--- NOTE | 2017-02-15 03:16 | NUR ---
SPOKE WITH LEAH FOR CONSULT WITH DR BAILEY .
--- NOTE | 2017-02-15 03:34 | NUR ---
Medicated per MD orders. IVF infusing with no s/s of infiltration at this time. Will cont to monitor
[2017-02-15] MEDS: INSULIN REGULAR, HUMAN 100 UNITS/ML, 10 ML VIAL (novoLIN R) SUBCUT PRN ×3 (04:15→18:06)
--- NOTE | 2017-02-15 04:22 | NUR ---
Drew Cath changed to 18F. Patient cleaned, bed linnen changed.
--- NOTE | 2017-02-15 04:46 | NUR ---
Pressure wounds clensed with NS and Opti-foam dressing applied. Wounds on left hip, coxis, right buttock.
--- NOTE | 2017-02-15 05:47 | NUR ---
Patient asleep. No signs of acute distress.
--- NOTE | 2017-02-15 06:26 | NUR ---
RT at bedside for breathing treatment
[2017-02-15] MEDS: IPRATROPIUM/ALBUTEROL SULFATE 3 ML AMPUL.NEB INH PRN ×2 (06:35→21:10)
--- NOTE | 2017-02-15 06:51 | NUR ---
Transfer to ICU2 via ACLS protocol. Licensed nurse present. IV present no signs or symptoms of infiltration.
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
[2017-02-15] MEDS ORDERED: MEROPENEM 1 GM IVPB PREMIX 50 ML IV SCH (09:00)
[2017-02-15] MEDS ORDERED: MEROPENEM 1 GM in NS 100 ML IV SCH (09:00)
[2017-02-15] MEDS: MULTIVITS W-MIN/FERROUS GLUC 15 ML UDC GT SCH (09:28)
[2017-02-15] MEDS: CHLORHEXIDINE GLUCONATE 15 ML/DOSE, 480 ML MM SCH ×2 (09:28→20:58)
[2017-02-15] MEDS: AMIODARONE HCL 200 MG TABLET GT SCH (09:29)
[2017-02-15] MEDS: DOCUSATE SODIUM 100 MG/10 ML UDC GT SCH ×2 (09:29→20:53)
[2017-02-15] MEDS: HYDROcodone/ACETAMIN 5-325 MG TAB (NORCO/ VICODIN) GT SCH ×2 (09:30→20:53)
[2017-02-15] MEDS: FAMOTIDINE 20 MG TABLET PO SCH (09:30)
[2017-02-15] MEDS: PREDNISONE 20 MG TABLET PO SCH (09:30)
[2017-02-15] MEDS: ASCORBIC ACID 500 MG TABLET GT SCH (09:30)
[2017-02-15] MEDS: amLODIPine BESYLATE 10 MG TABLET PO SCH (09:30)
[2017-02-15] MEDS: HEPARIN SODIUM,PORCINE 5000 UNITS/ML VIAL SUBCUT SCH ×2 (09:40→20:57)
--- NOTE | 2017-02-15 11:40 | NUR ---
TRANSFER OF CARE TRANSFERRED CARE OF PT TO GUALBERTO ISAACS. SHE WILL ASSUME CARE D/T STAFF CHANGES. REPORT GIVEN. ALL QUESTIONS ANSWERED.
--- NOTE | 2017-02-15 11:50 | NUR ---
ASSUMPTION OF CARE RECEIVED REPORT FROM RIDDHI BURCIAGA. PT IN BED WITH EYES CLOSED, RISE AND FALL OF CHEST NOTED. VSS, SR ON MONITOR. NO SIGNS DISTRESS NOTED. NONREBREATHER AT 15L, 02 SAT 100%. GT CLAMPED. ROTH IN PLACE DRAINING YELLOW CLOUDY URINE INTO BAG. 1/2 NS INFUSING AT 150ML/HR THROUGH YASIR PICC. BED IN LOWEST POSITION, HOB ELEVATED, CALL LIGHT IN REACH. WILL CONTINUE TO MONITOR.
--- NOTE | 2017-02-15 12:07 | NUR ---
Social Service Note: [employer] received referral from nursing assessment; [facility] has asked CM director to contact Oc Maier for documentation of wound care due to pt's wounds. [facility] has also asked wound care nurse to evaluate pt's wounds and give [employer] an update prior to any reporting of pt's wounds.
--- NOTE | 2017-02-15 12:15 | NUR ---
ORAL CARE ORAL CARE/SUCTIONING PERFORMED. PT TOLERATED WELL. WILL CONTINUE TO MONITOR.
--- NOTE | 2017-02-15 15:30 | NUR ---
HERE DR ALVARADO HERE TO EVALUATE PT. MADE AWARE OF POTASSIUM LEVEL 5.4. ORDERS RECEIVED FOR TUBE FEEDING: DIABETISOURCE AC.
--- NOTE | 2017-02-15 15:38 | NUR ---
RT RT PLACED PT ON OXIMIZER 4L PER ORDERS BY DR ALVARADO. WILL MONITOR FOR PT RESPONSE.
--- NOTE | 2017-02-15 16:30 | NUR ---
Wound Evaluation: Late note for 1630 secondary to patient care. Wound Consult ordered by Dr. Teran. Thank you, Dr. Teran, for the consult. Patient received in [place] bed with an IsoFlex TACOS mattress, awake, non-verbal, non-responsive to verbal cues. Skin is poor. Past medical history: Diabetes Mellitus, Hypertension, Advanced Dementia, Parkinson's Disease, Hyperlipidemia, recurrent UTI's, Dysphagia, on G-Tube feeding, Malnutrition, prior Stage IV Decubitus Ulcer and multiple Stage II and III decubitus ulcers. Labs: WBC 27.8, RBC 4.71, hemoglobin 13.9, hematocrit 42.3, Platelets 501, potassium 5.4, BUN 64, creatinine 1. 47, glucose 205, albumin 2.9, alkaline phosphatase 243, BNP 168, PTT 18.3. Blood Culture x 2, MRSA Screen, Urine Culture, Wound Culture results in progress. Intrinsic Factors that delay wound healing: Diabetes Mellitus, Anemia. Extrinsic factors that decrease wound healing: immobility, very limited turning areas available. Sacral, Coccygeal, Hips, and buttocks areas have scar tissue. Wound Assessment: 1) Left Hip: Unstageable Pressure Ulcer, present on admission. Wound bed is 60% pink tissue, 40% yellow tissue. Mild odor, scant yellow purulent drainage. Carleen-wound and surrounding tissue has red and dark discoloration room 1-2 o'clock. Measures 7.4 cm x 7.0 cm x 2.7 cm. Undermining present from 8-11 o'clock, deepest 1.9 cm at 8 o'clock. Recommend: Cleanse wound with normal saline. Put calmoseptine cream onto carleen-wound. Put Venelex ointment onto wound bed. Place two 1.6 inch tender wet dressings into wound cavity. Cover with foam dressings, then transparent dressings. Perform wound care daily and as needed for dressing soiling or dislodgment. 2) Left Buttock near Ischium: Scar tissue with erythema and maceration, present on admission. Recommend: Cleanse wound with normal saline. Pat dry. Put calmoseptine cream onto carleen-wound. Put calcium alginate dressing onto wound bed. Cover with foam dressing, then transparent dressing. Perform wound care daily and as needed for dressing soiling or dislodgment. 3) Right Hip: Stage 4 pressure ulcer, present on admission. Wound bed is 90% yellow slough, 10% black tissue. Mild odor, small yellow purulent drainage. Periwound has erythema and maceration. Measures 1.2 cm x 1.9 cm by 1.3 cm. 100% undermining present from 11-5 o' clock, deepest 2.3 cm at 11 o'clock. Bone (hard feel) is palpable with cotton tipped applicator. Recommend: Cleanse wound with normal saline. Pat dry. Put calmoseptine cream onto carleen-wound. Put Venelex ointment onto wound bed. Pack wound with 1/4 inch iodoform packing strip Cover with foam dressing, then transparent dressing. Perform wound care daily and as needed for dressing soiling or dislodgment. 4) Right Hip, Superior to Wound 3): Pressure ulcer, present on admission. Wound bed is 100% dark pink tissue. No odor, no drainage. Measures 0.5 cm x 0.4 cm x 0.2 cm. Recommend: Cleanse wound with normal saline. Pat dry. Put calmoseptine cream onto carleen-wound. Put Venelex ointment onto wound bed. Cover with foam dressing, then transparent dressing. Perform wound care daily and as needed for dressing soiling or dislodgment. 5) Right Buttock near Ischium: Erythema and maceration, present on admission. Recommend: Cleanse wound with normal saline. Pat dry. Put calmoseptine cream onto carleen-wound. Put calcium alginate dressing onto wound bed. Cover with foam dressing, then transparent dressing. Perform wound care daily and as needed for dressing soiling or dislodgment. 6) Right Buttock near Ischium, Superior to Wound 5): Indentation, present on admission. site has 100% pink tissue. No odor, no drainage. Measures 0.2 cm x 0.2 cm. inferior to right buttock indentation are two white elevated lesions, no drainage. Recommend: Cover with foam dressing, then transparent dressing. Perform site care daily and as needed for dressing soiling or dislodgment. 7) Coccygeal area: Unstageable Pressure Ulcer, present on admission. Wound bed has 50% yellow slough, 50% white macerated tissue. No odor, no drainage. Periwound intact. Measures 3.0 cm X 3.0 cm. Recommend: Cleanse wound with normal saline. Pat dry. Put calmoseptine cream onto carleen-wound. Put Venelex ointment onto yellow portions of wound bed. Put calcium alginate dressing onto wound bed. Cover with foam dressing, then transparent dressing. Perform wound care daily and as needed for dressing soiling or dislodgment. 8) Left Lateral [place]: Unstageable pressure ulcer, present on admission. Wound bed has 70% black tissue, 30% yellow tissue. No odor, no drainage. Periwound has erythema and maceration. Measures 1.8 cm x 1.8 cm x 0.3 cm. Recommend: Cleanse wound with normal saline. Pat dry. Put calmoseptine cream onto carleen-wound. Put Venelex ointment onto wound bed. Cover with adhesive foam dressing. Perform wound care daily and as needed for dressing soiling or dislodgment. 9) Left Lateral Mid [place]: Area of purple discoloration, present on admission. Recommend: Dressing needed. Continue to monitor site for worsening condition. Only, offload and float site with pillow at all times. Also recommend: Reposition patient side to side only every two hours with pillow support, off-load bilateral heels in heel boots, off-load pressure areas with pillows for pressure re-distribution. Do not place patient flat on her back. Perform skin care and monitor skin integrity q shift. Use moisture barrier cream on moisture susceptible areas qid and prn for soiling. Elevate, offload, and float bilateral heels with Heelift Boots. Place patient on a Low Air-Loss Mattress. Recommend surgical consult.
--- NOTE | 2017-02-15 16:30 | NUR ---
WOUND CARE ALLISON BURCIAGA HERE TO ASSESS PT'S WOUNDS. PICTURES OF WOUNDS TAKEN AND PLACED IN CHART. WOUND CARE PERFORMED. PT TOLERATED WELL. SEE ALLISON BURCIAGAOUTPATIENT FACILITY PHYSICAL THERAPIST INSTRUCTIONS.
--- NOTE | 2017-02-15 16:30 | NUR ---
INCOMING CALL FROM OLEGARIO BOURGEOIS, FROM [facility] [employer] [employer] CALLED AND CALL WAS TRANSFERRED TO CHARGE NURSE.
--- NOTE | 2017-02-15 16:50 | NUR ---
HERE DR BAILEY HERE TO EVALUATE PT. ORDERS RECEIVED.
[2017-02-15] MEDS ORDERED: VANCOMYCIN HCL 1,000 MG in NS 250 ML IV SCH ×4 (18:30)
[2017-02-15] MEDS ORDERED: VANCOMYCIN HCL 1,000 MG in NS 250 ML IV ONE (18:30)
[2017-02-15] MEDS ORDERED: BALSAM PERU/CASTOR OIL 60 GM OINT...G. TP PRN (18:45)
[2017-02-15] MEDS ORDERED: MENTHOL/ZINC OXIDE 113 GM OINT. TP PRN (18:45)
--- NOTE | 2017-02-15 19:15 | NUR ---
ENDORSEMENT BEDSIDE REPORT GIVEN TO FELIPA BURCIAGA USING SBAR APPROACH.
--- NOTE | 2017-02-15 19:30 | NUR ---
TRANSFER OF CARE Received report from AM shift RN via SBAR. Pt in bed with eyes open. Bilateral rise and fall of the chest noted. No acute distress noted at this time. Oxymizer at 4L with 100% O2 sat. Tube feeding of Diabetisource @ 50ml/hr. Upper and lower extremities are contracted. Drew cath in place and secured draining cloudy yellow urine. PICC line on left arm patent and with blood return, no infiltration noted. Bed in lowest position, HOB elevated. Safety precautions identified, will continue to monitor.
[2017-02-15] MEDS: CEFEPIME 1 GM in D5W 50 ML IV SCH (20:53)
[2017-02-15] MEDS: MENTHOL/ZINC OXIDE 113 GM OINT. TP SCH (20:58)
[2017-02-16] VITALS (24 sets, daily range): BP systolic 93–131
--- NOTE | 2017-02-16 00:10 | NUR ---
Assumed Care Received patient in bed resting with eyes close. No s/s any distress noted. O2 noted with oxmizer @ 4L. PICC line noted to YASIR flushing well and with good blood return. Gtube noted with diabetisource at 50cc/hr, no residual noted. Colostomy is noted, no bm in the bag at this time. F/c noted with with yellow urine in the bag amounting to 400cc. Call light in reach, will cont to monitor. Addendum: 02/17/17 at 0123 by Alcides Berrios RN Correction:wrong date
[2017-02-16] MEDS ORDERED: DEXTROSE 50% JECT 50 ML DISP.SYRIN ONE ×2 (00:54→06:10)
--- NOTE | 2017-02-16 00:56 | NUR ---
BLOOD MONITORING Blood sugar went down to below 70. Hypoglycemia protocol initiated. Gave d50 and blood sugar went up to 162. Will continue to monitor Pt.
[2017-02-16] MEDS: 0.45% NACL 1,000 ML IV SCH ×5 (01:08→23:30)
[2017-02-16] MEDS: IPRATROPIUM/ALBUTEROL SULFATE 3 ML AMPUL.NEB INH PRN ×3 (04:36→19:37)
--- NOTE | 2017-02-16 06:11 | NUR ---
BLOOD MONITORING Blood sugar went down to below 70. Hypoglycemia protocol initiated. Gave d50 and blood sugar went up to 124. Will continue to monitor Pt.
--- NOTE | 2017-02-16 07:08 | NUR ---
ENDORSEMENT Gave report to AM jayda RN via SBAR.
[2017-02-16 07:29] LABS: ANION GAP 10 (5-15); CALCIUM 9.7 mg/dL (8.4-11.0); CHLORIDE 105 mmol/L (98-107); CREATININE 0.62 mg/dL (0.55-1.30); POTASSIUM 3.7 mmol/L (3.5-5.1); SODIUM SERUM 141 mmol/L (136-145); UREA NITROGEN, BLOOD 31 mg/dL (8-21)
[2017-02-16 07:30] LABS: BASOPHILS # (AUTO) 0.1 K/uL (0.0-0.2); BASOPHILS % (AUTO) 0.4 % (0.0-2.0); EOSINOPHILS # (AUTO) 0.2 K/uL (0.0-0.4); EOSINOPHILS % (AUTO) 1.1 % (0.0-4.0); HEMATOCRIT 34.7 % (36-48); HEMOGLOBIN 11.7 g/dL (12.0-16.0); MEAN CORPUSCULAR HEMOGLOBIN 31 pg (27-31); MEAN CORPUSCULAR HGB CONC 34 % (32-36); MEAN CORPUSCULAR VOLUME 91 fL (79.0-98.0); MONOCYTES # (AUTO) 0.2 K/uL (0.0-1.0); MONOCYTES % (AUTO) 1.1 % (1.7-9.3); NEUTROPHILS # (AUTO) 19.8 K/uL (1.8-7.7); PLATELET COUNT (AUTO) 392 K/uL (130-430); RED BLOOD CELL COUNT(AUTO) 3.82 MIL/uL (4.2-6.2); RED CELL DISTRIBUTION WIDTH 14.3 % (9.0-15.0); WHITE BLOOD COUNT (AUTO) 22.3 K/uL (4.8-10.8)
[2017-02-16 07:45] LABS: GLUCOSE 39 mg/dL (70-99)
--- NOTE | 2017-02-16 08:00 | NUR ---
ASSUMPTION OF CARE: RECEIVED PT ASLEEP, AROUSED VIA TACTILE STIMULI, DX:INADEQUATE VENTILATION, R/T ACUTE RESP FAILURE, SEPTIC SHOCK, UTI, VS WNL, BREATH SOUNDS ARE RHONCHI IN BILATERAL UPPER LOBES, BREATHING UNLABORED, SATURATING 99% WHILE ON 4L VIA OXYMIZER, ROUTINE HHN TX AND FREQUENT SUCTIONING GIVEN, HOB UP 45 DEGREE,COLOR IS PALE, AFEBRILE, PULSES PALPABLE, COLOSTOMY TO LEFT SIDE ABD INTACT, F/C DRAINING CLEAR, YELLOW URINE TO GRAVITY, IV PICC LINE INTACT, PATENT, NO REDNESS OR SWELLING, WILL CONT' TO MONITOR AND ASSESS.
[2017-02-16] MEDS ORDERED: DEXTROSE 50% JECT 50 ML (1 AMP) IVP PRN (08:45)
[2017-02-16] MEDS: FAMOTIDINE 20 MG TABLET PO SCH (08:49)
[2017-02-16] MEDS: PREDNISONE 20 MG TABLET PO SCH (08:50)
[2017-02-16] MEDS: HYDROcodone/ACETAMIN 5-325 MG TAB (NORCO/ VICODIN) GT SCH ×2 (08:50→21:41)
[2017-02-16] MEDS: ASCORBIC ACID 500 MG TABLET GT SCH (08:50)
[2017-02-16] MEDS: amLODIPine BESYLATE 10 MG TABLET PO SCH (08:51)
[2017-02-16] MEDS: DOCUSATE SODIUM 100 MG/10 ML UDC GT SCH ×2 (08:52→21:38)
[2017-02-16] MEDS: MULTIVITS W-MIN/FERROUS GLUC 15 ML UDC GT SCH (08:52)
[2017-02-16] MEDS: AMIODARONE HCL 200 MG TABLET GT SCH (08:52)
[2017-02-16] MEDS: HEPARIN SODIUM,PORCINE 5000 UNITS/ML VIAL SUBCUT SCH ×2 (08:54→21:47)
[2017-02-16] MEDS: MENTHOL/ZINC OXIDE 113 GM OINT. TP SCH ×4 (08:55→21:40)
[2017-02-16] MEDS: BALSAM PERU/CASTOR OIL 60 GM OINT...G. TP SCH (08:55)
[2017-02-16] MEDS: CEFEPIME 1 GM in D5W 50 ML IV SCH ×2 (08:57→21:33)
[2017-02-16] MEDS: CHLORHEXIDINE GLUCONATE 15 ML/DOSE, 480 ML MM SCH ×2 (08:57→21:39)
--- NOTE | 2017-02-16 09:00 | NUR ---
FIELD SERVICES DIRECTOR: MORNING MEDS GIVEN VIA G-TUBE, PER ORDERED BY Angle, TOLERATED WELL, WILL CONT' TO MONITOR AND ASSESS.
[2017-02-16 09:06] LABS: NEUTROPHILS % (AUTO) 88.4 % (40.0-70.0)
--- NOTE | 2017-02-16 09:26 | NUR ---
Nutrition Update Abdulkadir Scale 10 noted. Pt admitted for UTI, sepsis. Diet: Diabetisource AC at 50 ml/hr, Free Water Flush: 250 Q8HR via GT BMI: 20.3 kg/m2 RD to follow per nutrition care standards.
--- NOTE | 2017-02-16 12:00 | NUR ---
GLUCOSE MONITORING: BLOOD SUGAR LEVEL=35, 1 AMP D50 GIVEN IVP, PT IS RESPONSIVE TO TACTILE STIMULI, AFEBRILE, CALL WILL BE PLACED TO , AND CONT' TO MONITOR AND ASSESS.
--- NOTE | 2017-02-16 12:30 | NUR ---
MRSA SCREENING: RESULTS FOR MRSA NARES POS+, DR JAMES NOTIFIED, WILL CONT' WITH PLAN OF CARE.
--- NOTE | 2017-02-16 13:00 | NUR ---
GLUCOSE MONITORING: BLOOD SUGAR LEVEL REPEATED, 132 READING, STARTED ON D5NS IVF @150CC/HR, TOLERATING FEEDING, WILL CONT' TO MONITOR AND ASSESS.
--- NOTE | 2017-02-16 13:33 | NUR ---
Dietitian Recommendations * Recommend continuing Diabetisource AC at 50 ml/hr, Prosource daily, Free Water Flush: 250 Q8HR via GT Provides: 1500 kcal/day, 87 gm protein/day, and 1732 ml free water/day Meets: 113% of lower end of estimated caloric needs and 107% of lower end of estimated protein needs * Consider VIT C 2550-8681 mg/day LP, RD Please refer to Nutrition Assessment for details.
--- NOTE | 2017-02-16 15:00 | NUR ---
NURSING NOTES: PT RESTING IN POSITION OF COMFORT, NO S/S OF DISTRESS, NO SZ. ACTIVITY NOTED, NO INDICATION OF PAIN, WILL CONT' TO MONITOR AND ASSESS.
--- NOTE | 2017-02-16 17:00 | NUR ---
WOUND CARE: OPEN WOUNDS TO BUTTOCKS TREATED AND COVERED WITH CLEAN, DRY, FOAM DRSG, AND TEGADERM TRANSPARENT DRSG, TOLERATED WELL, REPOSITIONED FOR COMFORT, WILL CONT' TO MONITOR AND ASSESS.
--- NOTE | 2017-02-16 18:00 | NUR ---
GLUCOSE MONITORING: BLOOD SUGAR LEVEL, 379 READING, 10 UNITS REGULAR INSULIN GIVEN, TOLERATING FEEDING, WILL CONT' TO MONITOR AND ASSESS.
[2017-02-16] MEDS: D5NS 1,000 ML IV SCH ×2 (18:34→20:23)
[2017-02-16] MEDS: INSULIN REGULAR, HUMAN 100 UNITS/ML, 10 ML VIAL (novoLIN R) SUBCUT PRN (18:38)
--- NOTE | 2017-02-16 20:00 | NUR ---
Initial Note Received non-verbal, with eyes closed. Responds to tactile stimulus. On O2 4 L via oxymizer with 100% saturation. Carter noted. RT in room giving breathing treatment and suction. D5NS infusing to left upper arm picc line. G-tube feeding with diabetisource @ 50 cc/hr tolerating well with no residual noted. Left lower quadrant colostomy bag intact with no stool noted. Drew catheter intact draining yellow urine. HOB kept elevated. Turned and repositioned with pillow support.
[2017-02-16] MEDS: VANCOMYCIN HCL 750 MG in NS 250 ML IV SCH (21:57)
[2017-02-17] VITALS (24 sets, daily range): BP systolic 112–177
--- NOTE | 2017-02-17 00:10 | NUR ---
Assumed Care Received patient in bed resting with eyes close. No s/s any distress noted. O2 noted with oxmizer @ 4L. PICC line noted to YASIR flushing well and with good blood return. Gtube noted with diabetisource at 50cc/hr, no residual noted. Colostomy is noted, no bm in the bag at this time. F/c noted with with yellow urine in the bag amounting to 400cc. Call light in reach, will cont to monitor.
[2017-02-17] MEDS: INSULIN REGULAR, HUMAN 100 UNITS/ML, 10 ML VIAL (novoLIN R) SUBCUT PRN ×3 (00:59→18:33)
--- NOTE | 2017-02-17 02:00 | NUR ---
Rounds Empty urinal and and reposition for comfort. No s/s of any pain noted. Call light in reach, will cont to monitor.
[2017-02-17] MEDS: D5NS 1,000 ML IV SCH ×4 (05:31→21:59)
[2017-02-17 05:32] LABS: BASOPHILS # (AUTO) 0.2 K/uL (0.0-0.2); BASOPHILS % (AUTO) 1.3 % (0.0-2.0); EOSINOPHILS # (AUTO) 0.2 K/uL (0.0-0.4); HEMATOCRIT 30.6 % (36-48); HEMOGLOBIN 10.4 g/dL (12.0-16.0); LYMPHOCYTES % (AUTO) 6.2 % (20.5-51.5); MEAN CORPUSCULAR HEMOGLOBIN 30 pg (27-31); MEAN CORPUSCULAR HGB CONC 34 % (32-36); MEAN CORPUSCULAR VOLUME 90 fL (79.0-98.0); MONOCYTES # (AUTO) 0.5 K/uL (0.0-1.0); NEUTROPHILS # (AUTO) 13.7 K/uL (1.8-7.7); NEUTROPHILS % (AUTO) 88.5 % (40.0-70.0); PLATELET COUNT (AUTO) 341 K/uL (130-430); RED BLOOD CELL COUNT(AUTO) 3.41 MIL/uL (4.2-6.2); RED CELL DISTRIBUTION WIDTH 14.1 % (9.0-15.0); WHITE BLOOD COUNT (AUTO) 15.6 K/uL (4.8-10.8)
[2017-02-17 05:36] LABS: ANION GAP 5 (5-15); CALCIUM 9.1 mg/dL (8.4-11.0); CHLORIDE 107 mmol/L (98-107); CREATININE 0.69 mg/dL (0.55-1.30); GLUCOSE 156 mg/dL (70-99); POTASSIUM 3.6 mmol/L (3.5-5.1); SODIUM SERUM 141 mmol/L (136-145); UREA NITROGEN, BLOOD 18 mg/dL (8-21)
[2017-02-17] MEDS: 0.45% NACL 1,000 ML IV SCH ×2 (06:10→12:50)
--- NOTE | 2017-02-17 07:00 | NUR ---
Final notes Patient is resting comfortably. No s/s of ant distress noted. All needs met anticipated by nurses. Call light in reach, endorsed.
--- NOTE | 2017-02-17 07:43 | NUR ---
CHG bath AM care and chg bath rendered. Dressing change to L ankle was also performed. Tolerated all procedure well. Call light in reach, will cont to monitor.
--- NOTE | 2017-02-17 08:00 | NUR ---
ASSUMPTION OF CARE: RECEIVED PT ASLEEP, AROUSED VIA TACTILE STIMULI, DX:INADEQUATE VENTILATION, R/T ACUTE RESP FAILURE, SEPTIC SHOCK, UTI, VS WNL, BREATH SOUNDS ARE RHONCHI IN BILATERAL UPPER LOBES, BREATHING UNLABORED, SATURATING 99% WHILE ON 4L VIA OXYMIZER, ROUTINE HHN TX AND FREQUENT SUCTIONING GIVEN, HOB UP 45 DEGREE, COLOR IS PALE, AFEBRILE, PULSES PALPABLE, COLOSTOMY TO LEFT SIDE ABD INTACT, F/C DRAINING CLEAR, YELLOW URINE TO GRAVITY, IV PICC LINE INTACT, PATENT, NO REDNESS OR SWELLING, WILL CONT' TO MONITOR AND ASSESS.
[2017-02-17] MEDS: ASCORBIC ACID 500 MG TABLET PO SCH (09:00)
--- NOTE | 2017-02-17 09:00 | NUR ---
MEDICAID ANALYST: MORNING MEDS GIVEN VIA G-TUBE, PER ORDERED BY Angle, TOLERATED WELL, WILL CONT' TO MONITOR AND ASSESS.
[2017-02-17] MEDS: amLODIPine BESYLATE 10 MG TABLET PO SCH (09:01)
[2017-02-17] MEDS: FAMOTIDINE 20 MG TABLET PO SCH (09:01)
[2017-02-17] MEDS: DOCUSATE SODIUM 100 MG/10 ML UDC GT SCH ×2 (09:03→21:56)
[2017-02-17] MEDS: AMIODARONE HCL 200 MG TABLET GT SCH (09:03)
[2017-02-17] MEDS: MULTIVITS W-MIN/FERROUS GLUC 15 ML UDC GT SCH (09:04)
[2017-02-17] MEDS: HYDROcodone/ACETAMIN 5-325 MG TAB (NORCO/ VICODIN) GT SCH ×2 (09:04→22:01)
[2017-02-17] MEDS: PREDNISONE 20 MG TABLET PO SCH (09:04)
[2017-02-17] MEDS: HEPARIN SODIUM,PORCINE 5000 UNITS/ML VIAL SUBCUT SCH ×2 (09:06→22:01)
[2017-02-17] MEDS: CEFEPIME 1 GM in D5W 50 ML IV SCH ×2 (09:07→21:58)
[2017-02-17] MEDS: MENTHOL/ZINC OXIDE 113 GM OINT. TP SCH ×3 (09:07→22:00)
[2017-02-17] MEDS: BALSAM PERU/CASTOR OIL 60 GM OINT...G. TP SCH (09:08)
[2017-02-17] MEDS: CHLORHEXIDINE GLUCONATE 15 ML/DOSE, 480 ML MM SCH ×2 (09:08→21:58)
--- NOTE | 2017-02-17 12:00 | NUR ---
GLUCOSE MONITORING: BLOOD SUGAR LEVEL, =362, 10 UNITS REGULAR INSULIN GIVEN, TOLERATING FEEDING, WILL CONT' TO MONITOR AND ASSESS.
[2017-02-17] MEDS: IPRATROPIUM/ALBUTEROL SULFATE 3 ML AMPUL.NEB INH PRN (13:29)
--- NOTE | 2017-02-17 13:30 | NUR ---
NURSING NOTES: PT RESTING IN POSITION OF COMFORT, NO S/S OF DISTRESS, NO SZ. ACTIVITY NOTED, NO INDICATION OF PAIN, WILL CONT' TO MONITOR AND ASSESS.
[2017-02-17] MEDS ORDERED: COMMUNICATION ORDER XX ONE (15:45)
--- NOTE | 2017-02-17 16:00 | NUR ---
VISIT: AT BEDSIDE FOR ASSESSMENT OF PT, NEW ORDERS GIVEN, WILL CONT' WITH POC.
--- NOTE | 2017-02-17 18:00 | NUR ---
GLUCOSE MONITORING: BLOOD SUGAR LEVEL, =272, 6 UNITS REGULAR INSULIN GIVEN, TOLERATING FEEDING, WILL CONT' TO MONITOR AND ASSESS.
--- NOTE | 2017-02-17 21:12 | NUR ---
Patient awake non verbal COLLECTOMY Bag to lower left abdomen noted minimal brown loose stool , skin dry warm chest movement shallow also symmetrical on 02 NC @ 4 LPM / .
[2017-02-17] MEDS: VANCOMYCIN HCL 750 MG in NS 250 ML IV SCH (21:58)
--- NOTE | 2017-02-17 23:11 | NUR ---
GASTRIC TUBE FEEDING @ 50 ML HOUR KEPT UP RIGHT POSITION HOB ELEVATED , NO S/SX OF ASPIRATION POSITION CHANGE IMPLEMENTED / .
--- NOTE | 2017-02-17 23:14 | NUR ---
VANCOMYCIN 750 MG IVPB administer as ordered no s/sx of allergic reaction skin rash free continue to monitor .
--- NOTE | 2017-02-17 23:15 | NUR ---
Hourly Rounding HOB elevated , Reposition and Turing off loading with pillows kept clean & dry as needed .
[2017-02-18] VITALS (22 sets, daily range): BP systolic 101–143
[2017-02-18] MEDS: INSULIN REGULAR, HUMAN 100 UNITS/ML, 10 ML VIAL (novoLIN R) SUBCUT PRN ×4 (00:20→19:31)
--- NOTE | 2017-02-18 00:56 | NUR ---
[place] 5/325 MG PER GT administer for acute discomfort & helpful , reposition and Turing also tolerated skin dry warm bed to low position .
--- NOTE | 2017-02-18 00:58 | NUR ---
HEPARIN 5000 UNITS SUB Q. administer as ordered no s/sx of active bleeding noted / .
--- NOTE | 2017-02-18 02:47 | NUR ---
PICC LINE left upper arm dressing change , done site clean no redness noted , patient tolerated .
[2017-02-18] MEDS: D5NS 1,000 ML IV SCH ×3 (05:41→19:34)
--- NOTE | 2017-02-18 06:52 | NUR ---
BSG @ 252 MG DL , 6 UNITS OF Regular insulin sub q. administer as ordered , sliding scale no diabetic reaction noted chest movement symmetrical unlabored .
--- NOTE | 2017-02-18 07:30 | NUR ---
RECEIVED PT ALERT WITH EYES OPEN AND NON VERBAL. 02 4L NC IN USE WITH STATS 99%. HOB UP AND PTS SOUNDS VERY CONGESTED. NT SUCTIONED FRO LARGE AMOUNT OF THICK YELLOW SECRETIONS. LUNGS WITH RHONCHI AND CRACKLES BILATERALLY. LEFT ARM PICC LINE IN PLACE WITH IVF INFUSING AT 150CC/HR. ST ON MONITOR. VSS. NG IN PLACE WITH DIABETIC RESOURCE AT 50 CC/HR AND TOLERATING WITH MINIMAL RESIDUAL. ABD SOFT WITH BOWEL SOUNDS. COLOSTOMY PRESENT WITH SMALL AMT OF BROWN STOOL IN BAG. ROTH CATH IN PLACE WITH REHANA URINE IN BAG. PT HAS MULTIPLE WOUNDS TO COCCYX, LEFT HEEL AND SACRUM WITH DRESSING IN PLACE. HEEL LIFT BOOTS IN PLACE. PT REPOSITIONED IN BED. WILL CONTINUE TO MONITOR.
--- NOTE | 2017-02-18 08:45 | NUR ---
NT SUCTIONED FOR THICK YELLOW SECRETIONS. HOB UP. LUNGS CLEARER AFTER SUCTIONING
[2017-02-18] MEDS: ASCORBIC ACID 500 MG TABLET PO SCH (09:06)
[2017-02-18] MEDS: DOCUSATE SODIUM 100 MG/10 ML UDC GT SCH ×2 (09:07→20:34)
[2017-02-18] MEDS: HYDROcodone/ACETAMIN 5-325 MG TAB (NORCO/ VICODIN) GT SCH ×2 (09:07→20:28)
[2017-02-18] MEDS: FAMOTIDINE 20 MG TABLET PO SCH (09:07)
[2017-02-18] MEDS: PREDNISONE 20 MG TABLET PO SCH (09:07)
[2017-02-18] MEDS: CEFEPIME 1 GM in D5W 50 ML IV SCH ×2 (09:08→20:27)
[2017-02-18] MEDS: amLODIPine BESYLATE 10 MG TABLET PO SCH (09:08)
[2017-02-18] MEDS: AMIODARONE HCL 200 MG TABLET GT SCH (09:08)
[2017-02-18] MEDS: MENTHOL/ZINC OXIDE 113 GM OINT. TP SCH ×4 (09:09→20:33)
[2017-02-18] MEDS: CHLORHEXIDINE GLUCONATE 15 ML/DOSE, 480 ML MM SCH ×2 (09:09→20:34)
[2017-02-18] MEDS: BALSAM PERU/CASTOR OIL 60 GM OINT...G. TP SCH (09:09)
[2017-02-18] MEDS: HEPARIN SODIUM,PORCINE 5000 UNITS/ML VIAL SUBCUT SCH ×2 (09:10→20:32)
--- NOTE | 2017-02-18 12:15 | NUR ---
NT SUCTIONED FOR LOTS OF YELLOW SECRETIONS. HOB UP.
--- NOTE | 2017-02-18 12:35 | NUR ---
ACCU CHECK READING HI. GLUCOSE ORDERED.
--- NOTE | 2017-02-18 12:50 | NUR ---
SPOKE WITH DR ALVARADO REGARDING ACCU CHECK RESULTS. ORDERS LEFT.
[2017-02-18] MEDS: GENTAMICIN 100 MG/ ISO-OSM 50 ML PREMIX IV SCH (13:22)
[2017-02-18] MEDS: MULTIVITS W-MIN/FERROUS GLUC 15 ML UDC GT SCH (13:23)
[2017-02-18] MEDS ORDERED: INSULIN REGULAR, HUMAN 100 UNITS/ML, 10 ML VIAL SUBCUT ONE (13:45)
--- NOTE | 2017-02-18 14:06 | NUR ---
MICRO RESULT MORENA FROM LAB CALLED TO REPORT PRIOR BLOOD CULTURE RESULT CALLED TO ME WAS A CONTAMINANT.
--- NOTE | 2017-02-18 14:30 | NUR ---
WOUND CARE DONE. PT REPOSITIONED IN BED WITH PILLOW SUPPORTS. HEEL PROTECTORS IN PLACE. PT CONTRACTED. TOLERATING TUBE FEEDS. GOOD URINE OUTPUT.
--- NOTE | 2017-02-18 15:30 | NUR ---
CHG BATH DONE. LINEN CHANGED. NT SUCTIONED FOR LOTS OF THICK YELLOW SPUTUM. HOB UP.
--- NOTE | 2017-02-18 19:00 | NUR ---
ACCUCHECK 236. COVERAGE WILL BE GIVEN.
--- NOTE | 2017-02-18 19:20 | NUR ---
REPORT GIVEN TO ONCOMING RN.
--- NOTE | 2017-02-18 19:30 | NUR ---
Initial Notes Patient resting in bed. No s/s of pain noted. No SOB noted, on 4L/NC. PICC line patent, flushes well, infusing fluids at 150cc/hr. No s/s of nausea/vomiting at this time. G tube feeding ongoing Diabetisource @ 50cc/hr, no residual noted at this time. Dressing to left hip, right hip , buttocks and left foot, CDI. Patient noted to be contracted, repositioned in bed. Drew catheter patent, draining clear yellow urine. Colostomy on left side, very small output noted. Contact isolation maintained. Goal of pain management, resp and stability and safety this shift. Will continue to monitor.
--- NOTE | 2017-02-18 21:03 | NUR ---
Report given to GUALBERTO Zhao in [facility] for transfer and continuity of care. Will transfer patient.
[2017-02-18] MEDS: VANCOMYCIN HCL 750 MG in NS 250 ML IV SCH (22:01)
--- NOTE | 2017-02-18 22:45 | NUR ---
Initial Notes Patient resting in bed, no s/s of pain noted. No SOB noted. PICC line patent, flushes well, infusing fluids as ordered at 150cc/hr. Drew catheter output noted. Colostomy in place, output noted also. Patient repositioned in bed. Goal of pain management, /GI stability and safety this shift. Safety and contact precautions maintained. Will continue to monitor.
[2017-02-19] VITALS (7 sets, daily range): BP systolic 123–152
--- NOTE | 2017-02-19 00:05 | NUR ---
Report given to Cece for continuity of care.
--- NOTE | 2017-02-19 00:30 | NUR ---
INITIAL NOTES: Received pt awake, VSS, satting at 100% on O2 4L via NC. No distress noted. Contracted RUE and main Lower extremities. Blood glucose checked 71, pt on Diabetasource GT feeding at 50cc/hr. L. colostomy noted with scant amount. Drew cath with yellow urine output, securement in place. LUE PICC line 2 lumen infusing D5Ns@150cc/hr. Pt HOB elevated at 30. Maintain contact isolation. Pt on Low-air low mattress. Bed safety in place. To monitor.
--- NOTE | 2017-02-19 03:45 | NUR ---
ROUNDING: PT awake, no distress noted. VSS stable. Blood sugar checked 229, 4 units of Regular insulin given per protocol. Water flush given as ordered. Water flush 250 given as ordered. Call light within reach. To monitor.
[2017-02-19] MEDS: INSULIN REGULAR, HUMAN 100 UNITS/ML, 10 ML VIAL (novoLIN R) SUBCUT PRN ×5 (03:50→18:51)
[2017-02-19] MEDS: D5NS 1,000 ML IV SCH ×4 (05:05→20:52)
--- NOTE | 2017-02-19 05:45 | NUR ---
CLOSING NOTES: PT AWAKE, NO ACUTE DISTRESS NOTED, VSS, O24L VIA NC. PT HAD A BM, PERICARE PROVIDED. GT FEEDING AT 50CC/HR. LEFT COLOSTOMY IN PLACE. ROTH CATH SECURED. PICC LINE TO LUE CLEAR, PATENT. YEYO LEGS ELEVATED. PT ON LOW AIR MATTRESS. CONT CONTACT ISOLATION. TO ENDORSE TO AM NURSE.
[2017-02-19 07:24] LABS: BASOPHILS # (AUTO) 0.1 K/uL (0.0-0.2); BASOPHILS % (AUTO) 0.7 % (0.0-2.0); EOSINOPHILS # (AUTO) 0.4 K/uL (0.0-0.4); HEMATOCRIT 31.9 % (36-48); HEMOGLOBIN 10.7 g/dL (12.0-16.0); LYMPHOCYTES # (AUTO) 1.6 K/uL (1.0-5.5); LYMPHOCYTES % (AUTO) 9.3 % (20.5-51.5); MEAN CORPUSCULAR HEMOGLOBIN 30 pg (27-31); MEAN CORPUSCULAR HGB CONC 34 % (32-36); MEAN CORPUSCULAR VOLUME 89 fL (79.0-98.0); MONOCYTES # (AUTO) 0.8 K/uL (0.0-1.0); MONOCYTES % (AUTO) 4.7 % (1.7-9.3); NEUTROPHILS # (AUTO) 14.7 K/uL (1.8-7.7); NEUTROPHILS % (AUTO) 83.3 % (40.0-70.0); PLATELET COUNT (AUTO) 396 K/uL (130-430); RED CELL DISTRIBUTION WIDTH 13.9 % (9.0-15.0); WHITE BLOOD COUNT (AUTO) 17.6 K/uL (4.8-10.8)
[2017-02-19 07:42] LABS: ANION GAP 5 (5-15); CHLORIDE 104 mmol/L (98-107); GLUCOSE 198 mg/dL (70-99); SODIUM SERUM 141 mmol/L (136-145); UREA NITROGEN, BLOOD 8 mg/dL (8-21)
[2017-02-19 07:44] LABS: POTASSIUM 2.9 mmol/L (3.5-5.1)
--- NOTE | 2017-02-19 07:49 | NUR ---
OPENING NOTE: PT RESTING IN BED, SPONTANEOUSLY OPEN EYES. NO ACUTE SIGNS OF RESP DISTRESS, NO SOB. PT ON 4L O2 NC AND TOLERATING WELL. SKIN WARM DRY AND COLOR PINK. PICC LINE INTACT, NO REDNESS/SWELLING TO SITE. IVF INFUSING WELL. ROTH CATH INTACT AND DRAINING WELL TO GRAVITY. G-TUBE INTACT AND TUBE FEEDING INFUSING WELL. COLOSTOMY INTACT. BED AT LOWEST POSITION, CALL LIGHT IN REACH, SIDE RAILX3, BED ALARM ON.
--- NOTE | 2017-02-19 07:49 | NUR ---
PAGED DR. ALVARADO: PAGED DR. ALVARADO REGARDING CRITICAL LAB RESULTS. AWAITING CALL BACK.
[2017-02-19] MEDS ORDERED: POTASSIUM CHLORIDE 20 MEQ TAB.PRT.SR GT ONE (08:00)
--- NOTE | 2017-02-19 08:00 | NUR ---
DR. ALVARADO CALLED BACK: DR ALVARADO CALLED BACK. HE IS AWARE OF PATIENTS CRITICAL LAB RESULTS FOR POTASSIUM 2.9. NEW ORDERS NOTED.
[2017-02-19] MEDS: IPRATROPIUM/ALBUTEROL SULFATE 3 ML AMPUL.NEB INH PRN (08:16)
[2017-02-19] MEDS: DOCUSATE SODIUM 100 MG/10 ML UDC GT SCH ×2 (08:19→20:53)
[2017-02-19] MEDS: FAMOTIDINE 20 MG TABLET PO SCH (08:20)
[2017-02-19] MEDS: HYDROcodone/ACETAMIN 5-325 MG TAB (NORCO/ VICODIN) GT SCH ×2 (08:21→20:54)
[2017-02-19] MEDS: PREDNISONE 20 MG TABLET PO SCH (08:21)
[2017-02-19] MEDS: amLODIPine BESYLATE 10 MG TABLET PO SCH (08:21)
[2017-02-19] MEDS: AMIODARONE HCL 200 MG TABLET GT SCH (08:22)
[2017-02-19] MEDS: ASCORBIC ACID 500 MG TABLET PO SCH (08:22)
[2017-02-19] MEDS: BALSAM PERU/CASTOR OIL 60 GM OINT...G. TP SCH (08:24)
[2017-02-19] MEDS: MENTHOL/ZINC OXIDE 113 GM OINT. TP SCH ×4 (08:24→20:55)
[2017-02-19] MEDS: CHLORHEXIDINE GLUCONATE 15 ML/DOSE, 480 ML MM SCH ×2 (08:24→20:54)
[2017-02-19] MEDS: MULTIVITS W-MIN/FERROUS GLUC 15 ML UDC GT SCH (08:24)
[2017-02-19] MEDS: HEPARIN SODIUM,PORCINE 5000 UNITS/ML VIAL SUBCUT SCH ×2 (08:27→20:57)
[2017-02-19] MEDS: CEFEPIME 1 GM in D5W 50 ML IV SCH ×2 (09:00→20:21)
[2017-02-19] MEDS ORDERED: cloNIDine HCL 0.1 MG TABLET PO PRN (09:30)
--- NOTE | 2017-02-19 10:12 | NUR ---
ROUNDING: PATIENT RESTING IN BED, AROUSABLE TO LIGHT STIMULI. NO ACUTE SIGNS OF RESP DISTRESS, NO SOB. AM MEDS GIVEN PER MD ORDERS, PT TOLERATED WELL VIA G-TUBE. G-TUBE INTACT AND TUBE FEEDING INFUSING WELL. COLOSTOMY INTACT. FC INTACT AND DRAINING WELL. SKIN WARM DRY AND PINK. PICC LINE INTACT AND NO REDNESS/SWELLING TO SITE. BED AT LOWEST POSITION, CALL LIGHT IN REACH, BED ALARM ON, SIDE RAILX3.
[2017-02-19] MEDS: GENTAMICIN 100 MG/ ISO-OSM 50 ML PREMIX IV SCH (11:01)
--- NOTE | 2017-02-19 12:03 | NUR ---
ROUNDING: PT RESTING IN BED. EYES OPEN SPONTANEOUSLY. AROUSABLE TO LIGHT STIMULI. NO ACUTE SIGNS OF RESP DISTRESS, NO SOB. SKIN WARM DRY AND PINK. PICC LINE INTACT, NO REDNESS/SWELLING AROUND AREA. FC INTACT AND DRAINING WELL TO GRAVITY. COLOSTOMY INTACT. G-TUBE INTACT AND TUBE FEEDING INFUSING WELL. [employer]AT[employer]ER[employer]S AT BEDSIDE FOR TURNING AND REPOSITIONING. PT TOLERATED WELL. BED AT LOWEST POSITION, CALL LIGHT IN REACH, BED ALARM ON, SIDE RAILX3.
--- NOTE | 2017-02-19 14:15 | NUR ---
DC PLANNING Called & spoke w Dr Teran regarding dc planning, states does not know yet will come in to evaluate pt. Discussed w Dr Lambert, Physician Advisor, states to have LT[facility] eval done. Addendum: 02/19/17 at 1434 by Mariama Moran DP Faxed DC Planning order to [facility] office [phone]. Notified [facility] Calderon Will follow up.
--- NOTE | 2017-02-19 14:22 | NUR ---
ROUNDING: PT RESTING IN BED, OPENS EYES SPONTANEOUSLY. AROUSABLE TO LIGHT STIMULI. NO ACUTE SIGNS OF RESP DISTRESS, NO SOB. SKIN WARM DRY AND COLOR PINK. PICC LINE INTACT, NO REDNESS/SWELLING TO SITE. IVF INFUSING WELL. FC INTACT AND DRAINING WELL TO GRAVITY. COLOSTOMY INTACT. G-TUBE INTACT AND TUBE FEEDING INFUSING WELL. BED AT LOWEST POSITION, CALL LIGHT IN REACH, BED ALARM ON, SIDE RAILX3. CONTINUE TO MONITOR.
--- NOTE | 2017-02-19 14:52 | NUR ---
Nutrition F/U Nutritional Screening High Risk Screening Admitting Diagnosis UTI, sepsis, moderate malnutrition Reviewed Pertinent Medical/Surgical Hx Medical Record Primary RN Patient Medical History Comment: Advanced dementia, DM, paroxysmal atr fibr, stage 4 decubitus ulcer, anemia, malnutrition per MD notes Subjective Information Pt seen resting in bed, seemingly sleeping w/ +nasal cannula, and TF infusing as per MD orders. Per nursing notes, pt has been tolerating TF well. Per RN, has had minimal fecal output via colostomy. RN stated she would provide Prosource once available. Pt has no pending plans/procedures per RN report. Per EMR, TF Intakes: 350 ml 02/19/17. Residuals: 55 ml 02/19/17. Abd is soft and non-distended w/ active bowel sounds. I/O: 350/0 (+350 ml) per 12 hours. Pt is likely meeting optimal nutritional needs. Pt is not appropriate for nutrition education. Current Diet Order/Nutrition Support Diabetisource AC at 50 ml/hr, Prosource daily, Free Water Flush: 250 Q8HR via GT Patient/Significant Other Able To Verbalize Education Provided Not Indicated Pertinent Medications levemir, zinc sulfate, prednisone, certa-norman, VIT C (dose increased to 1000 mg/day as per RD rec), dulcolax suppository, gentamicin/NaCl IV, vancomycin/NaCl IV, SSI, colace Pertinent Labs BG 198 L, POC BG 218 H, BUN 8 WNL (improved), WBC 17.6 H, BNP 192 H, (02/16/17), H/H 10.7 L/31.9 L, K 2.9 L Height (Feet) 5 feet Height (Inches) 4.00 inches Weight (Pounds) 119 pounds (admission) BEDSCALE WT: 108 lb (02/19/17) -- likely inaccurate as bedscale may not have been properly calibrated to zero Weight (Calculated Kilograms) 53.013032 kilograms Patient Weight 53.977 kg Body Mass Index 20.42 kg/m2 %IBW 98 [place]/Adjusted Body Weight IBW: 120 lb, 55 kg Weight Status Underweight Usual Diet At Home Glucerna 1.5 at 55 cc/hr x20 hours Skin Integrity Comment: Abdulkadir scale: 13; per Merchant Tailor note 02/15/17: 1) Left Hip: Unstageable Pressure Ulcer, present on admission. 2) Left Buttock near Ischium: Scar tissue with erythema and maceration, present on admission. 3) Right Hip: Stage 4 pressure ulcer, present on admission. 4) Right Hip, Superior to Wound 3): Pressure ulcer, present on admission. 5) Right Buttock near Ischium: Erythema and maceration, present on admission. 6) Right Buttock near Ischium, Superior to Wound 5): Indentation, present on admission. 7) Coccygeal area: Unstageable Pressure Ulcer, present on admission. 8) Left Lateral [place]alle[place]: Unstageable pressure ulcer, present on admission. 9) Left Lateral Mid Becerra: Area of purple discoloration, present on admission. Estimated Energy Expenditure (kcals/day) 7055-8102 kcal/day (BEE x 1.2-1.5 CBW for sepsis, wound healing) Estimated Protein Required (g/day) 81-108 gm/day (1.5-2 gm/kg CBW for sepsis, wound healing) Estimated Fluid Required (l/day) 1.4-1.6 L/day (25-30 ml/kg CBW for geriatric maintenance) Problem/Etiology/Signs/Symptoms Altered nutrition-related labs related to endocrine dysfunction as evidenced by abnormal BG lab values. *ongoing Inadequate enteral nutrition related to metabolic demands as evidenced by multiple wounds, elevated WBC lab value, and estimated nutritional needs for wound healing and sepsis. *ongoing Expected Outcomes/Goals - Monitor tolerance to EN w/ goal of pt meeting at least 100% of estimated nutritional needs, labs trending WNL, normal GI function, and skin integrity/wt maintenance Dietitian Recommendations * Recommend continuing Diabetisource AC at 50 ml/hr, Prosource daily, Free Water Flush: 250 Q8HR via GT Provides: 1500 kcal/day, 87 gm protein/day, and 1732 ml free water/day Meets: 113% of lower end of estimated caloric needs and 107% of lower end of estimated protein needs * Recommend continuing VIT C 3555-1869 mg/day Follow Up High Risk: F/U in 2-3 days
--- NOTE | 2017-02-19 15:02 | NUR ---
Dietitian Recommendations * Recommend continuing Diabetisource AC at 50 ml/hr, Prosource daily, Free Water Flush: 250 Q8HR via GT Provides: 1500 kcal/day, 87 gm protein/day, and 1732 ml free water/day Meets: 113% of lower end of estimated caloric needs and 107% of lower end of estimated protein needs * Recommend continuing VIT C 8511-5211 mg/day LP, RD Please refer to Nutrition F/U for details.
--- NOTE | 2017-02-19 16:00 | NUR ---
WOUND CARE: 1) Left Hip: Unstageable Pressure Ulcer, present on admission. Wound bed is 60% pink tissue, 40% yellow tissue. Mild odor, scant yellow purulent drainage. Colt-wound and surrounding tissue has red and dark discoloration room 1-2 o'clock. Measures 7.4 cm x 7.0 cm x 2.7 cm. Undermining present from 8-11 o'clock, deepest 1.9 cm at 8 o'clock. INTERVENTION: Cleansed wound with normal saline. Put calmoseptine cream onto colt-wound. Put Venelex ointment onto wound bed. Placed two 1.6 inch tender wet dressings into wound cavity. Covered with foam dressings, then transparent dressings. Performed wound care daily and as needed for dressing soiling or dislodgment. 2) Left Buttock near Ischium: Scar tissue with erythema and maceration, present on admission. Intervention: Cleansed wound with normal saline. Patted dry. Put calmoseptine cream onto colt-wound. Put calcium alginate dressing onto wound bed. Covered with foam dressing, then transparent dressing. Performed wound care daily and as needed for dressing soiling or dislodgment. 3) Right Hip: Stage 4 pressure ulcer, present on admission. Wound bed is 90% yellow slough, 10% black tissue. Mild odor, small yellow purulent drainage. Periwound has erythema and maceration. Measures 1.2 cm x 1.9 cm by 1.3 cm. 100% undermining present from 11-5 o' clock, deepest 2.3 cm at 11 o'clock. Bone (hard feel) is palpable with cotton tipped applicator. Intervention: Cleansed wound with normal saline. Patted dry. Put calmoseptine cream onto colt-wound. Put Venelex ointment onto wound bed. Packed wound with 1/4 inch iodoform packing strip Cover with foam dressing, then transparent dressing. Performed wound care daily and as needed for dressing soiling or dislodgment. 4) Right Hip, Superior to Wound 3): Pressure ulcer, present on admission. Wound bed is 100% dark pink tissue. No odor, no drainage. Measures 0.5 cm x 0.4 cm x 0.2 cm. Intervention: Cleansed wound with normal saline. Patted dry. Put calmoseptine cream onto colt-wound. Put Venelex ointment onto wound bed. Covered with foam dressing, then transparent dressing. Performed wound care daily and as needed for dressing soiling or dislodgment. 5) Right Buttock near Ischium: Erythema and maceration, present on admission. Intervention: Cleansed wound with normal saline. Patted dry. Put calmoseptine cream onto colt-wound. Put calcium alginate dressing onto wound bed. Covered with foam dressing, then transparent dressing. Performed wound care daily and as needed for dressing soiling or dislodgment. 6) Right Buttock near Ischium, Superior to Wound 5): Indentation, present on admission. site has 100% pink tissue. No odor, no drainage. Measures 0.2 cm x 0.2 cm. inferior to right buttock indentation are two white elevated lesions, no drainage. Intervention: Covered with foam dressing, then transparent dressing. Performed site care daily and as needed for dressing soiling or dislodgment. 7) Coccygeal area: Unstageable Pressure Ulcer, present on admission. Wound bed has 50% yellow slough, 50% white macerated tissue. No odor, no drainage. Periwound intact. Measures 3.0 cm X 3.0 cm. Intervention: Cleansed wound with normal saline. Patted dry. Put calmoseptine cream onto colt-wound. Put Venelex ointment onto yellow portions of wound bed. Put calcium alginate dressing onto wound bed. Covered with foam dressing, then transparent dressing. Performed wound care daily and as needed for dressing soiling or dislodgment. 8) Left Lateral [place]: Unstageable pressure ulcer, present on admission. Wound bed has 70% black tissue, 30% yellow tissue. No odor, no drainage. Periwound has erythema and maceration. Measures 1.8 cm x 1.8 cm x 0.3 cm. Intervention: Cleansed wound with normal saline. Patted dry. Put calmoseptine cream onto colt-wound. Put Venelex ointment onto wound bed. Covered with adhesive foam dressing. Performed wound care daily and as needed for dressing soiling or dislodgment. 9) Left Lateral Mid Becerra: Area of purple discoloration, present on admission. Intervention: Dressing needed. Continued to monitor site for worsening condition. Only, offload and float site with pillow at all times. Intervention: Repositioned patient side to side only every two hours with pillow support, off-loaded bilateral heels in heel boots, off-loaded pressure areas with pillows for pressure re-distribution. Did not place patient flat on her back. Performed skin care and monitored skin integrity q shift. Used moisture barrier cream on moisture susceptible areas qid and prn for soiling. Elevated, offloaded, and floated bilateral heels with Heelift Boots. Placed patient on a Low Air-Loss Mattress.
--- NOTE | 2017-02-19 16:00 | NUR ---
Wound Re-Evaluation: Patient received in [facility] with an IsoFlex TACOS mattress with low air-loss therapy, awake, non-verbal, non-responsive to verbal cues. Skin is poor. Blood Culture x 2 in progress. MRSA Screen results positive. Urine Culture positive for Proteus mirabilis. Wound Culture positive for MRSA and Proteus mirabilis. Intrinsic Factors that delay wound healing: Diabetes Mellitus, Anemia. Extrinsic factors that decrease wound healing: immobility, very limited turning areas available. Sacral, Coccygeal, Hips, and buttocks areas have scar tissue. Wound Assessment: 1) Left Hip: Unstageable Pressure Ulcer, present on admission. Wound bed is 60% pink tissue, 40% yellow tissue. Mild odor, scant yellow purulent drainage. Colt-wound and surrounding tissue has red and dark discoloration room 1-2 o'clock. Measures 6.0 cm x 7.0 cm x 1.8 cm. Undermining present from 8-11 o'clock, deepest 2.5 cm at 8 o'clock. Recommend continue: Cleanse wound with normal saline. Put calmoseptine cream onto colt-wound. Put Venelex ointment onto wound bed. Place two 1.6 inch tender wet dressings into wound cavity. Cover with foam dressings, then transparent dressings. Perform wound care daily and as needed for dressing soiling or dislodgment. 2) Left Buttock near Ischium: Scar tissue with erythema and decreased maceration, present on admission. Recommend continue: Cleanse wound with normal saline. Pat dry. Put calmoseptine cream onto colt-wound. Put calcium alginate dressing onto wound bed. Cover with foam dressing, then transparent dressing. Perform wound care daily and as needed for dressing soiling or dislodgment. 3) Right Hip: Stage 4 pressure ulcer, present on admission. Wound bed is 90% yellow slough, 10% black tissue. Mild odor, small yellow purulent drainage. Periwound has erythema and maceration. Measures 1.5 cm x 2.0 cm by 1.5 cm. 100% undermining present from 1-10 o' clock, deepest 2.5 cm at 10 o'clock. Bone (hard feel) is palpable with cotton tipped applicator. Recommend continue: Cleanse wound with normal saline. Pat dry. Put calmoseptine cream onto colt-wound. Put Venelex ointment onto wound bed. Pack wound with 1/4 inch iodoform packing strip Cover with foam dressing, then transparent dressing. Perform wound care daily and as needed for dressing soiling or dislodgment. 4) Right Hip, Superior to Wound 3): Pressure ulcer, present on admission. Wound bed is 100% dark pink tissue. No odor, no drainage. Measures 0.5 cm x 0.4 cm x 0.2 cm. Recommend continue: Cleanse wound with normal saline. Pat dry. Put calmoseptine cream onto colt-wound. Put Venelex ointment onto wound bed. Cover with foam dressing, then transparent dressing. Perform wound care daily and as needed for dressing soiling or dislodgment. 5) Right Buttock near Ischium: Erythema and maceration, present on admission. Recommend continue: Cleanse wound with normal saline. Pat dry. Put calmoseptine cream onto colt-wound. Put calcium alginate dressing onto wound bed. Cover with foam dressing, then transparent dressing. Perform wound care daily and as needed for dressing soiling or dislodgment. 6) Right Buttock near Ischium, Superior to Wound 5): Indentation, present on admission. site has 100% pink tissue. No odor, no drainage. Measures 0.2 cm x 0.2 cm. inferior to right buttock indentation are two white elevated lesions, no drainage. Recommend: Cover with foam dressing, then transparent dressing. Perform site care daily and as needed for dressing soiling or dislodgment. 7) Coccygeal area: Unstageable Pressure Ulcer, present on admission. Wound bed has 50% yellow slough, 50% white macerated tissue. No odor, no drainage. Periwound intact. Measures 3.0 cm X 2.5 cm. Recommend continue: Cleanse wound with normal saline. Pat dry. Put calmoseptine cream onto colt-wound. Put Venelex ointment onto yellow portions of wound bed. Put calcium alginate dressing onto wound bed. Cover with foam dressing, then transparent dressing. Perform wound care daily and as needed for dressing soiling or dislodgment. 8) Left Lateral [place]: Unstageable pressure ulcer, present on admission. Wound bed has 60% black tissue, 35% yellow tissue, 5% pink tissue. No odor, no drainage. Periwound has erythema and maceration. Measures 1.8 cm x 1.5 cm x 0.3 cm. Recommend: Cleanse wound with normal saline. Pat dry. Put calmoseptine cream onto colt-wound. Put Venelex ointment onto wound bed. Cover with adhesive foam dressing. Perform wound care daily and as needed for dressing soiling or dislodgment. 9) Left Lateral Mid Becerra: Area of decreased purple discoloration, present on admission. Recommend: Dressing needed. Continue to monitor site for worsening condition. Only, offload and float site with pillow at all times. Also recommend continue: Reposition patient side to side only every two hours with pillow support, off-load bilateral heels in heel boots, off-load pressure areas with pillows for pressure re-distribution. Do not place patient flat on her back. Perform skin care and monitor skin integrity q shift. Use moisture barrier cream on moisture susceptible areas qid and prn for soiling. Elevate, offload, and float bilateral heels with Heelift Boots. Place patient on a Low Air-Loss Mattress. Recommend surgical consult.
--- NOTE | 2017-02-19 18:16 | NUR ---
CLOSING NOTE: PT RESTING IN BED, HIGH FOWLERS. NO ACUTE SIGNS OF RESP DISTRESS, NO SOB. PT IS ON 4L O2 NC AND TOLERATING WELL. SKIN WARM DRY AND COLOR PINK. PICC LINE INTACT AND PATENT, NO REDNESS/SWELLING/PAIN TO SITE. IVF INFUSING WELL. G-TUBE INTACT AND TUBE FEEDING INFUSING WELL. COLOSTOMY INTACT. FC INTACT AND DRAINING WELL TO GRAVITY. BED AT LOWEST POSITION, CALL LIGHT IN REACH, BED ALARM ON, SIDE RAILX3. WILL ENDORSE PLAN OF CARE TO GUALBERTO OSBORN.
--- NOTE | 2017-02-19 19:30 | NUR ---
Initial Notes Pt is A/Ox1, to name only. No acute distress or sob noted. VSS. IV intact. Unable to discuss plan of care due to physical and cognitive limitations. No family available at bedside. Pt is on 4L N/C with O2 saturation at 97%. Pt is afebrile. ALTAGRACIA Picc line noted, cdi, no s/s of infection noted, RN to assess. Pt is on diabetic source@50cc, with no residual noted, site checked with 10cc of bolus air. Drew cath noted to be leaking, added 3ml of saline. Pt re positioned with pillows for comfort. Aspiration precautions in place, head of bed elevated to high fowlers at all times. Colostomy bag noted to left lower abdomen, with brown formed stool noted, intact. Pt is on contact isolation precautions for MRSA of the nares and wounds. Safety precautions in place. Call light in reach. Will continue to monitor.
--- NOTE | 2017-02-19 21:00 | NUR ---
Medications given/Hygiene care Total bed bath given at this time. Dressings x3 noted to buttocks, soiled. New dressing change done as per wound care orders. Pt tolerated well. Oral care given with suctioning. All scheduled medications given as ordered via g tube. Pt re positioned with pillows for comfort. Call light within reach. Will continue to monitor.
[2017-02-19] MEDS: VANCOMYCIN HCL 750 MG in NS 250 ML IV SCH (21:16)
--- NOTE | 2017-02-20 00:30 | NUR ---
PATIENT RESTING: Patient resting quietly. No acute distress noted. Vital signs within normal range. No s/s of aspiration noted. All needs met. Call light in reach. Will continue to monitor.
--- NOTE | 2017-02-20 03:30 | NUR ---
CONSULT REASON COCCYX WOUND NECROSIS FOR DOCTOR HAYDER SPOKE WITH ESPERANZA
[2017-02-20 03:40] VITALS: BP_SYST 149
--- NOTE | 2017-02-20 04:47 | NUR ---
Rounds Pt is sleeping without any acute distress or sob noted. VSS. IV intact and infusing well as ordered. All needs met. Call light in reach. Will continue to monitor.
[2017-02-20] MEDS: D5NS 1,000 ML IV SCH ×4 (06:21→23:50)
--- NOTE | 2017-02-20 06:32 | NUR ---
Closing Notes Pt is resting with no acute distress or sob noted. Blood sugar checked, with no coverage given per sliding scale. VSS. PICC line to YASIR intact. G tube intact. New IV bag hung at this time. Colostomy bag intact. Pt in stable condition. All needs met throughout shift. Will endorse care to am nurse. Call light within reach. Will continue to monitor.
[2017-02-20 07:29] LABS: BASOPHILS # (AUTO) 0.4 K/uL (0.0-0.2); MEAN CORPUSCULAR HEMOGLOBIN 29 pg (27-31)
--- NOTE | 2017-02-20 07:30 | NUR ---
AM ROUNDS: PATIENT RESTING. CALLED NAME BUT NO RESPONSE,NON LABORED BREATHING.REPORT GIVEN AT BEDSIDE BY NIGHT NURSE.ON O2 2L/NC.GTUBE FEEDS ON GOING N PLACE. WITH ROTH DRAINING TO YELLOW URINE IN TACT.WITH DRESSING ON BOTH HIPS,CLEAN AND DRY. WITH LEFT ANKLE DRESSING DRY AND CLEAN.WITH BILATERAL HEEL LIFT BOOTS ON.ON AIR LOSS MATTRESS BED. ON CONTACT ISOLATION FOR MRSA OF NARES,PRECAUTION RENDERED.
--- NOTE | 2017-02-20 07:30 | NUR ---
ADDED NOTES: WITH COLOSTOMY BAG AT LEFT QUADRANT AREA IN PLACE.
[2017-02-20 07:42] LABS: INR 0.9 (0.8-1.2); PROTHROMBIN TIME 9.9 SECS (9.5-12.5)
[2017-02-20 07:44] LABS: BASOPHILS % (AUTO) 2.4 % (0.0-2.0); EOSINOPHILS # (AUTO) 0.4 K/uL (0.0-0.4); HEMATOCRIT 33.2 % (36-48); HEMOGLOBIN 10.5 g/dL (12.0-16.0); LYMPHOCYTES % (AUTO) 13.5 % (20.5-51.5); MEAN CORPUSCULAR HGB CONC 32 % (32-36); MEAN CORPUSCULAR VOLUME 90 fL (79.0-98.0); MONOCYTES # (AUTO) 0.6 K/uL (0.0-1.0); NEUTROPHILS # (AUTO) 11.5 K/uL (1.8-7.7); NEUTROPHILS % (AUTO) 77.1 % (40.0-70.0); PLATELET COUNT (AUTO) 393 K/uL (130-430); RED BLOOD CELL COUNT(AUTO) 3.67 MIL/uL (4.2-6.2); RED CELL DISTRIBUTION WIDTH 14.2 % (9.0-15.0); WHITE BLOOD COUNT (AUTO) 14.9 K/uL (4.8-10.8)
[2017-02-20 08:07] LABS: ANION GAP 7 (5-15); CALCIUM 9.1 mg/dL (8.4-11.0); CHLORIDE 105 mmol/L (98-107); CREATININE 0.62 mg/dL (0.55-1.30); GLUCOSE 130 mg/dL (70-99); POTASSIUM 3.6 mmol/L (3.5-5.1); SODIUM SERUM 144 mmol/L (136-145); UREA NITROGEN, BLOOD 17 mg/dL (8-21)
[2017-02-20 08:25] VITALS: BP_SYST 125
[2017-02-20] MEDS: AMIODARONE HCL 200 MG TABLET GT SCH (10:06)
[2017-02-20] MEDS: DOCUSATE SODIUM 100 MG/10 ML UDC GT SCH ×2 (10:06→20:35)
[2017-02-20] MEDS: MULTIVITS W-MIN/FERROUS GLUC 15 ML UDC GT SCH (10:06)
[2017-02-20] MEDS: CEFEPIME 1 GM in D5W 50 ML IV SCH ×2 (10:07→20:35)
[2017-02-20] MEDS: CHLORHEXIDINE GLUCONATE 15 ML/DOSE, 480 ML MM SCH ×2 (10:07→20:36)
[2017-02-20] MEDS: amLODIPine BESYLATE 10 MG TABLET PO SCH (10:07)
[2017-02-20] MEDS: HYDROcodone/ACETAMIN 5-325 MG TAB (NORCO/ VICODIN) GT SCH ×2 (10:07→20:38)
[2017-02-20] MEDS: ASCORBIC ACID 500 MG TABLET PO SCH (10:08)
[2017-02-20] MEDS: PREDNISONE 20 MG TABLET PO SCH (10:08)
[2017-02-20] MEDS: FAMOTIDINE 20 MG TABLET PO SCH (10:08)
[2017-02-20] MEDS: BALSAM PERU/CASTOR OIL 60 GM OINT...G. TP SCH (10:09)
[2017-02-20] MEDS: MENTHOL/ZINC OXIDE 113 GM OINT. TP SCH ×4 (10:09→20:35)
[2017-02-20] MEDS: HEPARIN SODIUM,PORCINE 5000 UNITS/ML VIAL SUBCUT SCH ×2 (10:09→20:50)
--- NOTE | 2017-02-20 10:17 | NUR ---
meds/gtube: crushed meds/gtube. with minimal residuals obtained prior to giving meds. flushed with water as ordered.
[2017-02-20] MEDS: GENTAMICIN 100 MG/ ISO-OSM 50 ML PREMIX IV SCH (11:35)
[2017-02-20] MEDS: INSULIN REGULAR, HUMAN 100 UNITS/ML, 10 ML VIAL (novoLIN R) SUBCUT PRN ×2 (11:43→23:48)
--- NOTE | 2017-02-20 11:44 | NUR ---
Blood sugar: Blood sugar 161mg/dl,regular insulin 2 units subcutaneous given per sliding scale.
[2017-02-20 12:33] VITALS: BP_SYST 123
--- NOTE | 2017-02-20 12:33 | NUR ---
ROUNDS: PATIENT SLEEPING DURING ROUNDS. GTUBE FEEDS ON GOING IN PLACE. ROTH DRAINING TO YELLOW URINE. WITH COLOSTOMY BAG AT LEFT QUADRANT AREA INTACT. CONTINUE TO MONITOR.
--- NOTE | 2017-02-20 14:00 | NUR ---
Rounds: Patient is asleep in bed. PICC line intact on left upper arm. G-tube intact and inplaced running at 50cc/hr. No gastric residual noted. IV D5 NS running at 150 cc/hr. patent. Drew catheter intact and draining urine of yellow color 600ml.
[2017-02-20] MEDS: VANCOMYCIN HCL 500 MG in NS 100 ML IV SCH (15:15)
--- NOTE | 2017-02-20 15:34 | NUR ---
Medications: G-tube flashed for 100ml of water. No gastric residual noted. Vancomycin IVPB was given via secondary line. Patient's PICC line is patent. Placed head of bed in 45 degree angle. reposition patient for comfort. She is mute but able to respond on touch.
--- NOTE | 2017-02-20 16:00 | NUR ---
WOUND CARE: LEFT HEEL,CLEANSE WITH NS,VENELEX OINTMENT ON WOUND BED,CALMOSEPTINE AT HERO WOUND AREA,COVERED WITH OPTI FOAM GENTLE. LEFT HIP,CLEANSE WITH NS,VENELEX OINTMENT ON WOUND BED AND TENDER WETS X2 OVER IT,CALMOSEPTINE AT HERO WOUND AREA AND COVERED WITH FOAM DRESSING WITH OP SITE.RIGHT HIP,CLEANSE WITH NS,VENELEX OINTMENT ON WOUND BED ,PACK WITH IODOFORM,CALMOSEPTINE ON HERO WOUND AREA AND COVERED WITH FOAM DRESSING AND OP SITE. RIGHT HEEL COVERED WITH OPTI FOAM DRESSING ON BONY PROMINENCE. REPOSITIONED TO RIGHT SIDE WITH PILLOW AT THE BACK.
[2017-02-20 16:36] VITALS: BP_SYST 143
--- NOTE | 2017-02-20 18:35 | NUR ---
Blood sugar: Patient's blood sugar at 1830 is 127mg/dl. No insulin coverage at this time. Patient went back to sleep. No respiratory distress noted.
--- NOTE | 2017-02-20 18:50 | NUR ---
Closing notes: Patient is on bed resting quietly. IV fluids running and intact. PICC line on left upper arm patent, dressing intact no redness noted. G-tube running at 50 ml/hr, tolerating well, no gastric residual noted. Drew intact and inplaced. No signs of respiratory distress.
--- NOTE | 2017-02-20 19:30 | NUR ---
Initial Note Pt is A/Ox1, to name only. No acute distress or sob noted. VSS. left upper arm picc noted, dressing is clean dry and intact. no redness or swelling to the site, with iv fluids infusing well as ordered. Unable to discuss plan of care due to physical and cognitive limitations. No family available at bedside. Pt is on 2L N/C with O2 saturation at 95%. Pt is afebrile. Pt is on diabetic source@50cc, with no residual noted. Drew catheter draining to gravity with clear yellow output noted. Pt re positioned with pillows for comfort. foam boots in place to bilateral lower extremeties, pt. is on low airloss mattress. Aspiration precautions in place, head of bed elevated to high fowlers at all times. Colostomy bag noted to left lower abdomen, with brown formed stool noted, intact. Pt is on contact isolation precautions for MRSA of the wounds which are noted to be on the bilateral lower extremeties and both hips. Safety precautions in place. Call light in reach. Will continue to monitor.
[2017-02-20 19:50] VITALS: BP_SYST 133
[2017-02-20] MEDS: IPRATROPIUM/ALBUTEROL SULFATE 3 ML AMPUL.NEB INH PRN (21:21)
--- NOTE | 2017-02-20 22:00 | NUR ---
ROUNDS PT. RESTING IN BED WITH EYES CLOSED. CHEST RISE AND FALL NOTED. NO S/S OF SOB OR DISTRESS. 2L NC IN PLACE. IVF INFUSING WELL ORDERED. NO SIGNS OF INFILTRATION TO LEFT UPPER ARM PICC. G TUBE FLUSHED WITH 250 CC OF FREE WATER. NO RESISTANCE NOTED. FEEDING CONTINUES TO INFUSE WELL ORDERED. HOB IN UPRIGHT POSITION TO PREVENT ASPIRATION. PILLOW SUPPORT PROVIDED, PT. REPOSITIONED FOR COMFORT. HEELS FLOATING. WILL CONT.TO MONITOR FOR CHANGES. SAFETY AND FALL PRECAUTIONS IN PLACE. CALL LIGHT IN REACH, BED IN LOWEST LOCKED POSITION WITH THE ALARM ON.
[2017-02-21] VITALS (13 sets, daily range): BP systolic 112–158
--- NOTE | 2017-02-21 00:15 | NUR ---
ROUNDS PT. RESTING IN BED, ACCUCHECK FOR 2300 WAS DONE, COVERED WITH REGULAR INSULIN PER SLIDING SCALE. PLEASE SEE EMAR. NEW BAG OF IV FLUIDS HUNG AND INFUSING AT ORDERED RATE. PT. TURNED AND REPOSITIONED FOR COMFORT WITH PILLOW SUPPORT PROVIDED. PT. HAS SCHEDULED SURGICAL DEBRIDEMENT IN AM, HOWEVER NO NPO ORDERS ARE PRESENT AND THERE IS NO SCHEDULED SURGERY TIME. CHARGE NURSE DAMIAN CASTILLO, STATES TO KEEP FEEDING ON AT THIS TIME AND SHE WILL SPEAK WITH AD OPERATIONS ASSOCIATE CARRINGTON TO SEE IF THE PATIENT IS ON THE LIST FOR SURGERY TOMORROW AND IF THERE IS A TIME. WILL CONT. TO MONITOR FOR CHANGES. SAFETY AND FALL PRECAUTIONS IN PLACE, CALL LIGHT IN REACH.
[2017-02-21] MEDS: VANCOMYCIN HCL 500 MG in NS 100 ML IV SCH (02:11)
[2017-02-21] MEDS: INSULIN REGULAR, HUMAN 100 UNITS/ML, 10 ML VIAL (novoLIN R) SUBCUT PRN ×3 (02:17→19:31)
--- NOTE | 2017-02-21 02:28 | NUR ---
ROUNDS PT. RESTING IN BED, NONVERBAL. NO SIGNS OF ACUTE DISTRESS NOTED. NO FACIAL GRIMACING INDICATING PAIN AT THIS TIME. BLOOD SUGAR NOTED TO BE 185, 2 UNITS OF REGULAR INSULIN GIVEN PER SLIDING SCALE. PT. PROVIDED WITH PILLOW SUPPORT. G TUBE FEEDING CONTINUES TO INFUSE WITH HOB IN HIGH FOWLERS. PER CLOTH SPREADER SCREEN PRINTING DAMIAN, HOLD FEEDING AT 3AM SURGERY (PLACEMENT OF SUBCLAVIAN PORTACATH UNDER ULTRASOUND + FLUROSCOPY & RIGHT HIP ULCER DEBRIDEMENT WITH POSSIBLE WOUND VAC APPLICATION) IS SCHEDULED FOR 11 AM. ALL NEEDS MET AT THIS TIME. WILL CONT. TO MONITOR FOR CHANGES. SAFETY, FALL AND CONTACT ISOLATION PRECAUTIONS IN PLACE. CALL LIGHT IN REACH.
--- NOTE | 2017-02-21 03:00 | NUR ---
G TUBE FEEDING HELD FEEDING HELD FOR PROCEDURE IN AM. CHARGE NURSE DAMIAN CASTILLO. D5NS CONTINUES TO INFUSE AT 150CC ORDERED. WILL CONT. TO MONITOR BLOOD GLUCOSE ORDERED.
--- NOTE | 2017-02-21 04:11 | NUR ---
ROUNDS PT. RESTING IN BED WITH EYES CLOSED. NO SIGNS OF ACUTE DISTRESS. NO FACIAL GRIMACING OR MOANING INDICATING PAIN. LEFT UPPER ARM PICC LINE REMAINS INTACT, AND CONTINUES TO INFUSE IVF ORDERED. PILLOW SUPPORT PROVIDED. HEELS LIFTED. ROTH DRAINING TO GRAVITY. WILL CONT. TO MONITOR. CALL LIGHT IN REACH.
--- NOTE | 2017-02-21 06:43 | NUR ---
closing note pt. resting in bed. no signs of acute distress or pain at this time. ivf cont. to infuse well as ordered. morning accu check done, blood sugar noted to be within normal limits. no insulin coverage needed per sliding scale protocol. very small amount of formed brown stool noted in colostomy bag. oral care was performed. pt. repositioned and provided with pillow support. all necessary needs were met throughout the shift. safety, fall and contact isolation precautions in place. call light in reach. bed in lowest locked position. will endorse care to am nurse.
[2017-02-21 07:12] LABS: MONOCYTES # (AUTO) 0.7 K/uL (0.0-1.0); WHITE BLOOD COUNT (AUTO) 17.7 K/uL (4.8-10.8)
[2017-02-21 07:29] LABS: BASOPHILS # (AUTO) 0.4 K/uL (0.0-0.2); BASOPHILS % (AUTO) 2.1 % (0.0-2.0); EOSINOPHILS # (AUTO) 0.4 K/uL (0.0-0.4); HEMATOCRIT 32.3 % (36-48); HEMOGLOBIN 10.9 g/dL (12.0-16.0); LYMPHOCYTES # (AUTO) 1.8 K/uL (1.0-5.5); LYMPHOCYTES % (AUTO) 10.2 % (20.5-51.5); MEAN CORPUSCULAR HEMOGLOBIN 30 pg (27-31); MEAN CORPUSCULAR HGB CONC 34 % (32-36); MEAN CORPUSCULAR VOLUME 89 fL (79.0-98.0); MONOCYTES % (AUTO) 3.7 % (1.7-9.3); NEUTROPHILS # (AUTO) 14.4 K/uL (1.8-7.7); PLATELET COUNT (AUTO) 405 K/uL (130-430); RED BLOOD CELL COUNT(AUTO) 3.63 MIL/uL (4.2-6.2); RED CELL DISTRIBUTION WIDTH 14.3 % (9.0-15.0)
[2017-02-21 07:31] LABS: ANION GAP 4 (5-15); CALCIUM 8.8 mg/dL (8.4-11.0); CHLORIDE 99 mmol/L (98-107); CREATININE 0.59 mg/dL (0.55-1.30); GLUCOSE 99 mg/dL (70-99); SODIUM SERUM 141 mmol/L (136-145); UREA NITROGEN, BLOOD 13 mg/dL (8-21)
[2017-02-21 07:42] LABS: POTASSIUM 2.8 mmol/L (3.5-5.1)
[2017-02-21 07:58] LABS: INR 0.9 (0.8-1.2); PROTHROMBIN TIME 9.9 SECS (9.5-12.5)
--- NOTE | 2017-02-21 08:00 | NUR ---
Rounds: Patient asleep in bed. Breathing even and non labored. VS taken
[2017-02-21] MEDS ORDERED: POTASSIUM CHLORIDE 20 MEQ/PKT PACKET PO ONE (08:45)
[2017-02-21] MEDS ORDERED: POTASSIUM CHLORIDE 40 MEQ in NS 250 ML IV ONE (08:45)
[2017-02-21] MEDS: CEFEPIME 1 GM in D5W 50 ML IV SCH ×2 (08:46→21:03)
[2017-02-21] MEDS: D5NS 1,000 ML IV SCH ×2 (08:47→13:00)
[2017-02-21] MEDS: amLODIPine BESYLATE 10 MG TABLET PO SCH (09:00)
[2017-02-21] MEDS: DOCUSATE SODIUM 100 MG/10 ML UDC GT SCH ×2 (09:00→20:53)
[2017-02-21] MEDS: ASCORBIC ACID 500 MG TABLET PO SCH (09:00)
[2017-02-21] MEDS: FAMOTIDINE 20 MG TABLET PO SCH (09:00)
[2017-02-21] MEDS: HEPARIN SODIUM,PORCINE 5000 UNITS/ML VIAL SUBCUT SCH ×2 (09:00→21:03)
[2017-02-21] MEDS: PREDNISONE 20 MG TABLET PO SCH (09:00)
[2017-02-21] MEDS: HYDROcodone/ACETAMIN 5-325 MG TAB (NORCO/ VICODIN) GT SCH ×2 (09:00→20:54)
[2017-02-21] MEDS: MULTIVITS W-MIN/FERROUS GLUC 15 ML UDC GT SCH (09:00)
[2017-02-21] MEDS: AMIODARONE HCL 200 MG TABLET GT SCH (09:00)
[2017-02-21] MEDS: CHLORHEXIDINE GLUCONATE 15 ML/DOSE, 480 ML MM SCH ×2 (09:09→21:04)
[2017-02-21] MEDS: MENTHOL/ZINC OXIDE 113 GM OINT. TP SCH ×4 (09:09→21:05)
[2017-02-21] MEDS: BALSAM PERU/CASTOR OIL 60 GM OINT...G. TP SCH (09:10)
--- NOTE | 2017-02-21 10:00 | NUR ---
Rounds: Patient is awake in her room. No respiratory distress noted. Reposition for comfort.
--- NOTE | 2017-02-21 10:00 | NUR ---
Notes: Patient is awake resting in her bed. breathing even and non labored. Reposition for comfort. SIGNAL MAINTENANCE TECHNICIAN did the CHG bath. Morning antibiotic Maxipime already given earlier this morning. feeding is on hold for NPO due to wound surgery. Vitals signs are stable. Heparin was also hold. PICC line upper arm patent. Drew intact draining yellow color urine. All PO meds were held. Blood sugar stable.
--- NOTE | 2017-02-21 10:06 | NUR ---
blood sugar: blood sugar taken,no insulin coverage ,patient tube feeds on hold,scheduled for surgery today.
--- NOTE | 2017-02-21 10:11 | NUR ---
DISCHARGE PLANNING Spoke with Nasim Calderon liaison patient accepted Nasim العراقي. Bed assignment will be given upon discharge order. Ordered Radiology CD. Placed transportation packet in nurses station.
[2017-02-21] MEDS: IPRATROPIUM/ALBUTEROL SULFATE 3 ML AMPUL.NEB INH PRN ×2 (11:23→22:34)
[2017-02-21] MEDS: FLUCONAZOLE 100 mg/ NS 50 ML IV SCH (11:38)
--- NOTE | 2017-02-21 11:51 | NUR ---
Notes: pouako kura kaupapa maori by OR for wound surgery.
--- NOTE | 2017-02-21 11:52 | NUR ---
report: report given to keo or nurse.
[2017-02-21] MEDS: GENTAMICIN 100 MG/ ISO-OSM 50 ML PREMIX IV SCH (12:00)
[2017-02-21] MEDS ORDERED: NACL 0.9% 1,000 ML IV SCH (12:33)
[2017-02-21] MEDS ORDERED: HYDROmorphone 1 MG INJ. 1 MG/ML AMPUL IVP PRN (12:45)
[2017-02-21] MEDS ORDERED: ONDANSETRON HCL 4 MG/2 ML VIAL IVP PRN (12:45)
[2017-02-21] MEDS ORDERED: ePHEDrine sulfate 50 MG/ML VIAL IVP PRN (12:45)
[2017-02-21] MEDS ORDERED: HYDROmorphone 2 MG/ML VIAL IVP PRN (12:45)
--- NOTE | 2017-02-21 14:10 | NUR ---
RN NOTES: PATIENT WENT TO ICU AFTER SURGERY.REPORT GIVEN TO CORY BURCIAGA FROM ICU.
--- NOTE | 2017-02-21 14:25 | NUR ---
Care assumed. Opens eyes but don't track. on 4-L NC, satting 99%. Lung sounds diminished. Gtube on abdomen, no residual noted. Colostomy is located on the left abdomen. Bowel sounds are present. F/C is in place, draining yellow urine. Picc line is on the left AC, connected to D5 NS at 150ml/hr. Wound vac is set at 125mmHg, draining the right hip. Dressing noted on the left hip, and left anterior heel. Heel boots are noted on both feet. Call light in place, bed locked at the lowest position, will continue to monitor.
--- NOTE | 2017-02-21 16:20 | NUR ---
pCO2 53. Dr. Montoya is called. Awaiting call back.
--- NOTE | 2017-02-21 16:36 | NUR ---
Wound Re-Evaluation: Patient received in a Asia bed with an IsoFlex TACOS mattress with low air-loss therapy, awake, non-verbal, non-responsive to verbal cues. Skin is poor. Blood Culture x 2 in progress. Intrinsic Factors that delay wound healing: Diabetes Mellitus, Anemia. Extrinsic factors that decrease wound healing: immobility, very limited turning areas available. Sacral, Coccygeal, Hips, and buttocks areas have scar tissue. Wound Assessment: 1) Left Hip: Unstageable Pressure Ulcer, present on admission. Wound bed is 60% pink tissue, 30% yellow tissue, 10% red tissue. Mild odor, scant yellow purulent drainage. Carleen-wound and surrounding tissue has red and dark discoloration room 1-2 o'clock. Measures 6.0 cm x 6.2 cm x 1.8 cm. Undermining present from 8-11 o'clock, deepest at 8 o'clock. Recommend continue: Cleanse wound with normal saline. Put calmoseptine cream onto carleen-wound. Put Venelex ointment onto wound bed. Place two 1.6 inch tender wet dressings into wound cavity. Cover with foam dressings, then transparent dressings. Perform wound care daily and as needed for dressing soiling or dislodgment. 2) Left Buttock near Ischium: Scar tissue with erythema and (decreased) maceration, present on admission. Recommend continue: Cleanse wound with normal saline. Pat dry. Put calmoseptine cream onto carleen-wound. Put calcium alginate dressing onto wound bed. Cover with foam dressing, then transparent dressing. Perform wound care daily and as needed for dressing soiling or dislodgment. 3) Right Hip: Stage 4 pressure ulcer, present on admission. Wound is status post surgical debridement by Dr. Montoya earlier today. Wound VAC is in place at 125 mmHg, no leakage observed. Wound VAC not removed for assessment secondary to removal of wound VAC would decrease wound temperature and retard wound healing rate. Wound VAC is due to be changed on Saturday02/25/17. Recommend: Cleanse wound with normal saline. Pat dry. Put sure prep onto carleen-wound. Put Venelex ointment onto wound bed. Place black granufoam onto wound bed. Cover with VAC drape. Build a bridge to a non-bony portion of the right hip: Apply sure prep and place VAC drape from wound to hip. Cut in place a piece of black granufoam, then cover with VAC drape. Attach vacuum suction attachment to hip. Set and run wound VAC at 125 mmHg, continuous. Change back dressing every Saturday, and as needed for dressing soiling or dislodgment. 4) Right Hip, Superior to Wound 3): Pressure ulcer, present on admission. Wound bed is 100% dark pink tissue. No odor, no drainage. Recommend continue: Cleanse wound with normal saline. Pat dry. Put calmoseptine cream onto carleen-wound. Put Venelex ointment onto wound bed. Cover with foam dressing, then transparent dressing. Perform wound care daily and as needed for dressing soiling or dislodgment. 5) Right Buttock near Ischium: Erythema and (decreased) maceration, present on admission. Recommend continue: Cleanse wound with normal saline. Pat dry. Put calmoseptine cream onto carleen-wound. Put calcium alginate dressing onto wound bed. Cover with foam dressing, then transparent dressing. Perform wound care daily and as needed for dressing soiling or dislodgment. 6) Right Buttock near Ischium, Superior to Wound 5): Indentation, present on admission. site has 100% pink tissue. No odor, no drainage. Inferior to right buttock indentation are two white elevated lesions, no drainage. Recommend continue: Cover with foam dressing, then transparent dressing. Perform site care daily and as needed for dressing soiling or dislodgment. 7) Coccygeal area: Unstageable Pressure Ulcer, present on admission. Wound bed has 50% yellow slough, 50% white macerated tissue. No odor, no drainage. Periwound intact. Recommend continue: Cleanse wound with normal saline. Pat dry. Put calmoseptine cream onto acrleen-wound. Put Venelex ointment onto yellow portions of wound bed. Put calcium alginate dressing onto wound bed. Cover with foam dressing, then transparent dressing. Perform wound care daily and as needed for dressing soiling or dislodgment. 8) Left Lateral [place]: Unstageable pressure ulcer, present on admission. Wound bed has 45% black tissue, 50% yellow tissue, 5% red tissue. No odor, no drainage. Periwound has erythema and maceration. Measures 1.3 cm x 1.0 cm x 0.2 cm. Recommend continue: Cleanse wound with normal saline. Pat dry. Put calmoseptine cream onto carleen-wound. Put Venelex ointment onto wound bed. Cover with adhesive foam dressing. Perform wound care daily and as needed for dressing soiling or dislodgment. 9) Left Lateral Mid Becerra: Area of decreased purple discoloration, present on admission. Recommend continue: Dressing needed. Continue to monitor site for worsening condition. Only, offload and float site with pillow at all times. Also recommend continue: Reposition patient side to side only every two hours with pillow support, off-load bilateral heels in heel boots, off-load pressure areas with pillows for pressure re-distribution. Do not place patient flat on her back. Perform skin care and monitor skin integrity q shift. Use moisture barrier cream on moisture susceptible areas qid and prn for soiling. Elevate, offload, and float bilateral heels with Heelift Boots. Maintain patient on a Low Air-Loss Mattress.
[2017-02-21 16:38] LABS: ALANINE AMINOTRANSFERASE 61 U/L (12-78); ALBUMIN 2.1 g/dL (3.4-4.8); ANION GAP 4 (5-15); ASPARTATE AMINOTRANSFERASE 64 U/L (10-37); CALCIUM 8.7 mg/dL (8.4-11.0); CHLORIDE 102 mmol/L (98-107); CREATININE 0.52 mg/dL (0.55-1.30); GLUCOSE 180 mg/dL (70-99); POTASSIUM 3.7 mmol/L (3.5-5.1); SODIUM SERUM 139 mmol/L (136-145); TOTAL BILIRUBIN 0.3 mg/dL (0.0-1.0); UREA NITROGEN, BLOOD 12 mg/dL (8-21)
--- NOTE | 2017-02-21 17:20 | NUR ---
Dr. Montoya returned call. No new orders were given.
--- NOTE | 2017-02-21 18:30 | NUR ---
Patient is turned and repositioned for comfort. Blood sugar checked (166), will give RI per sliding scale. All needs met, will delegate to next shift.
--- NOTE | 2017-02-21 19:30 | NUR ---
Received report from AM shift RN. Patient eyes open. Eyes open. HOB elevated to 40 degrees. O2 Stauration noted 89%. O2 increased to 2L/min N/C. Bilateral rales and rhonchi noted. Repositioned for comfort. No distress noted.
--- NOTE | 2017-02-21 23:55 | NUR ---
PATIENT SOUNDED VERY CONGESTED WITH BILATERAL RALES AND RHONCHI WITH AUSCULTATION. NOTED DESATURATING BY PULSE OXIMETER TO 70%. BAGGED WITH 100% O2 BY RT. NASAL THRUMPHET PLACE. SUCTION MODERATE THIN LIGHT YELLOW TO CLEAR SECRETIONS. PATIENT TURNED BLUE AND HR FALLS TO 6O EVERYTIME NASOPHARYNGEAL SUCTIONING IS DONE. BAGGED WITH 100% O2 AGAIN. DR. LEOS NOTIFIED ORDERED TO IVF AND LASIX [address] CASTANEDA TO CONSULT. ABG STAT DONE.BIPAP ORDERED.
[2017-02-22] VITALS (25 sets, daily range): BP systolic 87–173
[2017-02-22] MEDS: INSULIN REGULAR, HUMAN 100 UNITS/ML, 10 ML VIAL (novoLIN R) SUBCUT PRN ×4 (00:07→18:41)
[2017-02-22] MEDS ORDERED: FUROSEMIDE 40 MG/4 ML VIAL ONE (00:15)
--- NOTE | 2017-02-22 00:30 | NUR ---
DR CASTANEDA EXCHANGE NOTIFIED OF CONSULT.DR PINTO IS COVERING .TALKED TO LEAH.WAITING FOR CALL BACK.
--- NOTE | 2017-02-22 00:45 | NUR ---
ON BIPAP WITH SETTINGS FOLLOWS: I = 12, E = 5, FIO2 30%, AND BACK-UP RATE OF 16.
--- NOTE | 2017-02-22 00:53 | NUR ---
NO RESPONSE FROM DR PINTO YET, PLACED A CALL AGAIN.TALKED TO LEAH
[2017-02-22] MEDS ORDERED: FUROSEMIDE 40 MG/4 ML VIAL IVP ONE (01:00)
--- NOTE | 2017-02-22 01:30 | NUR ---
CALLED DR. PINTO'S EXCHANGE @[phone], [phone]... SPOKE TO LEAH. WAITING ON CALLBACK.
--- NOTE | 2017-02-22 02:15 | NUR ---
PT SHANTI THE BIPAP WELL, SATURATING 98-99%.COLOR IS PINK.SOUND LESS CONGESTED AND HAD URINE OUTPUT OF 350ML SINCE LASIX WAS GIVEN.PLACED A CALL AGAIN TO DR PINTO, THIS IS THE 4TH CALL.TALKED TO LEAH AND SHE TRIED AGAIN WHILE SHE PUT ME ON HOLD BUT STILL NO RESPONSE AND SHE SAID SHE TRIED EVERYTHING ALREADY.
--- NOTE | 2017-02-22 03:55 | NUR ---
Condition unchanged. No distress noted. V/S stable. Tolerating BiPAP without distress noted.
[2017-02-22 06:37] LABS: ANION GAP 4 (5-15); CALCIUM 9.1 mg/dL (8.4-11.0); CHLORIDE 95 mmol/L (98-107); CREATININE 0.61 mg/dL (0.55-1.30); GLUCOSE 140 mg/dL (70-99); SODIUM SERUM 135 mmol/L (136-145); UREA NITROGEN, BLOOD 14 mg/dL (8-21)
[2017-02-22 06:40] LABS: BASOPHILS # (AUTO) 0.1 K/uL (0.0-0.2); BASOPHILS % (AUTO) 0.6 % (0.0-2.0); EOSINOPHILS # (AUTO) 0.3 K/uL (0.0-0.4); EOSINOPHILS % (AUTO) 1.7 % (0.0-4.0); HEMATOCRIT 31.8 % (36-48); HEMOGLOBIN 10.4 g/dL (12.0-16.0); LYMPHOCYTES # (AUTO) 1.6 K/uL (1.0-5.5); LYMPHOCYTES % (AUTO) 9.8 % (20.5-51.5); MEAN CORPUSCULAR HEMOGLOBIN 30 pg (27-31); MEAN CORPUSCULAR HGB CONC 33 % (32-36); MEAN CORPUSCULAR VOLUME 90 fL (79.0-98.0); MONOCYTES # (AUTO) 0.8 K/uL (0.0-1.0); MONOCYTES % (AUTO) 4.8 % (1.7-9.3); NEUTROPHILS # (AUTO) 13.4 K/uL (1.8-7.7); NEUTROPHILS % (AUTO) 83.1 % (40.0-70.0); PLATELET COUNT (AUTO) 418 K/uL (130-430); RED BLOOD CELL COUNT(AUTO) 3.53 MIL/uL (4.2-6.2); RED CELL DISTRIBUTION WIDTH 14.6 % (9.0-15.0); WHITE BLOOD COUNT (AUTO) 16.2 K/uL (4.8-10.8)
--- NOTE | 2017-02-22 08:00 | NUR ---
AM ASSESSMENT. PT SEEN AWAKE, TEMP NORMAL RANGE, CONTRACTED EXTREMITIES, REPOSITIONED GENTLY TO HER SIDE, RIGHT HIP WOUND TO WOUND VACUUM, LEFT SIDE WITH FOAM DRESSING, COLOSTOMY WITH BROWN THICK STOOL, G TUBE INTACT, NO LEAKAGE.
--- NOTE | 2017-02-22 08:50 | NUR ---
O2. PT AWAKE, HEARD GURGLING SOUND THRU HER MOUTH, SUCTIONED ORALLY, R.T. CAME IN, SUCTIONED THRU NASAL TRUMPET, SECRETIONS WHITISH IN COLOR, PLACED PT ON VENTI MASK AFTER TREATMENT.
[2017-02-22] MEDS: IPRATROPIUM/ALBUTEROL SULFATE 3 ML AMPUL.NEB INH PRN (08:58)
[2017-02-22] MEDS: DOCUSATE SODIUM 100 MG/10 ML UDC GT SCH ×2 (08:58→21:48)
[2017-02-22] MEDS: AMIODARONE HCL 200 MG TABLET GT SCH (08:59)
[2017-02-22] MEDS: FAMOTIDINE 20 MG TABLET PO SCH (08:59)
[2017-02-22] MEDS: HYDROcodone/ACETAMIN 5-325 MG TAB (NORCO/ VICODIN) GT SCH ×2 (08:59→21:48)
[2017-02-22] MEDS: ASCORBIC ACID 500 MG TABLET PO SCH (09:00)
[2017-02-22] MEDS: PREDNISONE 20 MG TABLET PO SCH (09:00)
[2017-02-22] MEDS: amLODIPine BESYLATE 10 MG TABLET PO SCH (09:00)
[2017-02-22] MEDS: CEFEPIME 1 GM in D5W 50 ML IV SCH ×2 (09:09→22:15)
[2017-02-22] MEDS: HEPARIN SODIUM,PORCINE 5000 UNITS/ML VIAL SUBCUT SCH ×2 (09:09→21:51)
[2017-02-22] MEDS: CHLORHEXIDINE GLUCONATE 15 ML/DOSE, 480 ML MM SCH ×2 (09:09→21:48)
[2017-02-22] MEDS: MENTHOL/ZINC OXIDE 113 GM OINT. TP SCH ×4 (09:10→21:49)
[2017-02-22] MEDS: MULTIVITS W-MIN/FERROUS GLUC 15 ML UDC GT SCH (09:10)
[2017-02-22] MEDS: BALSAM PERU/CASTOR OIL 60 GM OINT...G. TP SCH (09:10)
--- NOTE | 2017-02-22 10:00 | NUR ---
SKIN CARE. TURNED TO HER SIDE, REMOVED DRESSING FROM LEFT HIP WOUND, CLEANSED WELL WITH SALINE, WOUND MOIST, PINK IN COLOR, SKIN TREATMENT DONE ORDERED, TRANSPARENT DRESSING TO COVER THE WOUND, HEELIFT BOOT OFF AND ON, LEFT ANKLE WOUND CLEANSED AND TREATMENT DONE, WITH FOAM DRESSING USED. CHG WIPES TO UNBROKEN SKIN FROM CHEST TO FEET, USED WET TOWEL TO FACE AND GENITAL PART.
[2017-02-22] MEDS: GENTAMICIN 100 MG/ ISO-OSM 50 ML PREMIX IV SCH (11:18)
[2017-02-22] MEDS: FLUCONAZOLE 100 mg/ NS 50 ML IV SCH (12:48)
--- NOTE | 2017-02-22 14:25 | NUR ---
Nutrition F/U Admitting Diagnosis UTI, sepsis, moderate malnutrition Reviewed Pertinent Medical/Surgical Hx Medical Record Primary RN Patient Medical History Comment: Advanced dementia, DM, paroxysmal atr fibr, stage 4 decubitus ulcer, anemia, malnutrition per MD notes Subjective Information Pt seen resting in bed, IV infusing, TF hung and infusing at time of RD visit. Per RN, pt is tolerating TF well, w/ 10ml residual 02/22/17. Per EMR, I/O: 1450/1850 -400ml; IV total intake: 800ml per 12 hrs. TF intake: 1000ml 02/21/17; Current TF provides: 1260 kcal and 75 gm Protein per day. Meets: 95% of lower end of estimated caloric needs and 93% of lower end of estimated protein needs. RN also stated that pt is for transfer to room today. Pt is likely meeting optimal nutritional needs. Pt is not appropriate for nutrition education. Current Diet Order/Nutrition Support Diabetisource AC at 50 ml/hr, Prosource daily, Free Water Flush: 250 Q8HR via GT Patient/Significant Other Unable To Verbalize Education Provided Not Indicated Pertinent Medications levemir, zinc sulfate, prednisone, certa-norman, VIT C (dose increased to 1000 mg/day as per RD rec), dulcolax suppository, gentamicin/NaCl IV, SSI, colace, pepcid, milk of magnesia Pertinent Labs BG 140 H, POC BG 126 H, BUN 14 WNL (improved), WBC 176.2 H, H/H 10.4 L/31.8 L, K 3 L, Na 135 L, RBC 3.53 L, Alb 2.1 L (02/21/17) Height (Feet) 5 feet Height (Inches) 4.00 inches Weight (Pounds) 119 pounds (admission) BEDSCALE WT: 108 lb (02/19/17) -- likely inaccurate as bedscale may not have been properly calibrated to zero Weight (Calculated Kilograms) 53.659523 kilograms Patient Weight 53.977 kg Body Mass Index 20.42 kg/m2 %IBW [address] [place]/Adjusted Body Weight IBW: 120 lb, 55 kg Weight Status Underweight Usual Diet At Home Glucerna 1.5 at 55 cc/hr x20 hours Skin Integrity Comment: Abdulkadir scale: 11 (02/22/17); per Shredded Filler Hopper Feeder note 02/21/17: 1) Left Hip: Unstageable Pressure Ulcer, present on admission. 2) Left Buttock near Ischium: Scar tissue with erythema and maceration, present on admission. 3) Right Hip: Stage 4 pressure ulcer, present on admission. 4) Right Hip, Superior to Wound 3): Pressure ulcer, present on admission. 5) Right Buttock near Ischium: Erythema and maceration, present on admission. 6) Right Buttock near Ischium, Superior to Wound 5): Indentation, present on admission. 7) Coccygeal area: Unstageable Pressure Ulcer, present on admission. 8) Left Lateral Malle[place]: Unstageable pressure ulcer, present on admission. 9) Left Lateral Mid Becerra: Area of purple discoloration, present on admission. Per nursing notes 02/22/17 non-pitting edema of arm. Estimated Energy Expenditure (kcals/day) 2056-7998 kcal/day (BEE x 1.2-1.5 CBW for sepsis, wound healing) Estimated Protein Required (g/day) 81-108 gm/day (1.5-2 gm/kg CBW for sepsis, wound healing) Estimated Fluid Required (l/day) 1.4-1.6 L/day (25-30 ml/kg CBW for geriatric maintenance) Problem/Etiology/Signs/Symptoms Altered nutrition-related labs related to endocrine dysfunction as evidenced by abnormal BG lab values. *ongoing Inadequate enteral nutrition related to metabolic demands as evidenced by multiple wounds, elevated WBC lab value, and estimated nutritional needs for wound healing and sepsis. *ongoing Expected Outcomes/Goals - Monitor tolerance to EN w/ goal of pt meeting at least 100% of estimated nutritional needs, labs trending WNL, normal GI function, and skin integrity/wt maintenance Dietitian Recommendations * Recommend continuing Diabetisource AC at 50 ml/hr, Prosource daily, Free Water Flush: 250 Q8HR via GT Provides: 1500 kcal/day, 87 gm protein/day, and 1732 ml free water/day Meets: 113% of lower end of estimated caloric needs and 107% of lower end of estimated protein needs * Recommend continuing VIT C 0322-9689 mg/day Follow Up High Risk: F/U in 2-3 days
--- NOTE | 2017-02-22 18:00 | NUR ---
NURSING. TURNED PT Q2H CAREFULLY, PT ABLE TO TOLERATE ACTIVITY, PILLOW APPLIED IN BETWEEN HER KNEES TO PREVENT SKIN BREAKDOWN, CONTRACTED EXTREMITIES.
--- NOTE | 2017-02-22 19:51 | NUR ---
K LEVEL. CALLED AND SPOKE WITH DR VIRAMONTES, K LEVEL 3.0, NO NEW ORDERS RECEIVED.
--- NOTE | 2017-02-22 20:00 | NUR ---
OBTUNDED. RESPONDS TO NOXIOUS STIMULI. ON O2 AT 35% VENTURI MASK. POX 95%. BREATH SOUNDS WITH CRACKLES. EXTREMITIES CONTRACTED. ON GT FEEDING WITH DIABETISOURCE AC AT 50CC/HR. RESIDUAL CHECK 0. LLQ COLOSTOMY WITH LOOSE PASTY BROWN STOOL NOTED. ROTH CATH PATENT DRAINING CLEAR YELLOW URINE TO GRAVITY. YEYO HEEL LIFT BOOTS IN PLACE. RIGHT HIP WOUND VAC IN PLACE. LEFT ANKLE WOUND DRSG D/I. LEFT HIP DRSG D/I. RIGHT SUBCLAVIAN PORTACATH DRSG D/I. LEFT UA MIDLINE DRSG D/I. SR WITH PVC'S AND PAC'S. CONTACT ISOLATION OBSERVED.
[2017-02-22] MEDS: IPRATROPIUM BROM 0.5 MG/2.5 ML VIAL.NEB (ATROVENT) INH SCH (20:34)
[2017-02-22] MEDS: ALBUTEROL SULFATE 0.083% 2.5 MG/3 ML VIAL.NEB INH SCH (20:34)
--- NOTE | 2017-02-22 22:00 | NUR ---
HS CARE. TURNED. GT FLUSHED WITH 250CC H2O. ORAL CARE GIVEN EARLIER WITH PERIDEX ORAL RINSE.
[2017-02-22] MEDS ORDERED: CEFEPIME 1 GM/VIAL (MAXIPIME) ONE (22:19)
--- NOTE | 2017-02-22 23:00 | NUR ---
ACCU-CHEK 126, NO INSULIN DUE PER SLIDING SCALE COV.
[2017-02-22] MEDS ORDERED: POTASSIUM CHLORIDE 20 MEQ/PKT PACKET GT ONE (23:30)
[2017-02-23] VITALS (23 sets, daily range): BP systolic 91–184
--- NOTE | 2017-02-23 | NUR ---
ORAL CARE. VSS. TURNED AND REPOSITIONED. RESIDUAL CHECK 0. KCL 40 MEQ GIVEN GT PER ORDER.
[2017-02-23] MEDS: ALBUTEROL SULFATE 0.083% 2.5 MG/3 ML VIAL.NEB INH SCH ×4 (01:32→19:59)
[2017-02-23] MEDS: IPRATROPIUM BROM 0.5 MG/2.5 ML VIAL.NEB (ATROVENT) INH SCH ×4 (01:33→19:59)
--- NOTE | 2017-02-23 02:00 | NUR ---
SUCTIONED BY RT THRU NASAL TRUMPET, FOAMY PINKISH MUCUS OBTAINED.
[2017-02-23] MEDS: INSULIN REGULAR, HUMAN 100 UNITS/ML, 10 ML VIAL (novoLIN R) SUBCUT PRN ×2 (03:00→19:03)
--- NOTE | 2017-02-23 03:00 | NUR ---
ACCU-CHEK 158, 2 UNITS REGULAR INSULIN SQ GIVEN PER SLIDING SCALE COV. DESATURATES IN THE 60'S , BP GOES DOWN AT TIMES. O2 CHANGED TO BIPAP 12/5, FIO2 40%, BUR 16.
--- NOTE | 2017-02-23 04:00 | NUR ---
BP LABILE. SUCTIONED, ORALLY, ORAL CARE GIVE. TURNED.
--- NOTE | 2017-02-23 05:00 | NUR ---
AM CARE, SHANTI WELL. BP UP.
--- NOTE | 2017-02-23 06:00 | NUR ---
ACCU-CHEK 112, NO INSULIN DUE PER SLIDING SCALE COV. COLOSTOMY 100CC OUT. GT FLUSHED WITH 250CC H2O. UO 550CC OUT. REMAINS IN GUARDED CONDITION.
[2017-02-23 06:59] LABS: BASOPHILS # (AUTO) 0.1 K/uL (0.0-0.2); BASOPHILS % (AUTO) 0.6 % (0.0-2.0); EOSINOPHILS # (AUTO) 0.1 K/uL (0.0-0.4); EOSINOPHILS % (AUTO) 0.6 % (0.0-4.0); HEMATOCRIT 32.3 % (36-48); HEMOGLOBIN 10.7 g/dL (12.0-16.0); LYMPHOCYTES # (AUTO) 1.5 K/uL (1.0-5.5); LYMPHOCYTES % (AUTO) 7.7 % (20.5-51.5); MEAN CORPUSCULAR HEMOGLOBIN 30 pg (27-31); MEAN CORPUSCULAR HGB CONC 33 % (32-36); MEAN CORPUSCULAR VOLUME 90 fL (79.0-98.0); MONOCYTES # (AUTO) 0.7 K/uL (0.0-1.0); MONOCYTES % (AUTO) 3.5 % (1.7-9.3); NEUTROPHILS # (AUTO) 17.7 K/uL (1.8-7.7); PLATELET COUNT (AUTO) 419 K/uL (130-430); RED BLOOD CELL COUNT(AUTO) 3.58 MIL/uL (4.2-6.2); RED CELL DISTRIBUTION WIDTH 14.7 % (9.0-15.0); WHITE BLOOD COUNT (AUTO) 20.1 K/uL (4.8-10.8)
[2017-02-23 07:07] LABS: CHLORIDE 97 mmol/L (98-107); POTASSIUM 4.1 mmol/L (3.5-5.1); SODIUM SERUM 137 mmol/L (136-145)
[2017-02-23 07:08] LABS: ALANINE AMINOTRANSFERASE 52 U/L (12-78); ALBUMIN 2.3 g/dL (3.4-4.8); ASPARTATE AMINOTRANSFERASE 33 U/L (10-37); CALCIUM 9.9 mg/dL (8.4-11.0); GLUCOSE 118 mg/dL (70-99); TOTAL BILIRUBIN 0.3 mg/dL (0.0-1.0); UREA NITROGEN, BLOOD 22 mg/dL (8-21)
[2017-02-23 07:14] LABS: ANION GAP < 3 (5-15)
--- NOTE | 2017-02-23 07:40 | NUR ---
RN OPENING ASSESSMENT. PT IS AWAKE AND CURRENTLY ON BPAP - CONGESTION NOTED IN UPPER LOBES BUT SHE IS TOLERATING THE BPAP. PT IS AFEBRILE WITH NO SIGN OF PAIN, BUT HER EXTREMITIES ARE CONTRACTED - REPOSITIONED WITH CARE. WOUND VAC ACTIVE AND FUNCTIONING WNL ON RIGHT HIP WOUND, LEFT HIP WOUND DRESSED WITH FOAM DRESSING. COLOSTOMY WITH BROWN LOOSE STOOL, G-TUBE INTACT WITH NO LEAKAGE NOTED.
[2017-02-23] MEDS: ASCORBIC ACID 500 MG TABLET PO SCH (09:08)
[2017-02-23] MEDS: DOCUSATE SODIUM 100 MG/10 ML UDC GT SCH ×2 (09:08→20:16)
[2017-02-23] MEDS: FAMOTIDINE 20 MG TABLET PO SCH (09:08)
[2017-02-23] MEDS: amLODIPine BESYLATE 10 MG TABLET PO SCH (09:09)
[2017-02-23] MEDS: PREDNISONE 20 MG TABLET PO SCH (09:10)
[2017-02-23] MEDS: AMIODARONE HCL 200 MG TABLET GT SCH (09:10)
[2017-02-23] MEDS: HYDROcodone/ACETAMIN 5-325 MG TAB (NORCO/ VICODIN) GT SCH ×2 (09:11→20:16)
[2017-02-23] MEDS: HEPARIN SODIUM,PORCINE 5000 UNITS/ML VIAL SUBCUT SCH ×2 (09:14→20:14)
[2017-02-23] MEDS: MULTIVITS W-MIN/FERROUS GLUC 15 ML UDC GT SCH (09:20)
[2017-02-23] MEDS: BALSAM PERU/CASTOR OIL 60 GM OINT...G. TP SCH (09:21)
[2017-02-23] MEDS: MENTHOL/ZINC OXIDE 113 GM OINT. TP SCH ×4 (09:21→20:17)
[2017-02-23] MEDS: CHLORHEXIDINE GLUCONATE 15 ML/DOSE, 480 ML MM SCH ×2 (09:21→20:17)
[2017-02-23] MEDS: CEFEPIME 1 GM in D5W 50 ML IV SCH ×2 (09:38→20:16)
--- NOTE | 2017-02-23 09:55 | NUR ---
DR. BUTT AT BEDSIDE
--- NOTE | 2017-02-23 11:00 | NUR ---
Aidee RIDLEY DELAYED - WAITING FOR PHARM TO DELIVER IV MED
[2017-02-23] MEDS: GENTAMICIN 100 MG/ ISO-OSM 50 ML PREMIX IV SCH (11:44)
[2017-02-23] MEDS: VANCOMYCIN HCL 500 MG in NS 100 ML IV SCH ×2 (11:44→23:26)
[2017-02-23] MEDS: FLUCONAZOLE 100 mg/ NS 50 ML IV SCH (11:44)
[2017-02-23 12:15] LABS: NEUTROPHILS % (AUTO) 87.6 % (40.0-70.0)
--- NOTE | 2017-02-23 12:19 | NUR ---
DC PLANNING: ACCEPTED AT [facility], INFORMED ASHISH THAT PT IS ON CONTINUOUS BIPAP AND HAS AN ISOLATION. PENDING DC ORDER. Addendum: 02/23/17 at 1521 by Camila Proctor RN SPOKE W/ DR. VIRAMONTES ABOUT DC PLANNING. HE WILL DC THE PT TOMORROW TO [facility] IF PT IS STABLE.
--- NOTE | 2017-02-23 12:38 | NUR ---
RN ROUNDS PT IS RESTING IN BED AND APPEARS TO BE SLEEPING WITH NO S/S OF DISTRESS. I REPOSITIONED HER FOR COMFORT.
--- NOTE | 2017-02-23 13:35 | NUR ---
DR. GUTIERREZ AT BEDSIDE
--- NOTE | 2017-02-23 15:00 | NUR ---
GUALBERTO ROUND/WOUND CARE PT SEEMS TO BE FIGHTING THE BPAP, SO I SUCTIONED HER MOUTH AND THROAT AND REPOSITIONED HER. BREATHING BECAME LESS LABORED. Addendum: 02/23/17 at 1735 by Elieser Lopez RN I ALSO CLEANED AND REDRESSED THE PERMACATH WOUNDS ON HER NECK
--- NOTE | 2017-02-23 17:00 | NUR ---
RN ROUNDS/NEW G-TUBE BAG THE FEEDING BACK WAS NEARLY EMPTY, SO I HUNG A NEW BAG OF DIABETICSOURCE WITH A NEW LINE. PT TOLERATING DIET, G-TUBE RESIDUAL LESS THAN 10 mL.
--- NOTE | 2017-02-23 19:00 | NUR ---
RN CLOSING NOTE PT IS RESTING IN BED WITH NO S/S OF DISTRESS. BREATHING IS LESS LABORED THAN AT THE BEGINNING OF THE SHIFT AND SHE IS NO LONGER FIGHTING AGAINST THE BPAP. WOUND VAC IS INTACT AND FUNCTIONING WNL. MIDLINE PORT IS PATENT AND SALINE LOCKED, DRESSING DRY AND INTACT. PT IS DRY, CLEAN, AND APPEARS TO BE COMFORTABLE THOUGH SHE CONTINUES TO BE OBTUNDED AND HER EXTREMITIES ARE CONTRACTED. REPORT ENDORSED TO GUALBERTO ZAMUDIO AT BEDSIDE
--- NOTE | 2017-02-23 21:30 | NUR ---
BP SBP 174. PRN Clonidine given as ordered. BP at this time 174/74. Will continue to monitor.
[2017-02-24] VITALS (16 sets, daily range): BP systolic 104–157
[2017-02-24] MEDS: IPRATROPIUM BROM 0.5 MG/2.5 ML VIAL.NEB (ATROVENT) INH SCH (01:20)
[2017-02-24] MEDS: ALBUTEROL SULFATE 0.083% 2.5 MG/3 ML VIAL.NEB INH SCH (01:20)
--- NOTE | 2017-02-24 02:00 | NUR ---
CHG BATH/COLOSTOMY BAG CHANGED Patient given CHG bath. Oral Care, Carleen care and Drew cath care also done. Patient's colostomy bag changed.
--- NOTE | 2017-02-24 03:08 | NUR ---
Bipap FiO2 setting changed from 35% to 30% at this time as per RT.
[2017-02-24 06:56] LABS: MONOCYTES # (AUTO) 0.6 K/uL (0.0-1.0); NEUTROPHILS # (AUTO) 14.8 K/uL (1.8-7.7); WHITE BLOOD COUNT (AUTO) 17.1 K/uL (4.8-10.8)
[2017-02-24 07:03] LABS: ALANINE AMINOTRANSFERASE 47 U/L (12-78); ALBUMIN 2.1 g/dL (3.4-4.8); ASPARTATE AMINOTRANSFERASE 42 U/L (10-37); CALCIUM 9.9 mg/dL (8.4-11.0); CHLORIDE 95 mmol/L (98-107); CREATININE 0.57 mg/dL (0.55-1.30); GLUCOSE 89 mg/dL (70-99); POTASSIUM 4.4 mmol/L (3.5-5.1); SODIUM SERUM 135 mmol/L (136-145); TOTAL BILIRUBIN 0.4 mg/dL (0.0-1.0); UREA NITROGEN, BLOOD 22 mg/dL (8-21)
[2017-02-24 07:06] LABS: BASOPHILS # (AUTO) 0.1 K/uL (0.0-0.2); BASOPHILS % (AUTO) 0.3 % (0.0-2.0); EOSINOPHILS # (AUTO) 0.2 K/uL (0.0-0.4); EOSINOPHILS % (AUTO) 0.9 % (0.0-4.0); HEMATOCRIT 29.2 % (36-48); HEMOGLOBIN 9.7 g/dL (12.0-16.0); LYMPHOCYTES # (AUTO) 1.4 K/uL (1.0-5.5); LYMPHOCYTES % (AUTO) 8.3 % (20.5-51.5); MEAN CORPUSCULAR HEMOGLOBIN 30 pg (27-31); MEAN CORPUSCULAR HGB CONC 33 % (32-36); MEAN CORPUSCULAR VOLUME 91 fL (79.0-98.0); MONOCYTES % (AUTO) 3.3 % (1.7-9.3); NEUTROPHILS % (AUTO) 87.2 % (40.0-70.0); PLATELET COUNT (AUTO) 373 K/uL (130-430); RED BLOOD CELL COUNT(AUTO) 3.22 MIL/uL (4.2-6.2); RED CELL DISTRIBUTION WIDTH 14.5 % (9.0-15.0)
[2017-02-24 07:15] LABS: ANION GAP < 3 (5-15)
--- NOTE | 2017-02-24 07:15 | NUR ---
ENDORSEMENT Patient endorsed to incoming nurse Filemon Bailey. Report given. Critical Value reported by lab at this time for CO2 value of 45. This information passed on to am nurses for proper action.
--- NOTE | 2017-02-24 07:30 | NUR ---
AM Assessment Pt awake, nonverbal, unable to follow verbal commands. No acute distress or signs of pain noted. Respirations even and unlabored on bipap 12/5, BUR 16. Skin warm and dry. Noted multiple bruises on BUE and abdomen, multiple wounds noted, right buttock connected to wound vac. PICC line in YASIR intact, patent. Pt has colostomy bag and G tube, no residual noted. Drew in place draining yellow urine. Heart sounds regular, SR with PACs on monitor, HR 70s. Adventitious lung sounds. Bowel sounds present. Bed in lowest position. Bilateral heel lift boots in place.
[2017-02-24] MEDS: PREDNISONE 20 MG TABLET PO SCH (08:40)
[2017-02-24] MEDS: ASCORBIC ACID 500 MG TABLET PO SCH (08:40)
[2017-02-24] MEDS: amLODIPine BESYLATE 10 MG TABLET PO SCH (08:40)
[2017-02-24] MEDS: HYDROcodone/ACETAMIN 5-325 MG TAB (NORCO/ VICODIN) GT SCH (08:41)
[2017-02-24] MEDS: FAMOTIDINE 20 MG TABLET PO SCH (08:42)
[2017-02-24] MEDS: DOCUSATE SODIUM 100 MG/10 ML UDC GT SCH (08:42)
[2017-02-24] MEDS: AMIODARONE HCL 200 MG TABLET GT SCH (08:42)
[2017-02-24] MEDS: CEFEPIME 1 GM in D5W 50 ML IV SCH (08:43)
[2017-02-24] MEDS: MENTHOL/ZINC OXIDE 113 GM OINT. TP SCH ×3 (08:43→15:41)
[2017-02-24] MEDS: BALSAM PERU/CASTOR OIL 60 GM OINT...G. TP SCH (08:43)
[2017-02-24] MEDS: CHLORHEXIDINE GLUCONATE 15 ML/DOSE, 480 ML MM SCH (08:44)
[2017-02-24] MEDS: HEPARIN SODIUM,PORCINE 5000 UNITS/ML VIAL SUBCUT SCH (08:47)
[2017-02-24] MEDS: MULTIVITS W-MIN/FERROUS GLUC 15 ML UDC GT SCH (08:52)
--- NOTE | 2017-02-24 09:45 | NUR ---
Dr. Casarez at bedside with patient.
--- NOTE | 2017-02-24 11:00 | NUR ---
Patient Round Pt in no acute distress, no signs of pain noted. Pt provided with oral care and suctioning. Performed wound care per wound care nurse's guidelines. Pt tolerated well. Repositioned pt.
[2017-02-24] MEDS: VANCOMYCIN HCL 500 MG in NS 100 ML IV SCH (11:08)
--- NOTE | 2017-02-24 12:00 | NUR ---
Patient Round Pt in no acute distress or signs of pain noted. Provided oral care and suctioning. Provided wound care per wound care nurse's suggested guidelines. Photographs taken of all wounds. Pt repositioned. Bed in lowest position. Will continue to monitor.
[2017-02-24] MEDS: GENTAMICIN 100 MG/ ISO-OSM 50 ML PREMIX IV SCH (12:03)
--- NOTE | 2017-02-24 12:18 | NUR ---
1200 PT TAKEN OFF BIPAP, PLACED ON 3L OXYMIZER.SAT 98%HR85 RR 25, SUCTIONED LARGE THICK WHITE SECRETIONS. Addendum: 02/24/17 at 1220 by Kenya Jefferson RT Amended: Links added.
--- NOTE | 2017-02-24 13:15 | NUR ---
Transfer to Telemetry Pt transfer to 119A with continuous monitoring. Pt tolerated well, no acute distress or signs of pain noted. Endorsed plan of care to Elizabeth Gramajo LVN. All belongings and medications sent with patient.
--- NOTE | 2017-02-24 13:25 | NUR ---
ICU Transfer Received patient from ICU via bed awake but eyes just looking up and non verbal. No signs of facial grimacing for pain or discomfort. Pt appears very congested with crackling lung sounds. air sampling and monitoring in place. Vital signs: T-97.6, P-88, R-18, BP-125/54, O2 sat-87%. Pt on O2 oxymizer @ 3L. Aidan cath to right subclavian area. Midline to left upper arm with Gentamycin antibiotic infusing. G-tube in place with Diabetisource feeding @ 50 cc/hr infusing. Pt has a colostomy and a Drew catheter. Multiple wounds noted. Wound vac to right hip. Pt is contracted to her upper and lower extremities. Pt has bilateral heel lift boots. Suctioned patient, Repositioned and kept comfortable. Fall, safety and isolation precaution enforced.Will monitor.
--- NOTE | 2017-02-24 14:00 | NUR ---
Dr. Mona MEDINA doing rounds and re-assessing patient.
[2017-02-24] MEDS: FLUCONAZOLE 100 mg/ NS 50 ML IV SCH (14:18)
[2017-02-24] MEDS: INSULIN REGULAR, HUMAN 100 UNITS/ML, 10 ML VIAL (novoLIN R) SUBCUT PRN ×2 (15:48→19:30)
--- NOTE | 2017-02-24 15:54 | NUR ---
Rounds Pt awake with productive secretions. Suctioned and repositioned. Accucheck 200. Insulin sliding scale administered.
--- NOTE | 2017-02-24 17:30 | NUR ---
Rounds Pt asleep but with too much chest secretions. O2 sat 88%. Suctioned and repositioned. O2 sat 92% after suctioning. Kept comfortable. Will monitor.
--- NOTE | 2017-02-24 17:42 | NUR ---
Nasim العراقي Report was called to Nasim العراقي @ and spoke with GUALBERTO Kulkarni. Patient will be going to room 311-A.
--- NOTE | 2017-02-24 19:05 | NUR ---
Closing notes Pt asleep. No signs of facial grimacing for pain or discomfort. Crackling secretions heard. Suctioned and repositioned. Pt will be transferred to Nasim العراقي. Will endorse care to incoming nurse.
--- NOTE | 2017-02-24 19:48 | NUR ---
PAGED:inga I PAGED [facility] @ 092 I SPOKE WITH JOHN SPECIAL NEEDS LIBRARIAN TIME WILL BE @ 1999
--- NOTE | 2017-02-24 20:30 | NUR ---
discharge [facility] paramedics here pt transported to [facility],room 311a packet given to [employer] planner's pt condition is unchanged.
--- NOTE | 2017-02-24 20:30 | NUR ---
pt.transferred to [facility]:jere;ladarius galloway.andie received the pt's report;data/info per the day shift;nsg.pt.transferred in stable condition.all pt's belongings reviewed.v/s stable. nuvia conveyed the pt's report:data/info to ambulance/emt staff.
== END 2017-02-24 20:30 | DRG 853 ==
LOC: SED 21:49 → SIC 02-15 00:50 → STU 02-18 22:27 → SIC 02-21 15:00 → STU 02-24 13:15
PROVIDERS: ADMIT Family Medicine; ATTEND Family Medicine
PROC: B549ZZA Ultrasonography of Inferior Vena Cava, Guidance (ICD-10-PCS; 2017-02-21)
PROC: 0JH60WZ Insertion of Totally Implantable Vascular Access Device into Chest Subcutaneous Tissue and Fascia, Open Approach (ICD-10-PCS; 2017-02-21)
PROC: 0JD70ZZ Extraction of Back Subcutaneous Tissue and Fascia, Open Approach (ICD-10-PCS; principal; 2017-02-21 11:00)
PROC: 06H033Z Insertion of Infusion Device into Inferior Vena Cava, Percutaneous Approach (ICD-10-PCS; 2017-02-21 11:00)
PROC: 5A09457 Assistance with Respiratory Ventilation, 24-96 Consecutive Hours, Continuous Positive Airway Pressure (ICD-10-PCS; 2017-02-23)
DX: A41.1 Sepsis due to other specified staphylococcus (principal); R65.21 Severe sepsis with septic shock; J96.00 Acute respiratory failure, unspecified whether with hypoxia or hypercapnia; J69.0 Pneumonitis due to inhalation of food and vomit; L89.154 Pressure ulcer of sacral region, stage 4; N17.9 Acute kidney failure, unspecified; L89.309 Pressure ulcer of unspecified buttock, unspecified stage; E43 Unspecified severe protein-calorie malnutrition; Z99.11 Dependence on respirator [ventilator] status; N39.0 Urinary tract infection, site not specified; M86.8X8 Other osteomyelitis, other site; E11.69 Type 2 diabetes mellitus with other specified complication; B95.62 Methicillin resistant Staphylococcus aureus infection as the cause of diseases classified elsewhere; I10 Essential (primary) hypertension; J44.9 Chronic obstructive pulmonary disease, unspecified; E11.65 Type 2 diabetes mellitus with hyperglycemia; F03.90 Unspecified dementia, unspecified severity, without behavioral disturbance, psychotic disturbance, mood disturbance, and anxiety; D64.9 Anemia, unspecified; G20 Parkinson's disease; E86.0 Dehydration; L89.529 Pressure ulcer of left ankle, unspecified stage; E78.5 Hyperlipidemia, unspecified; B96.4 Proteus (mirabilis) (morganii) as the cause of diseases classified elsewhere; I48.0 Paroxysmal atrial fibrillation; E87.70 Fluid overload, unspecified; Z68.20 Body mass index [BMI] 20.0-20.9, adult; Z87.440 Personal history of urinary (tract) infections; Z93.1 Gastrostomy status; Z88.8 Allergy status to other drugs, medicaments and biological substances; Z93.3 Colostomy status; Z79.899 Other long term (current) drug therapy
CPT/HCPCS: 36415; 36600; 71010; 80048; 80053; 80170-TC; 80202-TC; 81000-TC; 82803-TC; 82947-TC; 82962; 83605; 83880; 84484; 85007; 85025; 85027; 85610-TC; 85730-TC; 87040-TC; 87070-TC; 87081; 87086; 87186-TC; 93005; 94640; 94660; 94760; 96361; 96365; 96367; 99285; A6209; A6550; C1788; J0692; J1120; J1450; J1580; J1644; J1815; J1940; J1956; J2185; J3370; J3480; J7030; J7042; J7050; J7060; J7512